=== PATIENT | male | born 1960 | race Caucasian/White ===

== ENCOUNTER → 2018-03-05 15:05 | Outpatient (POV) | payer MEDICARE, MEDICAID, SELFPAY ==
[2018-03-05 17:00] LABS: Basophils # 0.1 K/mm3 (0-0.2); Basophils % 0.6 % (0.1-2.0); Eosinophils # 0.3 K/mm3 (0.0-0.4); Eosinophils % 2.5 % (0.1-12.0); Hematocrit 54.9 % (42.0-52.0); Hemoglobin 16.9 g/dL (14.1-18.0); Lymphocytes # 2.1 K/mm3 (0.7-4.5); Mean Corpuscular HGB Conc 30.7 g/dL (31.8-35.4); Mean Corpuscular Hemoglobin 26.2 pg (27.0-31.2); Mean Corpuscular Volume 85.1 fl (80-94); Mean Platelet Volume 11.4 fl (7.4-10.4); Monocytes # 0.2 K/mm3 (0.1-1.0); Monocytes % 2.2 % (1.7-9.3); Neutrophils # 7.4 K/mm3 (1.8-7.8); Neutrophils % 73.5 % (37.0-80.0); Platelet Count 88 K/mm3 (142-424); Red Blood Count 6.45 M/mm3 (4.60-6.20); Red Cell Distribution Width 15.4 % (11.5-17.5); White Blood Count 10.1 K/mm3 (4.8-10.8)
[2018-03-05 18:48] LABS: Alanine Aminotransferase 31 U/L (12-78); Albumin Level 4.8 gm/dL (3.4-5.0); Albumin/Globulin Ratio 1.2 (1.1-1.8); Alkaline Phosphatase 133 U/L (46-116); Anion Gap 15.3 mEq/L (5-15); Aspartate Amino Transferase 21 U/L (15-37); Bilirubin,Total 1.6 mg/dL (0.2-1.0); Blood Urea Nitrogen 10 mg/dL (7-18); Calcium 9.6 mg/dL (8.5-10.1); Carbon Dioxide 29 mmol/L (21.0-32.0); Chloride 98 mmol/L (98-107); Creatinine,Serum 0.82 mg/dL (0.70-1.30); Estimated Glomerular Filt Rate 96 ml/min (>60); GFR (African American) 116 ML/MIN (>60); Glucose 89 mg/dL (74-106); Potassium 4.3 mmoL/L (3.5-5.1); Sodium 138 mmol/L (136-145); Total Protein,Serum 8.8 gm/dL (6.4-8.2)
[2018-03-07 11:17] LABS: Alpha-1-Antitrypsin 126 mg/dL (90-200)
[2018-03-08 17:06] LABS: Phenotype (PI) MZ (.)
[2018-03-09 20:24] LABS: Immunoglobulin E, Total 70 IU/mL (0-100)
== END ==
PROVIDERS: Family Provider Family Medicine; PCP Emergency Medicine; Visit Provider Internal Medicine
DX: J44.9 Chronic obstructive pulmonary disease, unspecified (principal); J30.9 Allergic rhinitis, unspecified; Z82.5 Family history of asthma and other chronic lower respiratory diseases; F17.200 Nicotine dependence, unspecified, uncomplicated
CPT/HCPCS: 36415; 80053; 82104; 82785; 85025

== ENCOUNTER → 2018-04-17 07:38 | Outpatient (CLI) | payer MEDICARE, MEDICAID, SELFPAY ==
--- NOTE | 2018-04-17 07:41 | CT_ITS ---
EXAM: CT LUNG LOW DOSE WO CONTRAST TECHNIQUE: The exam was performed on a [employer] Light Speed [address] scanner using 3.0 mGy CTDI. A low dose helical CT CHEST was performed on a multi-detector scanner. All CT scans at this facility use one or more dose reduction techniques, viz.: automated exposure control; ma/kV adjustment per patient size (including targeted exams where dose is matched to indication; i.e. head) or iterative reconstruction technique. The LDCT was performed in a facility that meets the criteria for the screening program. Data regarding this exam was submitted to [employer] which is an approved registry. The order for this exam indicates that it came as a result of a lung cancer screening counseling shard decision-making visit that included all the elements required of such a visit including smoking cessation. The radiologist interpreting this exam meets the CMS criteria for the LDCT lung cancer screening program. The exam is reported using the Lung-RADS classification scale and reported to the ACR registry. NOTE: This study was performed for the specific purposes of lung cancer screening and is not an alternative to diagnostic chest CT. RADIATION DOSE: CTDI vol(CT dose Index-volume) = 2.9mGy DLP (Dose Length Product) = 110.86 mGy-cm ========= COMPARISON: CTA chest from March 2014 HISTORY: Currently smoking 1 pack per day for 50 years = 50 pack-year history FINDINGS: No suspicious lung nodules or masses. . Benign nodules(Category1)None Tiny benign calcified granuloma 3 mm at right middle lobe just anterior to the major fissure. Axial slice 35 sagittal 28. LUNG PARENCHYMA Emphysema: Mild centrilobular emphysematous changes . . Minimal scarring & minor fibrotic changes most evident towards the right lung base posteriorly but also seen on the left lung base. This. Slight blunting at the posterior sulcus due to some chronic pleural changes posterior sulcus.. Also note scant fibrotic changes just adjacent mediastinum superior right chest. . Airways appear satisfactory. 22 Mediastinum Scattered small moderate mediastinal lymph nodes unchanged since The largest at the precarinal region measuring 17 mm x just over 9 mm, has remained stable. A smaller right paratracheal node measuring 11 mm stable. Calcification aortic arch and origin of great vessels moderate size benign-appearing axillary lymph nodes.. OTHER ANATOMIC REGIONS Lymph Nodes: No enlarged lymph nodes evident. Scattered small nodes are present in the mediastinum and evonne Pleura: Unremarkable Cardiac: Coronary artery calcifications. Heart normal size and today's study no pericardial effusion. OTHER FINDINGS: No uppermost abdomen. Renal vascular calcifications on right. Likely sludge in gallbladder. No calcified stones. IMPRESSION: 1. Mild emphysematous changes Lung styles appear stable and similar since [address] . Minimal scarring most evident towards bases 2. No suspicious nodule or lung mass. 3. Lung RADS Category: 1 Only note small calcified granuloma RML. Not of concern 4.. Moderately extensive Coronary artery calcification RECOMMENDATIONS: 12 monthd LDCT follow-up
== END ==
PROVIDERS: Family Provider Family Medicine; PCP Emergency Medicine; Visit Provider Internal Medicine
DX: Z12.2 Encounter for screening for malignant neoplasm of respiratory organs; Z87.891 Personal history of nicotine dependence; J44.9 Chronic obstructive pulmonary disease, unspecified; J30.9 Allergic rhinitis, unspecified

== ENCOUNTER → 2018-07-18 14:32 | Outpatient (CLI) | payer MEDICARE, MEDICAID, SELFPAY | PROVIDERS: PCP Emergency Medicine; Visit Provider Internal Medicine Cardiovascular Disease | DX: I10 Essential (primary) hypertension; R42 Dizziness and giddiness | CPT/HCPCS: 93225 ==

== ENCOUNTER → 2018-08-06 06:44 | Outpatient (CLI) | payer MEDICARE, MEDICAID, SELFPAY ==
--- NOTE | 2018-08-06 06:47 | CA_ITS ---
PROCEDURE: 2-D M-mode and color Doppler study INDICATIONS FOR THE TEST: Chest pain COPD+ Heart Murmur Tobacco Smoking+ Palpitations Fatigue Syncope Edema Hypertension+Diabetes Mellitus Rheumatic Fever SOB RODARTE Obesity Hyperlipidemia Family History HD Additional History CATH, IN PATIENT INFORMATION HEIGHT: 64 WEIGHT:168 GENDER: Male B/P:105/64 2-D/M-MODE INTERPRETATION: 2-D MEASUREMENTS OBSERVED VALUES IN CMS Right Ventricular Dimension (RVDd) 2.2 Interventricular Septum (Thickness)(IVsd) 1.6 Left Ventricular Internal Dimensions(LVIDd) 4.5 Left Ventricular Posterior Wall (Thickness)(LVPWd) 0.8 Aortic Root 3.1 Aortic Cusp Separation 2.0 Left Atrial Dimensions (LAD) 3.8 2D 1. Technically difficult study because of the patient's factor and poor acoustic windows 2. The left atrium is mildly enlarged, left ventricle is normal size, mild concentric left ventricular hypertrophy, visually estimated ejection fraction 50%, with inferior wall hypokinesis. Endocardial surface of poorly visualized. 3. The right atrium and the ventricular normal size and contractility. 4. The aortic valve is minimally thickened and fibrosed. 5. The mitral and tricuspid valvular grossly normal. 6. No significant pericardial effusion noted. DOPPLER INTERROGATION: Doppler interrogation of the aortic, mitral and tricuspid valvular presence of mild mitral and tricuspid regurgitation, tricuspid regurgitation jet velocity is inadequate for calculation of the right ventricular systolic pressure, grade 1 diastolic dysfunction seen with tissue Doppler evidence of raised left atrial pressure. CONCLUSION: 1. Technically difficult study because of the patient's factor and poor acoustic windows 2. Mildly enlarged left atrium, normal left ventricular size, mild concentric left ventricular hypertrophy, visually estimated ejection fraction 50% with no wall motion abnormality described above, grade 1 diastolic dysfunction seen with tissue Doppler evidence of raised left atrial pressure. 3. Mild mitral and tricuspid regurgitation 4. No significant pericardial effusion noted.
--- NOTE | 2018-08-06 06:47 | NM_ITS ---
History and Indications: Hypertension, hyperlipidemia, tobacco use, shortness of breath and fatigue Procedure: Patient received a 0.4 mg of intravenous Lexiscan, resting heart rate was 48 bpm resting blood pressure 101/61, with Lexiscan maximum heart rate achieved was 82 bpm which is less than 85% of the maximum predicted heart rate and a blood pressure was 111/80. With Lexiscan patient complained of shortness of breath Electrocardiogram: Resting echocardiogram showed sinus bradycardia, with Lexiscan less than 1.[address] segment depression noted from the baseline EKG. The EKG portion of the Lexiscan Myoview is nondiagnostic. Cardiac stress and resting SPECT images: Cardiac stress and resting SPECT images were obtained using technetium 99 Myoview 31.3 mCi at stress and 10.6 mCi at rest. Gated SPECT further analysis of segmental wall motion and calculation of the ejection fraction also done. Cardiac stress and resting SPECT images show a mild reversible, computer derived ejection fraction is 56% with no regional wall motion abnormality, right ventricle is normal size and contractility. Conclusion: 1. The EKG portion of the Lexiscan Myoview is nondiagnostic. 2. Scintigraphic evidence of mild reversible ischemia involving the apex, computer derived ejection fraction 56% with no regional wall motion abnormality, right ventricle is normal size and contractility. 3. Abnormal Lexiscan Myoview study.
--- NOTE | 2018-08-06 07:35 | HMH.ITSHM ---
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 []ASA BISOPROLOL MONTELUKAST LEVOCETIRIZINE MECLIZINE BENAZEPRIL VITAMIN D3 VENTOLIN SYMBICORT
--- NOTE | 2018-08-06 07:52 | CI_ITS ---
Cerebrovascular Exam Indications: 780.4 Dizziness and giddiness. IMPRESSIONS 1. The bilateral vertebral arteries are patent with normal antegrade flow. 2. Study suggests 20-49% stenosis involving the right internal carotid artery and the left internal carotid artery, lower end of scale Carotid duplex study. Complete study and Doppler flow study including spectral analysis, color and may scale imaging. Height: Height: 165.1cm. Height: 65in. Weight: Weight: 76.2kg. Weight: 167.7lb. Body mass index: BMI: 28kg/m^2. Body surface area: BSA: 1.89m^2. Location: Vascular laboratory. Patient status: Outpatient. Tables: Arterial flow: + +--------+--------+ Location V sys V ed + +--------+--------+ Right CCA - proximal 105cm/s 32.2cm/s + +--------+--------+ Right CCA - distal 71.1cm/s 23.2cm/s + +--------+--------+ Right ECA 126cm/s -------- + +--------+--------+ Right ICA - proximal 93.6cm/s 30.7cm/s + +--------+--------+ Right ICA - mid 80.8cm/s 26.2cm/s + +--------+--------+ Right ICA - distal 76.8cm/s 31.4cm/s + +--------+--------+ Right vertebral 61.2cm/s -------- + +--------+--------+ Left CCA - proximal 97.7cm/s 24.6cm/s + +--------+--------+ Left CCA - distal 85.4cm/s 18.2cm/s + +--------+--------+ Left ECA 121cm/s -------- + +--------+--------+ Left ICA - proximal 57.3cm/s 14.3cm/s + +--------+--------+ Left ICA - mid 63.6cm/s 24.7cm/s + +--------+--------+ Left ICA - distal 72.3cm/s 26.7cm/s + +--------+--------+ Left vertebral 25.8cm/s -------- + +--------+--------+ Velocity ratios: + + + + + + Right, V sys Right, V ed Left, V sys Left, V ed + + + + + + Max ICA/dist CCA 1.32 1.35 0.85 1.47 + + + + + + (Report amended ) Electronically signed by: Ron Long [id number]
== END ==
PROVIDERS: PCP Emergency Medicine; Visit Provider Internal Medicine Cardiovascular Disease
DX: F17.200 Nicotine dependence, unspecified, uncomplicated (principal); I10 Essential (primary) hypertension; J44.9 Chronic obstructive pulmonary disease, unspecified; R06.09 Other forms of dyspnea; R42 Dizziness and giddiness
CPT/HCPCS: 78452; 93017; 93306; 93880; A9502; J2785

== ENCOUNTER → 2018-08-27 12:55 | Outpatient (POV) | payer MEDICARE, MEDICAID, SELFPAY | PROVIDERS: Visit Provider Internal Medicine | DX: Z00.00 Encounter for general adult medical examination without abnormal findings (principal) ==

== ENCOUNTER 2019-09-23 10:39 | Inpatient (IN) ==
--- NOTE | 2019-09-23 10:58 | Emergency Department Note ---
ED Disposition Condition on Discharge: Critical - Critical Care Critical Care Time: Yes Total Critical Care Time: 60 Vital system(s) involved:: Circulatory Failure, Shock (Hemorrhage) My critical care processes included: Assessment & monitoring of V/S, Initial and Re-exams, Data Review/Interpretation, Coordinating Care, Medication Orders and management, Documentation <Jensen Laguerre - Last Filed: 09/23/19 20:03> <Jan Pepper - Last Filed: 09/24/19 04:44> Clinical Impression: Gastrointestinal bleeding, upper, Blood loss anemia, Hemorrhagic shock Atrial flutter Qualifiers: Atrial flutter type: unspecified Qualified Code(s): I48.92 - Unspecified atrial flutter Disposition: Admitted as Observation Referrals: Jan Pepper MD [Primary Care Provider] - Attestation: On 09/23/19, the high probability of a clinically significant, sudden or life threatening deterioration of the following system(s) required my full and direct attention, intervention and personal management. The time I documented below is in addition to time spent performing reported procedures but includes the following listed in this critical care notation. Medical Decision Making - Toby Inquiry Pt receiving controlled substance: No - Lab Data Result diagrams: 09/23/19 15:22 09/23/19 10:55 - Radiology Data #1 Image(s): Chest Image Reviewed: Yes I reviewed the patient's radiology image - Physician Consults Physician Consulted: Charmaine Time: 11:29 Reason -: Cardiology Eval/Care Comment/Response: He concurs the rhythm is atrial flutter. Recommends not to cardiovert as he likely has been in atrial flutter for some time and has significant risk of stroke. Call back when hemoglobin is available. Additional Consult: Charmaine Time: 11:50 Reason -: Cardiology Eval/Care Comment/Response: Discussed hemoglobin of 7. Current blood pressure still in the 70s, drops down to 50 when he sits up. He recommends cardioversion. Additional Consult: Charmaine Time: 12:23 Reason -: Cardiology Eval/Care Comment/Response: Patient in sinus rhythm after cardioversion, but blood pressure still 60s systolic. He recommends Fred-Synephrine drip. Lab is called and the patient's previous emergency transfusion with O+ blood is giving them an ABO incompatibility on his current crossmatch. They will need to call pathologist to get blood released emergently. - Reevaluation(s) Time: 18:36 <Jensen Laguerre - Last Filed: 09/23/19 20:03> - Lab Data Result diagrams: 09/23/19 15:22 09/23/19 10:55 <Jan Pepper - Last Filed: 09/24/19 04:44> Vital Signs: 09/23/19 10:39 09/23/19 12:00 09/23/19 12:02 Temperature 98.3 F Temperature Source Oral Pulse Rate Pulse Rate [Right] 148 H 152 H 80 Respiratory Rate 20 18 16 TAR Vitals Timing Blood Pressure Blood Pressure [Right Arm] 101/81 L 79/50 L 81/52 L Blood Pressure Mean Blood Pressure Mean [Right Arm] 87 59 61 Blood Pressure Source Blood Pressure Source [Right Arm] Automatic Cuff Automatic Cuff Blood Pressure Position Blood Pressure Position [Right Arm] Sitting Supine 02 Sat by Pulse Oximetry 90 L 90 L 97 Oxygen Delivery Method Nasal Cannula Nasal Cannula Nasal Cannula Oxygen Flow Rate (LPM) 2 2 4 09/23/19 12:05 09/23/19 12:09 09/23/19 12:12 Temperature Temperature Source Pulse Rate Pulse Rate [Right] 86 85 86 Respiratory Rate 14 14 14 TAR Vitals Timing Blood Pressure Blood Pressure [Right Arm] 73/46 L 70/42 L 65/41 L Blood Pressure Mean Blood Pressure Mean [Right Arm] 55 51 49 Blood Pressure Source Blood Pressure Source [Right Arm] Automatic Cuff Automatic Cuff Automatic Cuff Blood Pressure Position Blood Pressure Position [Right Arm] Supine Supine Supine 02 Sat by Pulse Oximetry 99 99 99 Oxygen Delivery Method Nasal Cannula Nasal Cannula Nasal Cannula Oxygen Flow Rate (LPM) 4 4 4 09/23/19 12:15 09/23/19 12:18 09/23/19 12:23 Temperature Temperature Source Pulse Rate Pulse Rate [Right] 85 84 84 Respiratory Rate 14 14 14 TAR Vitals Timing Blood Pressure Blood Pressure [Right Arm] 78/0 L 63/44 L 70/38 L Blood Pressure Mean Blood Pressure Mean [Right Arm] 26 50 48 Blood Pressure Source Blood Pressure Source [Right Arm] Automatic Cuff Blood Pressure Position Blood Pressure Position [Right Arm] Supine Supine Supine 02 Sat by Pulse Oximetry 99 97 98 Oxygen Delivery Method Nasal Cannula Nasal Cannula Nasal Cannula Oxygen Flow Rate (LPM) 4 4 4 09/23/19 12:28 09/23/19 12:33 09/23/19 12:48 Temperature Temperature Source Pulse Rate Pulse Rate [Right] 84 84 85 Respiratory Rate 14 14 14 TAR Vitals Timing Blood Pressure Blood Pressure [Right Arm] 60/39 L 67/42 L 74/53 L Blood Pressure Mean Blood Pressure Mean [Right Arm] 46 50 60 Blood Pressure Source Blood Pressure Source [Right Arm] Automatic Cuff Automatic Cuff Blood Pressure Position Blood Pressure Position [Right Arm] Supine Supine Supine 02 Sat by Pulse Oximetry 97 98 98 Oxygen Delivery Method Nasal Cannula Nasal Cannula Nasal Cannula Oxygen Flow Rate (LPM) 4 4 4 09/23/19 12:58 09/23/19 13:04 09/23/19 13:08 Temperature 97.5 F L Temperature Source Oral Pulse Rate 86 Pulse Rate [Right] 84 86 86 Respiratory Rate 14 14 18 TAR Vitals Timing Pre-Blood Vitals Blood Pressure 82/50 L Blood Pressure [Right Arm] 74/50 L 79/50 L 82/50 L Blood Pressure Mean 60 Blood Pressure Mean [Right Arm] 58 59 60 Blood Pressure Source Blood Pressure Source [Right Arm] Automatic Cuff Automatic Cuff Automatic Cuff Blood Pressure Position Blood Pressure Position [Right Arm] Supine Supine Supine 02 Sat by Pulse Oximetry 99 96 96 Oxygen Delivery Method Nasal Cannula Nasal Cannula Nasal Cannula Oxygen Flow Rate (LPM) 4 4 4 09/23/19 13:11 09/23/19 13:16 09/23/19 13:21 Temperature 97.8 F 97.3 F L 97.4 F L Temperature Source Oral Oral Oral Pulse Rate 87 87 86 Pulse Rate [Right] Respiratory Rate 18 18 18 TAR Vitals Timing Start Vitals 5 Minute 10 Minute Blood Pressure 83/54 L 83/49 L 85/43 L Blood Pressure [Right Arm] Blood Pressure Mean 63 60 57 Blood Pressure Mean [Right Arm] Blood Pressure Source Blood Pressure Source [Right Arm] Blood Pressure Position Blood Pressure Position [Right Arm] 02 Sat by Pulse Oximetry 97 95 95 Oxygen Delivery Method Oxygen Flow Rate (LPM) 09/23/19 13:26 09/23/19 13:34 09/23/19 13:46 Temperature 97.5 F L 97.9 F 98.0 F Temperature Source Oral Oral Oral Pulse Rate 86 85 85 Pulse Rate [Right] 86 85 Respiratory Rate 18 18 18 TAR Vitals Timing 15 Minute Completion Vitals Pre-Blood Vitals Blood Pressure 87/49 L 91/55 L 84/54 L Blood Pressure [Right Arm] 84/49 L 91/55 L Blood Pressure Mean 61 67 64 Blood Pressure Mean [Right Arm] 60 67 Blood Pressure Source Automatic Cuff Blood Pressure Source [Right Arm] Blood Pressure Position Supine Blood Pressure Position [Right Arm] 02 Sat by Pulse Oximetry 95 95 100 Oxygen Delivery Method Nasal Cannula Nasal Cannula Oxygen Flow Rate (LPM) 2 2 09/23/19 13:52 09/23/19 13:57 09/23/19 14:02 Temperature 97.5 F L 97.8 F 97.9 F Temperature Source Oral Oral Oral Pulse Rate 86 85 88 Pulse Rate [Right] Respiratory Rate 18 18 18 TAR Vitals Timing Start Vitals 5 Minute 10 Minute Blood Pressure 96/62 L 100/56 L 108/66 L Blood Pressure [Right Arm] Blood Pressure Mean 73 70 80 Blood Pressure Mean [Right Arm] Blood Pressure Source Blood Pressure Source [Right Arm] Blood Pressure Position Blood Pressure Position [Right Arm] 02 Sat by Pulse Oximetry 100 100 100 Oxygen Delivery Method Oxygen Flow Rate (LPM) 09/23/19 14:05 09/23/19 14:23 09/23/19 14:33 Temperature 97.8 F Temperature Source Oral Pulse Rate 87 Pulse Rate [Right] 87 93 H Respiratory Rate 18 18 18 TAR Vitals Timing Completion Vitals Blood Pressure 112/60 Blood Pressure [Right Arm] 105/70 L 90/60 L Blood Pressure Mean 77 Blood Pressure Mean [Right Arm] 81 70 Blood Pressure Source Blood Pressure Source [Right Arm] Automatic Cuff Automatic Cuff Blood Pressure Position Blood Pressure Position [Right Arm] Sitting Sitting 02 Sat by Pulse Oximetry 99 100 100 Oxygen Delivery Method Nasal Cannula Nasal Cannula Oxygen Flow Rate (LPM) 4 4 09/23/19 14:59 09/23/19 15:18 09/23/19 15:41 Temperature Temperature Source Pulse Rate Pulse Rate [Right] 86 82 85 Respiratory Rate 20 16 18 TAR Vitals Timing Blood Pressure Blood Pressure [Right Arm] 102/60 L 101/64 L 91/52 L Blood Pressure Mean Blood Pressure Mean [Right Arm] 74 76 65 Blood Pressure Source Blood Pressure Source [Right Arm] Automatic Cuff Automatic Cuff Automatic Cuff Blood Pressure Position Blood Pressure Position [Right Arm] Supine Sitting Sitting 02 Sat by Pulse Oximetry 99 98 98 Oxygen Delivery Method Nasal Cannula Nasal Cannula Nasal Cannula Oxygen Flow Rate (LPM) 4 4 4 09/23/19 16:06 09/23/19 16:24 09/23/19 16:27 Temperature Temperature Source Pulse Rate Pulse Rate [Right] 80 84 83 Respiratory Rate 18 18 18 TAR Vitals Timing Blood Pressure Blood Pressure [Right Arm] 85/51 L 82/42 L 95/60 L Blood Pressure Mean Blood Pressure Mean [Right Arm] 62 55 71 Blood Pressure Source Blood Pressure Source [Right Arm] Automatic Cuff Automatic Cuff Blood Pressure Position Blood Pressure Position [Right Arm] Sitting Sitting Sitting 02 Sat by Pulse Oximetry 99 98 98 Oxygen Delivery Method Nasal Cannula Nasal Cannula Nasal Cannula Oxygen Flow Rate (LPM) 4 4 4 09/23/19 16:43 09/23/19 16:54 09/23/19 17:25 Temperature Temperature Source Pulse Rate Pulse Rate [Right] 86 85 80 Respiratory Rate 18 18 18 TAR Vitals Timing Blood Pressure Blood Pressure [Right Arm] 100/58 L 107/52 L 99/58 L Blood Pressure Mean Blood Pressure Mean [Right Arm] 72 70 71 Blood Pressure Source Blood Pressure Source [Right Arm] Automatic Cuff Automatic Cuff Automatic Cuff Blood Pressure Position Blood Pressure Position [Right Arm] Sitting Sitting Sitting 02 Sat by Pulse Oximetry 97 96 99 Oxygen Delivery Method Nasal Cannula Nasal Cannula Nasal Cannula Oxygen Flow Rate (LPM) 4 4 4 09/23/19 17:46 09/23/19 18:05 09/23/19 18:26 Temperature Temperature Source Pulse Rate Pulse Rate [Right] 88 84 84 Respiratory Rate 22 18 18 TAR Vitals Timing Blood Pressure Blood Pressure [Right Arm] 120/66 102/59 L 100/68 L Blood Pressure Mean Blood Pressure Mean [Right Arm] 84 73 78 Blood Pressure Source Blood Pressure Source [Right Arm] Automatic Cuff Automatic Cuff Automatic Cuff Blood Pressure Position Blood Pressure Position [Right Arm] Supine Sitting Sitting 02 Sat by Pulse Oximetry 98 98 97 Oxygen Delivery Method Nasal Cannula Nasal Cannula Nasal Cannula Oxygen Flow Rate (LPM) 4 4 4 09/23/19 18:40 09/23/19 18:56 09/23/19 19:00 Temperature Temperature Source Pulse Rate Pulse Rate [Right] 82 88 88 Respiratory Rate 18 18 18 TAR Vitals Timing Blood Pressure Blood Pressure [Right Arm] 119/70 97/59 L 97/57 L Blood Pressure Mean Blood Pressure Mean [Right Arm] 86 71 70 Blood Pressure Source Blood Pressure Source [Right Arm] Automatic Cuff Automatic Cuff Automatic Cuff Blood Pressure Position Blood Pressure Position [Right Arm] Sitting Sitting Sitting 02 Sat by Pulse Oximetry 99 95 95 Oxygen Delivery Method Nasal Cannula Nasal Cannula Nasal Cannula Oxygen Flow Rate (LPM) 4 3 3 09/23/19 19:26 09/23/19 19:58 09/23/19 22:17 Temperature Temperature Source Pulse Rate Pulse Rate [Right] 89 85 64 Respiratory Rate 16 16 20 TAR Vitals Timing Blood Pressure Blood Pressure [Right Arm] 98/57 L 117/60 124/75 Blood Pressure Mean Blood Pressure Mean [Right Arm] 70 79 91 Blood Pressure Source Blood Pressure Source [Right Arm] Automatic Cuff Automatic Cuff Automatic Cuff Blood Pressure Position Blood Pressure Position [Right Arm] Supine Supine Sitting 02 Sat by Pulse Oximetry 96 96 92 L Oxygen Delivery Method Nasal Cannula Nasal Cannula Nasal Cannula Oxygen Flow Rate (LPM) 2 2 2 09/23/19 22:45 09/23/19 23:00 09/23/19 23:30 Temperature Temperature Source Pulse Rate Pulse Rate [Right] 85 81 81 Respiratory Rate 16 16 16 TAR Vitals Timing Blood Pressure Blood Pressure [Right Arm] 102/59 L 89/49 L 93/53 L Blood Pressure Mean Blood Pressure Mean [Right Arm] 73 62 66 Blood Pressure Source Blood Pressure Source [Right Arm] Automatic Cuff Automatic Cuff Automatic Cuff Blood Pressure Position Blood Pressure Position [Right Arm] Supine Supine Supine 02 Sat by Pulse Oximetry 95 94 L 92 L Oxygen Delivery Method Nasal Cannula Nasal Cannula Nasal Cannula Oxygen Flow Rate (LPM) 2 2 2 09/23/19 23:45 09/24/19 00:00 09/24/19 00:15 Temperature Temperature Source Pulse Rate Pulse Rate [Right] 82 82 84 Respiratory Rate 16 16 16 TAR Vitals Timing Blood Pressure Blood Pressure [Right Arm] 95/48 L 95/59 L 93/54 L Blood Pressure Mean Blood Pressure Mean [Right Arm] 63 71 67 Blood Pressure Source Blood Pressure Source [Right Arm] Automatic Cuff Automatic Cuff Automatic Cuff Blood Pressure Position Blood Pressure Position [Right Arm] Supine Supine Supine 02 Sat by Pulse Oximetry 98 95 96 Oxygen Delivery Method Nasal Cannula Nasal Cannula Nasal Cannula Oxygen Flow Rate (LPM) 2 2 2 09/24/19 00:30 09/24/19 00:45 09/24/19 01:00 Temperature Temperature Source Pulse Rate Pulse Rate [Right] 85 89 83 Respiratory Rate 16 18 16 TAR Vitals Timing Blood Pressure Blood Pressure [Right Arm] 90/57 L 92/56 L 90/57 L Blood Pressure Mean Blood Pressure Mean [Right Arm] 68 68 68 Blood Pressure Source Blood Pressure Source [Right Arm] Automatic Cuff Automatic Cuff Automatic Cuff Blood Pressure Position Blood Pressure Position [Right Arm] Supine Supine Supine 02 Sat by Pulse Oximetry 94 L 94 L 97 Oxygen Delivery Method Nasal Cannula Nasal Cannula Nasal Cannula Oxygen Flow Rate (LPM) 2 2 2 09/24/19 01:30 09/24/19 03:26 09/24/19 04:39 Temperature Temperature Source Pulse Rate Pulse Rate [Right] 79 97 H 83 Respiratory Rate 16 TAR Vitals Timing Blood Pressure Blood Pressure [Right Arm] 98/53 L 101/72 L 93/53 L Blood Pressure Mean Blood Pressure Mean [Right Arm] 68 81 66 Blood Pressure Source Blood Pressure Source [Right Arm] Automatic Cuff Automatic Cuff Automatic Cuff Blood Pressure Position Blood Pressure Position [Right Arm] Supine Sitting 02 Sat by Pulse Oximetry 99 Oxygen Delivery Method Nasal Cannula Oxygen Flow Rate (LPM) 2 - Lab Data Lab Results 09/23/19 10:55: WBC 46.5 H*, RBC 2.64 L, Hgb 7.0 L*, Hct 23.0 L*, MCV 87.3, MCH 26.4 L, MCHC 30.2 L, RDW 17.5, Plt Count 135 L, MPV 12.4 H, Neut % (Auto) 94.5 H , Lymph % (Auto) 3.1 L, Mcleod % (Auto) 1.7, Eos % (Auto) 0.3, Baso % (Auto) 0.5, Neut # (Auto) 43.9 H, Lymph # (Auto) 1.4, Mcleod # (Auto) 0.8, Eos # (Auto) 0.2, Baso # (Auto) 0.3 H, Total Counted 100, Neutrophils % (Manual) 86 H, Band Neutrophils % 1.0, Lymphocytes % (Manual) 3 L, Monocytes % (Manual) 2, Myelo cytes % 8 H, Platelet Estimate Slight decrease, RBC Morphology Not Reportable, Hypochromasia 1+ 09/23/19 10:55: Sodium 138, Potassium 4.4, Chloride 104, Carbon Dioxide 27, Anion Gap 11.4, BUN 48 H, Creatinine 1.08, Estimated Creat Clear 79, Estimated GFR 70, Est GFR ( Amer) 84, Glucose 144 H, Calcium 7.3 L, Total Bilirubin 0.6, AST 30, ALT 42, Alkaline Phosphatase 86, Troponin I 0.03, Total Protein 4.6 L, Albumin 2.0 L, Globulin 2.6, Albumin/Globulin Ratio 0.8 L 09/23/19 10:55: Blood Type A Negative, Antibody Screen Negative, Crossmatch (AHG) See Detail 09/23/19 10:55: TSH 3.23, Free T4 Index 3.0 L, Thyroxine (T4) 7.7, T3 Uptake 39 09/23/19 13:55: Urine Color Yellow, Urine Appearance Clear, Urine pH 6.0, Ur Specific [place] 1.015, Urine Protein Negative, Urine Glucose (UA) Negative, Urine Ketones Negative, Urine Blood Negative, Urine Nitrate Negative, Urine Bilirubin Negative, Urine Urobilinogen 0.2, Ur Leukocyte Esterase Negative, Urine RBC None, Urine WBC Occasional, Ur Squamous Epith Cells Occasional, Urine Bacteria Trace, Urine Mucus Trace 09/23/19 14:50: Troponin I 0.03 09/23/19 14:50: Lactate 1.6 09/23/19 15:22: Hgb 10.0 L D, Hct 32.2 L Orders (Tests/Meds): ED MEDICATIONS Generic Name Dose Route Start Last Admin Trade Name Jeanmarieq PRN Reason Stop Dose Admin Sodium Chloride 250 mls @ 25 mls/hr 09/23/19 11:45 09/24/19 03:17 Sod Chlor 0.9% 250ml Bag IV 09/24/19 11:44 Not Given .Q10H ISIDORO Phenylephrine HCl 10 mg/ 250 mls @ 60 mls/hr 09/23/19 12:30 09/24/19 03:17 Sodium Chloride IV 10/23/19 12:29 Not Given .Q4H10M ISIDORO Protocol 40 MCG/MIN Pantoprazole Sodium 80 mg/ 100 mls @ 10 mls/hr 09/23/19 16:02 09/24/19 03:48 Sodium Chloride IV 09/26/19 16:01 10 mls/hr .Q10H ISIDORO Administration Sodium Chloride 1,000 mls @ 100 mls/hr 09/23/19 16:30 09/23/19 16:48 Sod Chlor 0.9% 1000ml Bag IV 10/23/19 16:29 100 mls/hr .Q10H ISIDORO Administration Discontinued Medications Generic Name Dose Route Start Last Admin Trade Name Freq PRN Reason Stop Dose Admin Sodium Chloride 1,000 mls @ 999 mls/hr 09/23/19 10:45 09/23/19 11:02 Sod Chlor 0.9% 1000ml Bag IV 09/23/19 11:45 999 mls/hr .Q1H1M ISIDORO Administration Pantoprazole Sodium 80 mg/ 100 mls @ 100 mls/hr 09/23/19 15:01 09/23/19 15:20 Sodium Chloride IV 09/23/19 16:00 100 mls/hr ONCE ONE Administration Midazolam HCl 2 mg 09/23/19 11:58 09/23/19 12:00 Midazolam 2mg/2ml Vial IV 09/23/19 11:59 2 mg ONCE ONE Administration Midazolam HCl 2 mg 09/23/19 12:00 09/23/19 11:58 Midazolam 2mg/2ml Vial IV 09/23/19 12:01 2 mg ONCE ONE Administration Morphine Sulfate 2 mg 09/23/19 18:36 09/23/19 18:50 Morphine 4mg/Ml Syringe IV 09/23/19 18:37 2 mg ONCE ONE Administration ORDERS Category Date Time Status Blood Culture Stat Micro 09/23/19 14:50 Received - Radiology Data #1 Blunting left costophrenic angle. Increased interstitial markings in the bases. No significant change from previous. (Jensen Laguerre) - ECG Data Tracing #1 EKG interpreted by Jensen Laguerre MD: Rhythm: Regular, narrow complex tachycardia, likely atrial flutter Rate: 150 [place]: normal Ectopy: none Conduction: normal ST Segment Changes: Nonspecific T Wave Changes: Nonspecific Q Waves: none Prior electrocardiagrams reviewed. No change from prior tracings. Prior EKG looks the same, was interpreted as sinus tachycardia, but appears to be atrial flutter to me (Jensen Laguerre) - Physician Consults Other Consultation(s): 1:25 PM: Dr. Vu. Feels patient should be transferred to higher level of care. Patient agreeable, but will not consent to transfer to [facility]. 1:50 PM: Spoke with Dr. Villegas. [facility] ICU. Accepts patient. No beds currently available, but expects discharges later today. Keep n.p.o. No antibiotics unless blood pressure takes a turn for the worse or develops a fever. (Jensen Laguerre) - Reevaluation(s) Reevaluation #1: Feeling much better. Color is good. Vital signs much improved. Hemoglobin improved. Complains of a frontal headache which he says is from the oxygen. (Jensen Laguerre) Medical Decision Narrative: 10:45 AM: Patient's pain in his upper back resolved when he was laid back in the emergency room, started on oxygen, and fluid bolus begun. 11:00 AM: Discussed prior cardiac history with patient, given his EKG. He says he has no history of atrial fibrillation but has been told that his heart has "a flutter". He says they told him this at [facility] as well. He did not have to get cardioverted. He thinks they told him he needed to be on medicines for it. He says that they told him when he signed out that his heart was still fluttering. He says at one time he saw "Ye" at this hospital for his heart flutter. He says that they cut down his nebulizer treatments because of the flutter. 11:15 AM: Still pain-free. 8:00 PM: At shift change, I have discussed the patient with Dr. Pepper, who will assume care of the patient at this time. I have discussed all clinical information including history, physical and diagnostic study results. Preliminary diagnoses based on information available at this point have been recorded by me. Controlled substance administration and critical care statement are also preliminary, as of the time of handoff. (Jensen Laguerre) General Adult HPI - General Mode of Arrival: EMS Limitations: No Limitations Description of Symptoms (Recalled from ER Triage Doc. by RN): Pt c/o pain in the middle of his shoulder blades that radiates all the way down to his middl back, pt states he signed himself out of the hospital on sunday after being admitted for a GI bleed. Pt states he is still having rectal bleeding and feels weak all over. <Jensen Laguerre - Last Filed: 09/23/19 20:03> <Jan Pepper - Last Filed: 09/24/19 04:44> - General Chief complaint: GI Bleed Stated complaint: WEAKNESS Time Seen by Provider: 09/23/19 10:39 - History of Present Illness HPI narrative: Brought in by ambulance. Patient complains of pain across her shoulder blades in his posterior thoracic area that started 2 hours ago. Associated with some shortness of breath, diaphoresis, lightheadedness, but no nausea or vomiting. Says that he had the same symptoms many years ago and they thought he had had a heart attack. He said he did not receive any stents or bypass surgery. Patient was seen in this emergency department 6 days ago and had a GI bleed with hypotension, leukocytosis, and anemia. He was transferred to [facility]. He says he signed himself out on Sunday, 3 days ago. He says he signed out because he laid there for 4 days and they did not give him anything to eat. He says that he did have an upper endoscopy and they discovered an old ulcer that "broke loose". He says that since going home he did notice some b lackish stool this morning. He has not been vomiting blood anymore, as he had been when he was seen here last week. He is not a drinker. He says as far as he knows, he was not given any prescriptions at discharge and was told to take his previous medications at the same dosage as before. States he is only on Bisoprol, Benazopril and aspirin. (Jensen Laguerre) - Related Data Home Medications Medication Instructions Recorded Confirmed Aspirin [Aspirin 325mg Tab] 325 mg PO DAILY 03/11/18 09/10/19 Umeclidinium [place] [Incruse 1 inh INHALATION DAILY 10/02/18 09/10/19 Ellipta] Previous Rx's Medication Instructions Recorded budesonide-formoterol HFA 160 2 puff INHALATION ONCE PRN #6 g 10/04/18 mcg-4.5 mcg/actuation aerosol inhaler benazepril 5 mg tablet 5 mg PO DAILY #90 tab 07/28/19 bisoprolol 5 1 tab PO DAILY #90 tab 07/28/19 mg-hydrochlorothiazide 6.25 mg tablet albuterol sulfate 90 mcg/actuation 2 puff INHALATION Q6H PRN #18 g 08/14/19 aerosol inhaler azithromycin 250 mg tablet 250 mg PO QDAY 5 Days #6 tab 09/10/19 prednisone 20 mg tablet 20 mg PO BID PRN 5 Days #10 tab 09/10/19 Allergies Allergy/AdvReac Type Severity Reaction Status Date / Time No Known Allergies Allergy Verified 09/10/19 12:48 [facility] History - Hepatitis A Screen Drug use history?: No High risk sexual behaviors?: No History of sexually transmitted infection?: No Currently employed?: No Childcare worker?: No Do you have indoor plumbing?: Yes Do you have electricity?: Yes I have reviewed the patient's past medical history: Yes Medical History: Reports:: Chronic Obstructive Pulmonary Disease (COPD), Congenital Heart Disease, Hypertension, Lung Disease, Myocardial Infarction Denies:: Diabetes Mellitus Type 1, Diabetes Mellitus Type 2, Internal Pacemaker, Seizures Comment: Other Surgeries: Yes: Cardiac Catheterization, Colonoscopy, Other (back surgery). No: Pacemaker Amputation: No Fractures: No Comment: back surgery - Social History Smoking Status: Current every day smoker Tobacco Type: cigarettes # Packs/Day (cigarettes): 1 Alcohol Intake: never Substance Use Type: denies use Occupational Status: retired Household Members: spouse Family Hx:: Coronary Artery Disease, Heart Attack, Cancer <Jensen Laguerre - Last Filed: 09/23/19 20:03> - Hepatitis A Screen Attestation statement:: This patient has been screened for Hepatitis A risk factors. ROS Obtained: Yes All systems reviewed & no additional complaints - Constitutional Constitutional: Denies fever(s) - Cardiovascular Cardiovascular: Reports as per HPI, Reports chest pain - Respiratory Respiratory: Yes dyspnea - Gastrointestinal Gastrointestingal: Reports: black, tarry stools. Denies: abdominal pain, bright red blood in stools, vomiting <Jensen Laguerre - Last Filed: 09/23/19 20:03> Physical Exam - General General appearance: alert - Head Head exam: atraumatic, normocephalic - Eye Eye exam: Present: normal appearance, EOMI - ENT ENT exam: Present: normal oropharynx - Neck Neck exam: Present: normal inspection, trachea midline - Chest Chest inspection: Present: normal inspection, symmetric chest wall rise - Respiratory Respiratory exam: Present: normal lung sounds bilaterally - Cardiovascular Cardiovascular exam: Present: tachycardia - Abdominal Exam Abdominal exam: Present: soft. Absent: distention, tenderness - Extremities Exam Extremities exam: Present: normal inspection - Neurological Exam Neurological exam: Present: alert, oriented X3 - Psychiatric Psychiatric exam: Present: normal affect, normal mood - Skin Skin exam: Present: pallor <Jensen Laguerre - Last Filed: 09/23/19 20:03> - General Comment: Tachycardic. Pale. (Jensen Laguerre) Procedures <Jensen Laguerre - Last Filed: 09/23/19 20:03> - Miscellaneous Procedure Procedure Performed: Cardioversion performed with intravenous sedation of Versed. 4 mg of Versed given. Patient cardioverted with 50 J synchronized. Sinus rhythm obtained. Blood pressure remains hypotensive, 60s. IV fluid boluses continued. Patient tolerated procedure well without complications. (Jensen Laguerre)
[2019-09-23 11:27] LABS: Albumin/Globulin Ratio 0.8 (1.1-1.8); Anion Gap 11.4 mEq/L (5-15); Basophils # 0.3 K/mm3 (0-0.2); Basophils % 0.5 % (0.1-2.0); Bilirubin,Total 0.6 mg/dL (0.2-1.0); Calcium 7.3 mg/dL (8.5-10.1); Eosinophils # 0.2 K/mm3 (0.0-0.4); Eosinophils % 0.3 % (0.1-12.0); Globulin 2.6 gm/dl (1.3-3.2); Lymphocytes # 1.4 K/mm3 (0.7-4.5); Lymphocytes % 3.1 % (10-50); Mean Corpuscular HGB Conc 30.2 g/dL (31.8-35.4); Mean Corpuscular Volume 87.3 fl (80-94); Mean Platelet Volume 12.4 fl (7.4-10.4); Monocytes # 0.8 K/mm3 (0.1-1.0); Monocytes % 1.7 % (1.7-9.3); Neutrophils # 43.9 K/mm3 (1.8-7.8); Neutrophils % 94.5 % (37.0-80.0); Platelet Count 135 K/mm3 (142-424); Red Blood Count 2.64 M/mm3 (4.60-6.20); Red Cell Distribution Width 17.5 % (11.5-17.5); Total Protein,Serum 4.6 gm/dL (6.4-8.2)
[2019-09-23 11:28] LABS: White Blood Count 46.5 K/mm3 (4.8-10.8)
[2019-09-23 12:00] LABS: Lymphocytes % 3 % (10-50); Monocytes % 2 % (2-9); Myelocytes % 8 (0-1); Neutrophils % 86 % (42-76); Total Cells Counted 100
[2019-09-23 12:04] LABS: Hypochromasia 1+; Thyroid Stimulating Hormone 3.23 uIU/ml (0.358-3.740)
[2019-09-23 14:05] LABS: Appearance,Urine CLEAR (Clear); Bilirubin,Urine Negative (Negative); Blood, Urine Negative (Negative); Color,Urine YELLOW (Yellow); Glucose,Urine (UA) Negative (Negative); Ketones,Urine Negative (Negative); Leukocyte Esterase,Urine Negative (Negative); Microscopic, Urine URINE MICROSCOPIC (MICROSCOPIC); Protein,Urine Negative (Negative); Specific Gravity, Urine 1.015 (1.005-1.030); Urobilinogen,Urine 0.2 EU/dl (0.2)
[2019-09-23 14:16] LABS: Bacteria,Urine Trace /lpf; Mucus,Urine Trace /lpf; Squamous Epithelial Cell,Urine Occasional #/hpf (0-5); WBC,Urine Occasional #/hpf (0-3)
[2019-09-23 15:29] LABS: Hematocrit 32.2 % (42.0-52.0)
--- NOTE | 2019-09-24 08:55 | H&P/Discharge Summary ---
General - General Admission date:: 09/24/19 Discharge date: 09/24/19 *Admission Date: 09/23/19 *Chief complaint: vomiting *History of present illness: this wm has complicated course of presenting to [facility] about a week ago with hypotensive gi bleeding requiring transfer to and blood transfusions rought in by ambulance. Patient complains of pain across her shoulder blades in his posterior thoracic area that started 2 hours ago. Associated with some shortness of breath, diaphoresis, lightheadedness, but no nausea or vomiting. Says that he had the same symptoms many years ago and they thought he had had a heart attack. He said he did not receive any stents or bypass surgery. Patient was seen in this emergency department 6 days ago and had a GI bleed with hypotension, leukocytosis, and anemia. He was transferred to [facility]. He says he signed himself out on Sunday, 3 days ago. He says he signed out because he laid there for 4 days and they did not give him anything to eat. He says that he did have an upper endoscopy and they discovered an old ulcer that "broke loose". He says that since going home he did notice some blackish stool this morning. He has not been vomiting blood anymore, as he had been when he was seen here last week. He is not a drinker. He says as far as he knows, he was not given any prescriptions at discharge and was told to take his previous medications at the same dosage as before. States he is only on Bisoprol, Benazopril and aspirin. (Jensen Laguerre) he had complicated course in the ed -ardioversion performed with intravenous sedation of Versed. 4 mg of Versed given. Patient cardioverted with 50 J synchronized. Sinus rhythm obtained. Blood pressure remains hypotensive, 60s. IV fluid boluses continued. Patient tolerated procedure well without complications. (Jensen Laguerre) ysician Consulted: Charmaine Time: 11:29 Reason -: Cardiology Eval/Care Comment/Response: He concurs the rhythm is atrial flutter. Recommends not to cardiovert as he likely has been in atrial flutter for some time and has significant risk of stroke. Call back when hemoglobin is available. Additional Consult: Charmaine Time: 11:50 Reason -: Cardiology Eval/Care Comment/Response: Discussed hemoglobin of 7. Current blood pressure still in the 70s, drops down to 50 when he sits up. He recommends cardioversion. Additional Consult: Charmaine Time: 12:23 Reason -: Cardiology Eval/Care Comment/Response: Patient in sinus rhythm after cardioversion, but blood pressure still 60s systolic. He recommends Fred-Synephrine drip. Lab is called and the patient's previous emergency transfusion with O+ blood is giving them an ABO incompatibility on his current crossmatch. They will need to call pathologist to get blood released emergently. pt has been accepted at and awaiting transfer for [facility] History I have reviewed the patient's past medical history: Yes Medical History: Reports:: Chronic Obstructive Pulmonary Disease (COPD), Congenital Heart Disease, Hyperlipidemia, Hypertension, Lung Disease, Myocardial Infarction, Palpitations Denies:: Diabetes Mellitus Type 1, Diabetes Mellitus Type 2, Internal Pacemaker, MRSA, Seizures *Have you ever received a pneumonia vaccine?: No *Have you received a flu vaccine this season?: No Other Surgeries: Yes: Cardiac Catheterization, Colonoscopy, Other (back surgery). No: Pacemaker Amputation: No Fractures: No - *Social History Educational Level: Attended High School Smoking Status: Current every day smoker Tobacco Type: cigarettes # Packs/Day (cigarettes): 1 Alcohol Intake: never Substance Use Type: denies use *Occupational Status:: retired Housing: house Household Members: spouse *Travel in the last 8 weeks: None Family Hx:: Coronary Artery Disease, Heart Attack, Cancer Review of Systems - Review of Systems Review of systems:: pertinent systems reviewed and negative unless documented below - Constitutional Denies fever(s) - Eyes Denies change in vision - ENT Denies sore throat - *Cardiovascular Reports rapid, pounding, or irregular heartbeat, Reports fast heart rate, Denies chest pain at rest - *Respiratory Reports shortness of breath, Denies cough - *Gastrointestinal Reports abdominal pain, Reports coffee ground vomit - *Genitourinary Denies blood in urine - *Musculoskeletal Denies joint pain - Integumentary/Breasts Denies rash - *Neurologic Denies confusion, Denies seizure-like activity - Psychiatric Denies anxiety Exam Vital signs and Labs for Last 24 Hours: Temp Pulse Resp BP Pulse Ox 98.3 F 76 20 93/53 L 98 09/24/19 08:00 09/24/19 08:00 09/24/19 08:00 09/24/19 08:00 09/24/19 08:00 Laboratory Results - last 24 hr 09/23/19 10:55: WBC 46.5 H*, RBC 2.64 L, Hgb 7.0 L*, Hct 23.0 L*, MCV 87.3, MCH 26.4 L, MCHC 30.2 L, RDW 17.5, Plt Count 135 L, MPV 12.4 H, Neut % (Auto) 94.5 H , Lymph % (Auto) 3.1 L, [place] % (Auto) 1.7, Eos % (Auto) 0.3, Baso % (Auto) 0.5, Neut # (Auto) 43.9 H, Lymph # (Auto) 1.4, [place] # (Auto) 0.8, Eos # (Auto) 0.2, Baso # (Auto) 0.3 H, Total Counted 100, Neutrophils % (Manual) 86 H, Band Ne utrophils % 1.0, Lymphocytes % (Manual) 3 L, Monocytes % (Manual) 2, Myelocytes % 8 H, Platelet Estimate Slight decrease, RBC Morphology Not Reportable, Hypochromasia 1+ 09/23/19 10:55: Sodium 138, Potassium 4.4, Chloride 104, Carbon Dioxide 27, Anion Gap 11.4, BUN 48 H, Creatinine 1.08, Estimated Creat Clear 79, Estimated GFR 70, Est GFR ( Amer) 84, Glucose 144 H, Calcium 7.3 L, Total Bilirubin 0.6, AST 30, ALT 42, Alkaline Phosphatase 86, Troponin I 0.03, Total Protein 4.6 L, Albumin 2.0 L, Globulin 2.6, Albumin/Globulin Ratio 0.8 L 09/23/19 10:55: Blood Type A Negative, Antibody Screen Negative, Crossmatch (AHG) See Detail 09/23/19 10:55: TSH 3.23, Free T4 Index 3.0 L, Thyroxine (T4) 7.7, T3 Uptake 39 09/23/19 13:55: Urine Color Yellow, Urine Appearance Clear, Urine pH 6.0, Ur Specific [place] 1.015, Urine Protein Negative, Urine Glucose (UA) Negative, Urine Ketones Negative, Urine Blood Negative, Urine Nitrate Negative, Urine Bilirubin Negative, Urine Urobilinogen 0.2, Ur Leukocyte Esterase Negative, Urine RBC None, Urine WBC Occasional, Ur Squamous Epith Cells Occasional, Urine Bacteria Trace, Urine Mucus Trace 09/23/19 14:50: Troponin I 0.03 09/23/19 14:50: Lactate 1.6 09/23/19 15:22: Hgb 10.0 L D, Hct 32.2 L I & O for Last 24 hours: Intake & Output 09/21/19 09/22/19 09/23/19 09/24/19 11:59 11:59 11:59 11:59 Intake Total 1850 / 1850 Output Total 1700 / 1700 Balance 150 / 150 Weight 170 lb 354 lb 4.525 oz - Constitutional no acute distress - *Routine HEENT Exam Head: Present: normocephalic Eye: Present: EOMI, PERRL ENT: Present: mucous membranes dry - *Routine Neck Exam Absent: JVD - *Routine Respiratory Exam Present: decreased breath sounds - *Routine Cardiovascular Exam Present: RRR, murmur - *Routine Abdominal Exam Present: soft. Absent: tenderness - *Routine Extremities Exam Absent: calf tenderness - *Routine Skin Exam Present: intact - *Routine Neurological Exam Present: alert, CN II-XII intact - Routine Psychiatric Exam Present: normal affect Hospital Course Hospital Course: pt has remained ok with blood pressure over 90 off drip - no more acute bleeding and hgb improved - awaiting transfer to no chest pain reported and neuro status intact Results Labs on day of discharge: Labs from last 24 hours 09/23/19 09/23/19 09/23/19 15:22 14:50 14:50 WBC RBC Hgb 10.0 L D Hct 32.2 L MCV MCH MCHC RDW Plt Count MPV Neut % (Auto) Lymph % (Auto) [place] % (Auto) Eos % (Auto) Baso % (Auto) Neut # (Auto) Lymph # (Auto) [place] # (Auto) Eos # (Auto) Baso # (Auto) Total Counted Neutrophils % (Manual) Band Neutrophils % Lymphocytes % (Manual) Monocytes % (Manual) Myelocytes % Platelet Estimate RBC Morphology Hypochromasia Sodium Potassium Chloride Carbon Dioxide Anion Gap BUN Creatinine Estimated Creat Clear Estimated GFR Est GFR ( Amer) Glucose Lactate 1.6 Calcium Total Bilirubin AST ALT Alkaline Phosphatase Troponin I 0.03 Total Protein Albumin Globulin Albumin/Globulin Ratio TSH Free T4 Index Thyroxine (T4) T3 Uptake Urine Color Urine Appearance Urine pH Ur Specific [place] Urine Protein Urine Glucose (UA) Urine Ketones Urine Blood Urine Nitrate Urine Bilirubin Urine Urobilinogen Ur Leukocyte Esterase Urine RBC Urine WBC Ur Squamous Epith Cells Urine Bacteria Urine Mucus Blood Type Antibody Screen Crossmatch ([facility]) 09/23/19 09/23/19 09/23/19 13:55 10:55 10:55 WBC RBC Hgb Hct MCV MCH MCHC RDW Plt Count MPV Neut % (Auto) Lymph % (Auto) [place] % (Auto) Eos % (Auto) Baso % (Auto) Neut # (Auto) Lymph # (Auto) [place] # (Auto) Eos # (Auto) Baso # (Auto) Total Counted Neutrophils % (Manual) Band Neutrophils % Lymphocytes % (Manual) Monocytes % (Manual) Myelocytes % Platelet Estimate RBC Morphology Hypochromasia Sodium Potassium Chloride Carbon Dioxide Anion Gap BUN Creatinine Estimated Creat Clear Estimated GFR Est GFR ( Amer) Glucose Lactate Calcium Total Bilirubin AST ALT Alkaline Phosphatase Troponin I Total Protein Albumin Globulin Albumin/Globulin Ratio TSH 3.23 Free T4 Index 3.0 L Thyroxine (T4) 7.7 T3 Uptake 39 Urine Color Yellow Urine Appearance Clear Urine pH 6.0 Ur Specific [place] 1.015 Urine Protein Negative Urine Glucose (UA) Negative Urine Ketones Negative Urine Blood Negative Urine Nitrate Negative Urine Bilirubin Negative Urine Urobilinogen 0.2 Ur Leukocyte Esterase Negative Urine RBC None Urine WBC Occasional Ur Squamous Epith Cells Occasional Urine Bacteria Trace Urine Mucus Trace Blood Type A Negative Antibody Screen Negative Crossmatch ([facility]) See Detail 09/23/19 09/23/19 10:55 10:55 WBC 46.5 H* RBC 2.64 L Hgb 7.0 L* Hct 23.0 L* MCV 87.3 MCH 26.4 L MCHC 30.2 L RDW 17.5 Plt Count 135 L MPV 12.4 H Neut % (Auto) 94.5 H Lymph % (Auto) 3.1 L [place] % (Auto) 1.7 Eos % (Auto) 0.3 Baso % (Auto) 0.5 Neut # (Auto) 43.9 H Lymph # (Auto) 1.4 [place] # (Auto) 0.8 Eos # (Auto) 0.2 Baso # (Auto) 0.3 H Total Counted 100 Neutrophils % (Manual) 86 H Band Neutrophils % 1.0 Lymphocytes % (Manual) 3 L Monocytes % (Manual) 2 Myelocytes % 8 H Platelet Estimate Slight decrease RBC Morphology Not Reportable Hypochromasia 1+ Sodium 138 Potassium 4.4 Chloride 104 Carbon Dioxide 27 Anion Gap 11.4 BUN 48 H Creatinine 1.08 Estimated Creat Clear 79 Estimated GFR 70 Est GFR ( Amer) 84 Glucose 144 H Lactate Calcium 7.3 L Total Bilirubin 0.6 AST 30 ALT 42 Alkaline Phosphatase 86 Troponin I 0.03 Total Protein 4.6 L Albumin 2.0 L Globulin 2.6 Albumin/Globulin Ratio 0.8 L TSH Free T4 Index Thyroxine (T4) T3 Uptake Urine Color Urine Appearance Urine pH Ur Specific [place] Urine Protein Urine Glucose (UA) Urine Ketones Urine Blood Urine Nitrate Urine Bilirubin Urine Urobilinogen Ur Leukocyte Esterase Urine RBC Urine WBC Ur Squamous Epith Cells Urine Bacteria Urine Mucus Blood Type Antibody Screen Crossmatch (AHG) DS: Diagnosis - Discharge Diagnosis (1) Atrial flutter Status: Acute (2) Blood loss anemia Status: Acute (3) Gastrointestinal bleeding, upper Status: Acute (4) Hemorrhagic shock Status: Acute Discharge Plan - Patient Discharge Instructions Patient Instructions: Blood Transfusion, Anemia, Atrial Flutter, DI for Atrial Flutter, DI for Blood Transfusion, Gastrointestinal Bleeding - Follow up Plan Home Medications: Home Medications Medication Instructions Recorded Confirmed Type Aspirin [Aspirin 325mg Tab] 325 mg PO DAILY 03/11/18 09/24/19 History budesonide-formoterol HFA 160 2 puff INHALATION ONCE PRN #6 g 10/04/18 09/24/19 Rx mcg-4.5 mcg/actuation aerosol inhaler benazepril 5 mg tablet 5 mg PO DAILY #90 tab 07/28/19 09/24/19 Rx bisoprolol 5 1 tab PO DAILY #90 tab 07/28/19 09/24/19 Rx mg-hydrochlorothiazide 6.25 mg tablet albuterol sulfate 90 mcg/actuation 2 puff INHALATION Q6H PRN #18 g 08/14/19 09/24/19 Rx aerosol inhaler Prescriptions/Medication Reconciliation: No Action bisoprolol 5 mg-hydrochlorothiazide 6.25 mg tablet 1 tab PO DAILY #90 tab benazepril 5 mg tablet 5 mg PO DAILY #90 tab budesonide-formoterol HFA 160 mcg-4.5 mcg/actuation aerosol inhaler 2 puff INHALATION ONCE PRN #6 g PRN Reason: copd albuterol sulfate 90 mcg/actuation aerosol inhaler 2 puff INHALATION Q6H PRN #18 g PRN Reason: shortness of breath or wheezing Aspirin [Aspirin 325mg Tab] 325 mg PO DAILY - Problem Reconciliation Problems Reviewed?: Yes
--- NOTE | 2019-09-24 09:04 | Swing Bed Reports ---
Discharge/Transfer - Discharge Disposition: Xfer Short-Term Hosp Condition: Critical - Plan of Care Resident has been informed of condition and prognosis?: Yes Mobility Status: ambulatory with assistance Goal of treatment:: stabilize gi bleeding Rehab Potential: Good I concur with the most recent H & P: Yes Date of most recent H & P: 09/24/19 Certification: I have reviewed and agree with this resident's plan of care. I certify that post-hospital long term facility services are required to be given on an inpatient basis because of the need for long term care on a continuing basis for the condition(s) for which he/she is receiving inpatient hospital services prior to admission to [facility] bed. I also certify that the resident meets existing SNF level of care definition.
[2019-09-24 09:55] LABS: Basophils # 0.4 K/mm3 (0-0.2); Basophils % 1.2 % (0.1-2.0); Eosinophils # 0.3 K/mm3 (0.0-0.4); Eosinophils % 0.9 % (0.1-12.0); Hematocrit 27.9 % (42.0-52.0); Lymphocytes # 1.5 K/mm3 (0.7-4.5); Lymphocytes % 4.1 % (10-50); Mean Corpuscular HGB Conc 32.3 g/dL (31.8-35.4); Mean Corpuscular Volume 89.5 fl (80-94); Mean Platelet Volume 13.1 fl (7.4-10.4); Monocytes # 0.8 K/mm3 (0.1-1.0); Monocytes % 2.3 % (1.7-9.3); Neutrophils # 32.2 K/mm3 (1.8-7.8); Neutrophils % 91.5 % (37.0-80.0); Platelet Count 85 K/mm3 (142-424); Red Blood Count 3.11 M/mm3 (4.60-6.20); Red Cell Distribution Width 16.6 % (11.5-17.5); White Blood Count 35.2 K/mm3 (4.8-10.8)
[2019-09-24 09:57] LABS: Anion Gap 14.8 mEq/L (5-15); Calcium 7.3 mg/dL (8.5-10.1)
--- NOTE | 2019-09-24 10:05 | Pharmacy Consult Notes ---
[facility] Pharmacy VTE Monitoring - Patient Demographics Admission date: 09/24/19 Report Date: 09/24/19 Time: 10:05 Allergies/Adverse Reactions: Patient Allergies No Known Allergies Allergy (Verified 09/24/19 06:11) Height: 1.65 m Weight: 160.7 kg Patient Problems: Current Active Problems Atrial flutter (Acute) Gastrointestinal bleeding, upper (Acute) Blood loss anemia (Acute) Hemorrhagic shock (Acute) - VTE Risk Labs: VTE Related Lab Results Hgb 9.0 g/dL (14.1-18.0) L 09/24/19 09:30 Hct 27.9 % (42.0-52.0) L 09/24/19 09:30 Plt Count 85 K/mm3 (142-424) L D 09/24/19 09:30 BUN 28 mg/dL (7-18) H D 09/24/19 09:30 Creatinine 0.57 mg/dL (0.70-1.30) L D 09/24/19 09:30 Estimated Creat Clear 120 mL/min (50-200) 09/24/19 09:30 Was VTE Risk Assessment Performed: Yes VTE Score: 4 VTE Risk Level: Low Risk Clinical Trial Participant: No - Prophylaxis VTE Prophylaxis Ordered?: Yes Types of VTE Prophylaxis: TEDS Knee High
[2019-09-24 10:21] LABS: Lymphocytes % 5 % (10-50); Monocytes % 2 % (2-9); Myelocytes % 2 (0-1); Neutrophils % 91 % (42-76); Total Cells Counted 100
[2019-09-24 10:22] LABS: Hypochromasia 1+
--- NOTE | 2019-09-25 09:33 | Progress Note ---
Internal Medicine - PN: Subj *Date: 09/25/19 *Time: 09:31 Interval history: pt sitting up in bed.denies abd pain or discomfort o2 in place pt asking for something to eat Exam Vital signs and Labs for Last 24 Hours: Temp Pulse Resp BP Pulse Ox 98.0 F 90 21 105/59 L 89 L 09/25/19 07:44 09/25/19 08:00 09/25/19 07:44 09/25/19 07:53 09/25/19 07:50 Laboratory Results - last 24 hr 09/24/19 09:30: WBC 35.2 H*, RBC 3.11 L, Hgb 9.0 L, Hct 27.9 L, MCV 89.5, MCH 28.9, MCHC 32.3, RDW 16.6, Plt Count 85 L D, MPV 13.1 H, Neut % (Auto) 91.5 H, Lymph % (Auto) 4.1 L, [place] % (Auto) 2.3, Eos % (Auto) 0.9, Baso % (Auto) 1.2, Ne ut # (Auto) 32.2 H, Lymph # (Auto) 1.5, [place] # (Auto) 0.8, Eos # (Auto) 0.3, Baso # (Auto) 0.4 H, Total Counted 100, Neutrophils % (Manual) 91 H, Lymphocytes % (Manual) 5 L, Monocytes % (Manual) 2, Myelocytes % 2 H, Platelet Estimate Moderate decrease, Hypochromasia 1+ 09/24/19 09:30: Sodium 140, Potassium 4.8, Chloride 110 H, Carbon Dioxide 20 L D , Anion Gap 14.8, BUN 28 H D, Creatinine 0.57 L D, Estimated Creat Clear 120, Estimated GFR 146, Est GFR ( Amer) 176 D, Glucose 73 L D, Calcium 7.3 L I & O for Last 24 hours: Intake & Output 09/22/19 09/23/19 09/24/19 09/25/19 11:59 11:59 11:59 11:59 Intake Total 1850 / 1850 1320 / 1320 Output Total 1700 / 1700 800 / 800 Balance 150 / 150 520 / 520 Weight 170 lb 160 lb 163 lb 9 oz - Constitutional no acute distress - *Routine HEENT Exam Head: Present: normocephalic Eye: Present: PERRL ENT: Present: mucous membranes moist - *Routine Neck Exam Present: supple. Absent: lymphadenopathy - *Routine Respiratory Exam Present: decreased breath sounds, rhonchi, wheezes - *Routine Cardiovascular Exam Present: RRR - *Routine Abdominal Exam Present: soft, normoactive bowel sounds. Absent: tenderness, distended, guarding, firm - *Routine Extremities Exam Present: full ROM. Absent: cyanosis, clubbing, edema - *Routine Skin Exam Present: intact - *Routine Neurological Exam Present: alert, oriented X3 - Routine Psychiatric Exam Present: normal affect Assessment and Plan (1) Atrial flutter Current visit: Yes Status: Acute Qualifiers: Atrial flutter type: unspecified Qualified Code(s): I48.92 - Unspecified atrial flutter Category: Medical Code(s): I48.92 - Unspecified atrial flutter (2) Blood loss anemia Current visit: Yes Status: Acute Category: Medical Code(s): D50.0 - Iron deficiency anemia secondary to blood loss (chronic) (3) Gastrointestinal bleeding, upper Current visit: Yes Status: Acute Category: Medical Code(s): K92.2 - Gastrointestinal hemorrhage, unspecified (4) Hemorrhagic shock Current visit: Yes Status: Acute Category: Medical Code(s): R57.8 - Other shock - Assessment and plan all Dx Assessment and Plan for all problems:: rounded with tawana all orders per tawana cardiology consult peripheral smear- elevated wbc dc jesus try to wean o2 oob
[2019-09-25 10:51] LABS: Basophils # 0.1 K/mm3 (0-0.2); Basophils % 0.3 % (0.1-2.0); Eosinophils # 0.3 K/mm3 (0.0-0.4); Eosinophils % 0.9 % (0.1-12.0); Hemoglobin 8.4 g/dL (14.1-18.0); Lymphocytes # 0.8 K/mm3 (0.7-4.5); Lymphocytes % 2.6 % (10-50); Mean Corpuscular HGB Conc 31.1 g/dL (31.8-35.4); Mean Corpuscular Volume 88.3 fl (80-94); Mean Platelet Volume 11.6 fl (7.4-10.4); Monocytes # 0.4 K/mm3 (0.1-1.0); Monocytes % 1.4 % (1.7-9.3); Neutrophils # 29.2 K/mm3 (1.8-7.8); Neutrophils % 94.8 % (37.0-80.0); Platelet Count 89 K/mm3 (142-424); Red Blood Count 3.06 M/mm3 (4.60-6.20); Red Cell Distribution Width 16.2 % (11.5-17.5); White Blood Count 30.9 K/mm3 (4.8-10.8)
[2019-09-25 11:22] LABS: Calcium 7.5 mg/dL (8.5-10.1)
[2019-09-25 14:20] LABS: Lymphocytes % 4 % (10-50); Monocytes % 3 % (2-9); Neutrophils % 93 % (42-76); RBC Morphology Normal; Total Cells Counted 100
--- NOTE | 2019-09-26 09:08 | Progress Note ---
Internal Medicine - PN: Subj *Date: 09/26/19 *Time: 09:05 Interval history: pt up in chair voiced no c/o Exam Vital signs and Labs for Last 24 Hours: Temp Pulse Resp BP Pulse Ox 98.4 F 94 H 18 112/53 L 91 L 09/26/19 08:00 09/26/19 08:00 09/26/19 08:00 09/26/19 08:00 09/26/19 08:00 Laboratory Results - last 24 hr 09/25/19 10:30: WBC 30.9 H*, RBC 3.06 L, Hgb 8.4 L, Hct 27.0 L, MCV 88.3, MCH 27.5, MCHC 31.1 L, RDW 16.2, Plt Count 89 L, MPV 11.6 H, Neut % (Auto) 94.8 H, Lymph % (Auto) 2.6 L, [place] % (Auto) 1.4 L, Eos % (Auto) 0.9, Baso % (Auto) 0.3, Neut # (Auto) 29.2 H, Lymph # (Auto) 0.8, [place] # (Auto) 0.4, Eos # (Auto) 0.3, Baso # (Auto) 0.1, Total Counted 100, Neutrophils % (Manual) 93 H, Lymphocytes % (Manual) 4 L, Monocytes % (Manual) 3, Platelet Estimate Marked decrease, RBC Morphology Normal 09/25/19 10:30: Sodium 139, Potassium 4.0, Chloride 106, Carbon Dioxide 26 D, Anion Gap 11.0, BUN 13 D, Creatinine 0.55 L, Estimated Creat Clear 150, Estimated GFR 152, Est GFR ( Amer) 184, Glucose 77, Calcium 7.5 L I & O for Last 24 hours: Intake & Output 09/23/19 09/24/19 09/25/19 09/26/19 11:59 11:59 11:59 11:59 Intake Total 1850 / 1850 1320 / 1320 3429 / 3429 Output Total 1700 / 1700 800 / 800 800 / 800 Balance 150 / 150 520 / 520 2629 / 2629 Weight 170 lb 160 lb 163 lb 9 oz 168 lb 3 oz Microbiology Reports for the Last 24 Hours: Microbiology 09/23/19 14:50 Blood Blood Culture - Preliminary NO GROWTH AFTER 48 HOURS 09/23/19 14:50 Blood Blood Culture - Preliminary NO GROWTH AFTER 48 HOURS - Constitutional no acute distress, chronically ill appearing - *Routine HEENT Exam Head: Present: normocephalic Eye: Present: PERRL ENT: Present: mucous membranes moist - *Routine Neck Exam Present: supple. Absent: lymphadenopathy - *Routine Respiratory Exam Present: decreased breath sounds, rhonchi, wheezes - *Routine Cardiovascular Exam Present: RRR - *Routine Abdominal Exam Present: soft, normoactive bowel sounds. Absent: tenderness - *Routine Extremities Exam Present: full ROM. Absent: cyanosis, clubbing, edema - *Routine Skin Exam Present: warm. Absent: rash - *Routine Neurological Exam Present: alert, oriented X3 - Routine Psychiatric Exam Present: normal affect Assessment and Plan (1) Atrial flutter Current visit: Yes Status: Acute Qualifiers: Atrial flutter type: unspecified Qualified Code(s): I48.92 - Unspecified atrial flutter Category: Medical Code(s): I48.92 - Unspecified atrial flutter (2) Blood loss anemia Current visit: Yes Status: Acute Category: Medical Code(s): D50.0 - Iron deficiency anemia secondary to blood loss (chronic) (3) Gastrointestinal bleeding, upper Current visit: Yes Status: Acute Category: Medical Code(s): K92.2 - Gastrointestinal hemorrhage, unspecified (4) Hemorrhagic shock Current visit: Yes Status: Acute Category: Medical Code(s): R57.8 - Other shock (5) Anemia associated with acute blood loss Current visit: Yes Status: Acute Category: Medical Code(s): D62 - Acute posthemorrhagic anemia (6) Anemia Current visit: No Status: Acute Qualifiers: Anemia type: unspecified type Qualified Code(s): D64.9 - Anemia, unspecified Category: Medical Code(s): D64.9 - Anemia, unspecified (7) COPD exacerbation Current visit: Yes Status: Acute Category: Medical Code(s): J44.1 - Chronic obstructive pulmonary disease with (acute) exacerbation (8) Leukocytosis Current visit: Yes Status: Acute Category: Medical Code(s): D72.829 - Elevated white blood cell count, unspecified - Assessment and plan all Dx Assessment and Plan for all problems:: rounded with dr gilliam all orders per tawana haque and cardiology to eval
[2019-09-26 09:18] LABS: Basophils # 0.1 K/mm3 (0-0.2); Basophils % 0.2 % (0.1-2.0); Eosinophils # 0.2 K/mm3 (0.0-0.4); Eosinophils % 0.9 % (0.1-12.0); Hematocrit 26.9 % (42.0-52.0); Hemoglobin 8.2 g/dL (14.1-18.0); Lymphocytes # 0.6 K/mm3 (0.7-4.5); Lymphocytes % 2.6 % (10-50); Mean Corpuscular HGB Conc 30.6 g/dL (31.8-35.4); Mean Corpuscular Volume 87.7 fl (80-94); Mean Platelet Volume 12.4 fl (7.4-10.4); Monocytes # 0.5 K/mm3 (0.1-1.0); Monocytes % 2.3 % (1.7-9.3); Neutrophils # 19.7 K/mm3 (1.8-7.8); Platelet Count 73 K/mm3 (142-424); Red Blood Count 3.06 M/mm3 (4.60-6.20); Red Cell Distribution Width 15.8 % (11.5-17.5); White Blood Count 20.9 K/mm3 (4.8-10.8)
[2019-09-26 09:33] LABS: Hypochromasia 1+; Lymphocytes % 3 % (10-50); Monocytes % 2 % (2-9); Neutrophils % 95 % (42-76); Nucleated Red Blood Cells 1; Total Cells Counted 100
[2019-09-26 09:34] LABS: Anisocytosis 1+
[2019-09-26 09:35] LABS: Anion Gap 11.5 mEq/L (5-15); Calcium 7.6 mg/dL (8.5-10.1)
--- NOTE | 2019-09-26 10:29 | Procedure Note ---
[facility] Procedure Note Procedure Note:: Upper Endoscopy Procedure Report: Esophagogastroduodenoscopy with cold biopsies Endoscopost: Tio Hunter II, MD Referring Physician: Jan Pepper MD Date of Procedure: September 26, 2019 Equipment: Olympus GIF 180 standard upper endoscope Sedation: MAC sedation Indications: Mr. Banks is a 59-year-old gentleman who has recently had upper GI bleed. He was initially transferred to the [facility] and had an upper endoscopy last Sunday. He was told that he had an ulcer that rupt ured. The patient has had melanotic stools. He initially had hematemesis. He reports no alcohol. He also reports no significant abdominal pain. He left the hospital in [place] AGAINST MEDICAL ADVICE. He did come to [facility] and was admitted. His hemoglobin and hematocrit were 7.0 and 23.0 on 09/23. The patient has received 4 units of PRBCs. His hemoglobin and hematocr it did improve to 10.0 and 32.2. Procedure: Prior to the procedure, a history and physical exam was performed, and patient's medications and allergies were reviewed. The risks, benefits and alternatives of the sedation and procedure were discussed with the patient. All questions were answered and informed consent was obtained. The patient was brought to the procedure room. Patient identification and proposed procedure were verified by the physician and the nurse. The patient was placed in a left lateral decubitus position and the scope was passed under direct vision. Throughout the pro cedure, the patient's blood pressure, pulse, and oxygen saturations were monitored continuously. The upper GI endoscopy was accomplished without difficulty. The patient tolerated the procedure well. Findings: The scope was passed directly into the upper esophagus and advanced to the third portion of the duodenum. The post bulbar duodenum was normal. The bulb did have some peptic duodenitis but no ulcers. The scope was withdrawn through a normal pylorus into the stomach. There was some pyloric channel edema but it was widely patent. Within the stomach there was gastropathy of the antru m that was linear. There was also a very superficial ulceration along the posterior wall of the stomach in the antrum. There was some chronic gastritis. Cold biopsies were obtained from the antrum and lesser curvature. The remainder of the body and fundus were normal. Upon retroflexion there was a 1-2 cm hiatal hernia. The scope was then withdrawn into the esophagus. There was evidence of short segment Razo's esophagus ([place] classification C2M3) and biopsies were obtained. There was no evidence of reflux esophagitis or stricturing. The remainder of the esophageal mucosa was normal. Impression: 1. Superficial gastric ulceration (probable NSAIDs) with some chronic gastritis and peptic duodenitis 2. Short segment Razo's esophagus ([place]len classification C2M3) with small hi atal hernia (1 to 2 cm) Plan: I will follow-up the biopsies. The patient does not have any evidence of active bleeding. I would continue PPI therapy and avoidance of NSAIDs.
--- NOTE | 2019-09-26 11:02 | Progress Note ---
[facility] Anesthesia Checklist - Structural Data Admitted From: Inpatient Planned Operative Procedure/s: egd Consent for Planned Operative Procedure(s) Verified: Yes - Additional verifications Anesthesia Reactions: No - Airway Assessment C-Spine Mobility Assessed: Yes TMJ Mobility Assessed: Yes Dentition: Poor Dentition - Neurological Assessment Level of Consciousness: Awake, Alert, Appropriate - Anesthesia Plan Anesthesia Risk discussed: Yes Anesthesia Plan: Verified ASA Class: III Anesthesia Type: MAC [facility] History I have reviewed the patient's past medical history: Yes Medical History: Reports:: Chronic Obstructive Pulmonary Disease (COPD), Congenital Heart Disease, Hyperlipidemia, Hypertension, Lung Disease, Myocardial Infarction, Palpitations Denies:: Diabetes Mellitus Type 1, Diabetes Mellitus Type 2, Internal Pacemaker, MRSA, Seizures *Have you ever received a pneumonia vaccine?: No *Have you received a flu vaccine this season?: No Anesthesia experience/problems:: none Other Surgeries: Yes: Cardiac Catheterization, Colonoscopy, Other (back surgery). No: Pacemaker Amputation: No Fractures: No - *Social History Educational Level: Attended High School Smoking Status: Current every day smoker Tobacco Type: cigarettes # Packs/Day (cigarettes): 1 Alcohol Intake: never Substance Use Type: denies use *Occupational Status:: retired Housing: house Household Members: spouse *Travel in the last 8 weeks: None Family Hx:: Coronary Artery Disease, Heart Attack, Cancer
--- NOTE | 2019-09-26 11:03 | Progress Note ---
[facility] Anesthesia Record Part II Discharge Time: 10:30 Destination: [facility] PACU nurse assessment reviewed?: Yes Patient Condition:: Good Anesthesia Complications:: None Swallowing reflex intact?: Yes Cyanosis?: No Blood Pressure: 85/65 Pulse Rate: 112 Temperature: 100 F Mental Status: Lethargic Pain level:: 0 Nausea and/or vomitting:: None Intake, IV Amount: 200
--- NOTE | 2019-09-26 11:21 | Consult Report ---
History of Present Illness Consult date: 09/26/19 Requesting physician: Jan Pepper Consult reason: atrial fibrillation Chief complaint: GI bleed Additional Medical History:: 1. mild to moderate, non-occlusive CAD 2. HTN 3. HLD 4. COPD 5. Afib/flutter [facility] 08/2018 shows: 1. The left main artery short and normal 2. The left anterior descending artery is proximally normal with mild mid vessel 10-20% stenoses 3. The circumflex artery is large dominant gives rise to a moderate sized ramus intermedius which has a mid vessel 40-50% stenosis. The circumflex artery itself has mild distal 10-20% stenoses in the terminal obtuse marginal artery 4. The right coronary artery is a small vestigial vessel and normal 5. The ALEXANDRE ventriculogram reveals normal 65% 6. The left ventricular end-diastolic pressure 20 mmHg PLAN: 1. Medical management for angina 2. Risk factor modification Echo from 08/2018 shows: 1. Technically difficult study because of the patient's factor and poor acoustic windows 2. Mildly enlarged left atrium, normal left ventricular size, mild concentric left ventricular hypertrophy, visually estimated ejection fraction 50% with no wall motion abnormality described above, grade 1 diastolic dysfunction seen with tissue Doppler evidence of raised left atrial pressure. 3. Mild mitral and tricuspid regurgitation 4. No significant pericardial effusion noted. History of present illness: This is a 59-year-old gentleman who was admitted to the hospital for a GI bleed. The patient states that he has been having issues with bleeding for quite some time now. It just continues to worsen. The patient was being worked up for his GI bleed and received a nebulizer while in the emergency department. The patient states that after receiving the nebulizer his heart began to race and he got short of breath. The patient said at that point his heart went out of rhythm and he started having palpitations of the heart. He was converted in the emergency department to sinus rhythm and has remained in sinus rhythm since that time. He is in sinus rhythm this morning with a heart rate around 100 bpm. He is on no antiarrhythmics or any medications for rate control. He does have a history of mild to moderate coronary artery disease. His ejection fraction was 50%. He denies any chest pain or pressure. He denies any shortness of breath a t this time but states he is only short of breath when they give him nebulizer treatments. He denies any fevers, chills, nausea, vomiting, diarrhea, PND or orthopnea. [facility] History I have reviewed the patient's past medical history: Yes Medical History: Reports:: Chronic Obstructive Pulmonary Disease (COPD), Congenital Heart Disease, Hyperlipidemia, Hypertension, Lung Disease, Myocardial Infarction, Palpitations Denies:: Diabetes Mellitus Type 1, Diabetes Mellitus Type 2, Internal Pacemaker, MRSA, Seizures *Have you ever received a pneumonia vaccine?: No *Have you received a flu vaccine this season?: No Anesthesia experience/problems:: none Other Surgeries: Yes: Cardiac Catheterization, Colonoscopy, Other (back surgery). No: Pacemaker Amputation: No Fractures: No - *Social History Educational Level: Attended High School Smoking Status: Current every day smoker Tobacco Type: cigarettes # Packs/Day (cigarettes): 1 Alcohol Intake: never Substance Use Type: denies use *Occupational Status:: retired Housing: house Household Members: spouse *Travel in the last 8 weeks: None Family Hx:: Coronary Artery Disease, Heart Attack, Cancer Meds Home Medications Medication Instructions Recorded Confirmed Type Aspirin [Aspirin 325mg Tab] 325 mg PO DAILY 03/11/18 09/24/19 History bisoprolol 5 1 tab PO DAILY #90 tab 07/28/19 09/24/19 Rx mg-hydrochlorothiazide 6.25 mg tablet albuterol sulfate 90 mcg/actuation 2 puff INHALATION Q6H PRN #18 g 08/14/19 09/24/19 Rx aerosol inhaler Benazepril HCl 5 mg PO DAILY 09/24/19 09/24/19 History Budesonide/Formoterol Fumarate 2 puffs IH BID 09/24/19 09/24/19 History [Symbicort 160-4.5 Mcg Inhaler] Allergies Allergy/AdvReac Type Severity Reaction Status Date / Time No Known Allergies Allergy Verified 09/24/19 06:11 Review of Systems - Review of Systems Review of systems:: pertinent systems reviewed and negative unless documented below - *Cardiovascular Reports shortness of breath, Reports irregular heart rhythm, Reports rapid, pounding, or irregular heartbeat - *Gastrointestinal Reports black, tarry stools - *Neurologic Denies confusion, Denies seizure-like activity Exam Vital signs and Labs for Last 24 Hours: Temp Pulse Resp BP Pulse Ox 100 F H 112 H 18 85/65 L 95 09/26/19 11:03 09/26/19 11:03 09/26/19 10:30 09/26/19 11:03 09/26/19 10:30 Laboratory Results - last 24 hr 09/25/19 10:30: Total Counted 100, Neutrophils % (Manual) 93 H, Lymphocytes % (Manual) 4 L, Monocytes % (Manual) 3, Platelet Estimate Marked decrease, RBC Morphology Normal 09/25/19 10:30: Sodium 139, Potassium 4.0, Chloride 106, Carbon Dioxide 26 D, Anion Gap 11.0, BUN 13 D, Creatinine 0.55 L, Estimated Creat Clear 150, Estimated GFR 152, Est GFR ( Amer) 184, Glucose 77, Calcium 7.5 L 09/26/19 09:07: WBC 20.9 H* D, RBC 3.06 L, Hgb 8.2 L, Hct 26.9 L, MCV 87.7, MCH 26.8 L, MCHC 30.6 L, RDW 15.8, Plt Count 73 L, MPV 12.4 H, Neut % (Auto) 94.0 H, Lymph % (Auto) 2.6 L, [place] % (Auto) 2.3, Eos % (Auto) 0.9, Baso % (Auto) 0.2, Neut # (Auto) 19.7 H, Lymph # (Auto) 0.6 L, [place] # (Auto) 0.5, Eos # (Auto) 0.2, Baso # (Auto) 0.1, Total Counted 100, Neutrophils % (Manual) 95 H, Lymphocytes % (Manual) 3 L, Monocytes % (Manual) 2, Nucleated RBCs 1, Platelet Estimate Slight decrease, Hypochromasia 1+, Anisocytosis 1+ 09/26/19 09:07: Sodium 138, Potassium 3.5, Chloride 104, Carbon Dioxide 26, Anion Gap 11.5, BUN 7 D, Creatinine 0.51 L, Estimated Creat Clear 166, Estimated GFR 166, Est GFR ( Amer) 201, Glucose 109 H D, Calcium 7.6 L I & O for Last 24 hours: Intake & Output 09/23/19 09/24/19 09/25/19 09/26/19 23:59 23:59 23:59 23:59 Intake Total 250 / 250 1600 / 1600 3512 / 3512 1437 / 1437 Output Total 300 / 300 1400 / 1400 1400 / 1400 200 / 200 Balance -50 / -50 200 / 200 2112 / 2112 1237 / 1237 Weight 170 lb 160 lb 163 lb 9 oz 168 lb 3 oz Microbiology Reports for the Last 24 Hours: Microbiology 09/23/19 14:50 Blood Blood Culture - Preliminary NO GROWTH AFTER 48 HOURS 09/23/19 14:50 Blood Blood Culture - Preliminary NO GROWTH AFTER 48 HOURS Narrative: Telemetry strip shows sinus rhythm with a rate of 100 - Constitutional no acute distress, average body habitus - *Routine HEENT Exam Head: Present: normocephalic, atraumatic Eye: Present: EOMI, PERRL ENT: Present: mucous membranes moist - *Routine Neck Exam Present: supple, full ROM, normal carotid upstroke. Absent: JVD, carotid bruit, lymphadenopathy - *Routine Respiratory Exam Present: decreased breath sounds, wheezes (Expiratory wheezing noted throughout) - *Routine Cardiovascular Exam Present: RRR, Normal S1, Normal S2, tachycardia. Absent: murmur - *Routine Abdominal Exam Present: soft, normoactive bowel sounds. Absent: tenderness, distended - *Routine Extremities Exam Present: full ROM, pulses intact, normal capillary refill. Absent: cyanosis, clubbing, edema - *Routine Skin Exam Present: intact, warm. Absent: erythema, rash - *Routine Neurological Exam Present: alert, oriented X3, CN II-XII intact. Absent: sensory deficit, motor deficit - Routine Psychiatric Exam Present: normal affect, normal thought process - Detailed Eye Exam Eyelids: Left normal inspection Assessment and Plan (1) Atrial flutter Current visit: Yes Status: Acute Qualifiers: Atrial flutter type: unspecified Qualified Code(s): I48.92 - Unspecified atrial flutter Category: Medical Code(s): I48.92 - Unspecified atrial flutter (2) Blood loss anemia Current visit: Yes Status: Acute Category: Medical Code(s): D50.0 - Iron deficiency anemia secondary to blood loss (chronic) (3) Gastrointestinal bleeding, upper Current visit: Yes Status: Acute Category: Medical Code(s): K92.2 - Gastrointestinal hemorrhage, unspecified (4) Anemia Current visit: No Status: Acute Qualifiers: Anemia type: unspecified type Qualified Code(s): D64.9 - Anemia, unspecified Category: Medical Code(s): D64.9 - Anemia, unspecified (5) COPD exacerbation Current visit: Yes Status: Acute Category: Medical Code(s): J44.1 - Chronic obstructive pulmonary disease with (acute) exacerbation (6) Leukocytosis Current visit: Yes Status: Acute Category: Medical Code(s): D72.829 - Elevated white blood cell count, unspecified (7) CAD (coronary artery disease) Current visit: Yes Status: Chronic Category: Medical Code(s): I25.10 - Atherosclerotic heart disease of [place] coronary artery without angina pectoris (8) HLD (hyperlipidemia) Current visit: Yes Status: Chronic Category: Medical Code(s): E78.5 - Hyperlipidemia, unspecified (9) Hypertension Current visit: No Status: Chronic Qualifiers: Hypertension type: essential hypertension Qualified Code(s): I10 - Esse ntial (primary) hypertension Category: Medical Code(s): I10 - Essential (primary) hypertension (10) Tachycardia Current visit: Yes Status: Acute Category: Medical Code(s): R00.0 - Tachycardia, unspecified - Assessment and plan all Dx Assessment and Plan for all problems:: Plan: 1. The patient was admitted to the hospital with complaints of a GI bleed. The patient was having acute blood loss anemia. He did undergo an upper GI this morning and was found to have a superficial gastric ulceration probably from NSAIDs with some chronic gastritis and peptic duodenitis. There is also short segment Razo's esophagus with a small hiatal hernia. There was no evidence of an active bleed and PPI therapy was recommended as well as avoidance of NSAIDs. 2. The patient did go into atrial fibrillation/flutter while in the emergency department. He did undergo cardioversion in the emergency department and converted to normal sinus rhythm. The patient does remain in sinus rhythm at this time but he is tachycardic. We will start him on sotalol 80 mg p.o. twice daily for suppression of the atrial fibrillation/flutter. 3. No anticoagulation at this time due to his GI bleed and anemia as long as he remains in sinus rhythm with sotalol. 4. He does have a history of coronary artery disease which is mild to moderate and nonocclusive. He denies any chest pain or pressure. No plans for invasive cardiac testing at this time. 5. His blood pressure is well controlled. 6. His LDL goal is less than 55. 7. COPD is present and managed by his primary care provider. Will defer. 8. Further recommendations were made pending the patient's response to treatment. Thank you for the opportunity to help participate in the care of this patient.
[2019-09-27 05:24] LABS: Basophils # 0.1 K/mm3 (0-0.2); Basophils % 0.3 % (0.1-2.0); Eosinophils # 0.2 K/mm3 (0.0-0.4); Eosinophils % 0.9 % (0.1-12.0); Hemoglobin 8.1 g/dL (14.1-18.0); Lymphocytes # 0.7 K/mm3 (0.7-4.5); Lymphocytes % 4.1 % (10-50); Mean Corpuscular HGB Conc 29.4 g/dL (31.8-35.4); Mean Corpuscular Volume 87.7 fl (80-94); Mean Platelet Volume 12.9 fl (7.4-10.4); Monocytes # 0.9 K/mm3 (0.1-1.0); Neutrophils # 16.5 K/mm3 (1.8-7.8); Neutrophils % 89.9 % (37.0-80.0); Platelet Count 73 K/mm3 (142-424); Red Blood Count 3.12 M/mm3 (4.60-6.20); Red Cell Distribution Width 16.3 % (11.5-17.5); White Blood Count 18.3 K/mm3 (4.8-10.8)
[2019-09-27 05:28] LABS: Hematocrit 27.4 % (42.0-52.0)
[2019-09-27 05:33] LABS: Anion Gap 9.6 mEq/L (5-15); Calcium 7.7 mg/dL (8.5-10.1)
[2019-09-27 05:51] LABS: Hypochromasia 2+; Lymphocytes % 4 % (10-50); Neutrophils % 94 % (42-76); Total Cells Counted 100
[2019-09-27 05:52] LABS: Stomatocytes 1+
--- NOTE | 2019-09-27 07:15 | Progress Note ---
Internal Medicine - PN: Subj *Date: 09/27/19 *Time: 07:12 Interval history: pt still with resp sx - pt had egd with no acute bleeding - will consider transfusion to aide breathing if continues - discussed breathing treatments with pt - pt was seen by card Exam Vital signs and Labs for Last 24 Hours: Temp Pulse Resp BP Pulse Ox 97.8 F 93 H 20 105/70 L 92 L 09/27/19 04:00 09/27/19 04:00 09/27/19 04:00 09/27/19 04:00 09/27/19 04:00 Laboratory Results - last 24 hr 09/26/19 09:07: WBC 20.9 H* D, RBC 3.06 L, Hgb 8.2 L, Hct 26.9 L, MCV 87.7, MCH 26.8 L, MCHC 30.6 L, RDW 15.8, Plt Count 73 L, MPV 12.4 H, Neut % (Auto) 94.0 H, Lymph % (Auto) 2.6 L, [place] % (Auto) 2.3, Eos % (Auto) 0.9, Baso % (Auto) 0.2, Neut # (Auto) 19.7 H, Lymph # (Auto) 0.6 L, [place] # (Auto) 0.5, Eos # (Auto) 0.2, Baso # (Auto) 0.1, Total Counted 100, Neutrophils % (Manual) 95 H, Lymphocytes % (Manual) 3 L, Monocytes % (Manual) 2, Nucleated RBCs 1, Platelet Estimate Slight decrease, Hypochromasia 1+, Anisocytosis 1+ 09/26/19 09:07: Sodium 138, Potassium 3.5, Chloride 104, Carbon Dioxide 26, Anion Gap 11.5, BUN 7 D, Creatinine 0.51 L, Estimated Creat Clear 166, Estimated GFR 166, Est GFR ( Amer) 201, Glucose 109 H D, Calcium 7.6 L 09/27/19 05:10: WBC 18.3 H, RBC 3.12 L, Hgb 8.1 L, Hct 27.4 L, MCV 87.7, MCH 25.8 L, MCHC 29.4 L, RDW 16.3, Plt Count 73 L, MPV 12.9 H, Neut % (Auto) 89.9 H, Lymph % (Auto) 4.1 L, [place] % (Auto) 5.0, Eos % (Auto) 0.9, Baso % (Auto) 0.3, Neut # (Auto) 16.5 H, Lymph # (Auto) 0.7, [place] # (Auto) 0.9, Eos # (Auto) 0.2, Baso # (Auto) 0.1, Total Counted 100, Neutrophils % (Manual) 94 H, Band Neutrophils % 2.0, Lymphocytes % (Manual) 4 L, Platelet Estimate Moderate decrease, Hypochromasia 2+, Poikilocytosis 1+, Stomatocytes 1+ 09/27/19 05:10: Sodium 139, Potassium 3.6, Chloride 105, Carbon Dioxide 28, Anion Gap 9.6, BUN 5 L D, Creatinine 0.45 L, Estimated Creat Clear 189, Estimated GFR 192, Est GFR ( Amer) 232, Glucose 89, Calcium 7.7 L I & O for Last 24 hours: Intake & Output 09/24/19 09/25/19 09/26/19 09/27/19 11:59 11:59 11:59 11:59 Intake Total 1850 / 1850 1320 / 1320 4229 / 4229 2615 / 2615 Output Total 1700 / 1700 800 / 800 800 / 800 1070 / 1070 Balance 150 / 150 520 / 520 3429 / 3429 1545 / 1545 Weight 160 lb 163 lb 9 oz 168 lb 3 oz 168 lb 8 oz - Constitutional no acute distress - *Routine HEENT Exam Head: Present: normocephalic Eye: Present: EOMI, PERRL ENT: Present: mucous membranes dry - *Routine Neck Exam Absent: JVD - *Routine Respiratory Exam Present: prolonged expiratory phase, wheezes - *Routine Cardiovascular Exam Present: RRR, murmur - *Routine Abdominal Exam Present: soft - *Routine Extremities Exam Absent: calf tenderness - *Routine Skin Exam Present: intact - *Routine Neurological Exam Present: alert, oriented X3, CN II-XII intact - Routine Psychiatric Exam Present: normal affect Assessment and Plan (1) Atrial flutter Current visit: Yes Status: Acute Qualifiers: Atrial flutter type: unspecified Qualified Code(s): I48.92 - Unspecified atrial flutter Category: Medical Code(s): I48.92 - Unspecified atrial flutter (2) Blood loss anemia Current visit: Yes Status: Acute Category: Medical Code(s): D50.0 - Iron deficiency anemia secondary to blood loss (chronic) (3) Gastrointestinal bleeding, upper Current visit: Yes Status: Acute Category: Medical Code(s): K92.2 - Gastrointestinal hemorrhage, unspecified (4) Anemia Current visit: No Status: Acute Qualifiers: Anemia type: unspecified type Qualified Code(s): D64.9 - Anemia, unspecified Category: Medical Code(s): D64.9 - Anemia, unspecified (5) COPD exacerbation Current visit: Yes Status: Acute Category: Medical Code(s): J44.1 - Chronic obstructive pulmonary disease with (acute) exacerbation (6) Leukocytosis Current visit: Yes Status: Acute Category: Medical Code(s): D72.829 - Elevated white blood cell count, unspecified (7) CAD (coronary artery disease) Current visit: Yes Status: Chronic Category: Medical Code(s): I25.10 - Atherosclerotic heart disease of [place] coronary artery without angina pectoris (8) HLD (hyperlipidemia) Current visit: Yes Status: Chronic Category: Medical Code(s): E78.5 - Hyperlipidemia, unspecified (9) Hypertension Current visit: No Status: Chronic Qualifiers: Hypertension type: essential hypertension Qualified Code(s): I10 - Essential (primary) hypertension Category: Medical Code(s): I10 - Essential (primary) hypertension (10) Tachycardia Current visit: Yes Status: Acute Category: Medical Code(s): R00.0 - Tachycardia, unspecified (11) Razo esophagus Current visit: Yes Status: Acute Qualifiers: Razo's esophagus type: with dysplasia of unspecified degree Qualified Code(s): K22.719 - Razo's esophagus with dysplasia, unspecified Category: Medical Code(s): K22.70 - Razo's esophagus without dysplasia (12) Acute gastritis Current visit: Yes Status: Acute Qualifiers: Gastritis type: superficial Gastritis bleeding: without bleeding Qualified Code(s): K29.00 - Acute gastritis without bleeding Category: Medical Code(s): K29.00 - Acute gastritis without bleeding (13) Duodenitis Current visit: Yes Status: Acute Category: Medical Code(s): K29.80 - Duodenitis without bleeding
--- NOTE | 2019-09-28 00:42 | Discharge Summary ---
General - General Admission date:: 09/24/19 Discharge date: 09/28/19 HPI HPI: this wm has complicated course of presenting to [facility] about a week ago with hypotensive gi bleeding requiring transfer to and blood transfusions rought in by ambulance. Patient complains of pain across her shoulder blades in his posterior thoracic area that started 2 hours ago. Associated with some shortness of breath, diaphoresis, lightheadedness, but no nausea or vomiting. Says that he had the same symptoms many years ago and they thought he had had a heart attack. He said he did not receive any stents or bypass surgery. Patient was seen in this emergency department 6 days ago and had a GI bleed with hypotension, leukocytosis, and anemia. He was transferred to [facility]. He says he signed himself out on Sunday, 3 days ago. He says he signed out because he laid there for 4 days and they did not give him anything to eat. He says that he did have an upper endoscopy and they discovered an old ulcer that "broke loose". He says that since going home he did notice some blackish stool this morning. He has not been vomiting blood anymore, as he had been when he was seen here last week. He is not a drinker. He says as far as he knows, he was not given any prescriptions at discharge and was told to take his previous medications at the same dosage as before. States he is only on Bisoprol, Benazopril and aspirin. In ER he had complicated course - cardioversion performed with intravenous sedation of Versed. 4 mg of Versed given. Patient cardioverted with 50 J synchronized. Sinus rhythm obtained. Blood pressure remains hypotensive, 60s. IV fluid boluses continued. Patient tolerated procedure well without complications. Hospital Course Hospital Course: Patient was admitted due to his A. fib, anemia, concern for continued GI bleed. Surgery, cardiology, gastroenterology were all consulted. Ultimately gastroenterology performed an EGD, please see note for full details. No active bleeding at this time but had recommendations for medical optimization. He was transfused during admission and monitored for any further bleeding. Diet was gradually advanced. Tolerated 2 days of octreotide. Transition to meds per med rec in this note for discharge home. Remained hemodynamically stable with no further episodes. Tolerating regular diet. Denies any abdominal pain, chest pain, shortness of breath, nausea or vomiting. No melenic stools or hematemesis. Medically stable for discharge home with close follow-up in the outpatient setting Objective Vital signs: Temp Pulse Resp BP Pulse Ox 97.6 F 75 22 101/62 L 92 L 09/28/19 00:00 09/28/19 00:00 09/28/19 00:00 09/28/19 00:00 09/28/19 00:00 Narrative: - Constitutional no acute distress - *Routine HEENT Exam Head: Present: normocephalic Eye: Present: EOMI, PERRL ENT: Present: mucous membranes dry - *Routine Neck Exam Absent: JVD - *Routine Respiratory Exam Present: prolonged expiratory phase, wheezes - *Routine Cardiovascular Exam Present: RRR, murmur - *Routine Abdominal Exam Present: soft - *Routine Extremities Exam Absent: calf tenderness - *Routine Skin Exam Present: intact - *Routine Neurological Exam Present: alert, oriented X3, CN II-XII intact - Routine Psychiatric Exam Present: normal affect Results Labs on day of discharge: Labs from last 24 hours 09/27/19 09/27/19 05:10 05:10 WBC 18.3 H RBC 3.12 L Hgb 8.1 L Hct 27.4 L MCV 87.7 MCH 25.8 L MCHC 29.4 L RDW 16.3 Plt Count 73 L MPV 12.9 H Neut % (Auto) 89.9 H Lymph % (Auto) 4.1 L [place] % (Auto) 5.0 Eos % (Auto) 0.9 Baso % (Auto) 0.3 Neut # (Auto) 16.5 H Lymph # (Auto) 0.7 [place] # (Auto) 0.9 Eos # (Auto) 0.2 Baso # (Auto) 0.1 Total Counted 100 Neutrophils % (Manual) 94 H Band Neutrophils % 2.0 Lymphocytes % (Manual) 4 L Platelet Estimate Moderate decrease Hypochromasia 2+ Poikilocytosis 1+ Stomatocytes 1+ Sodium 139 Potassium 3.6 Chloride 105 Carbon Dioxide 28 Anion Gap 9.6 BUN 5 L D Creatinine 0.45 L Estimated Creat Clear 189 Estimated GFR 192 Est GFR ( Amer) 232 Glucose 89 Calcium 7.7 L Preliminary micro results at discharge 09/23/19 14:50 Blood Culture - Preliminary Blood NO GROWTH AFTER 48 HOURS 09/23/19 14:50 Blood Culture - Preliminary Blood NO GROWTH AFTER 48 HOURS DS: Diagnosis - Discharge Diagnosis (1) Atrial flutter Status: Resolved (2) Blood loss anemia Status: Acute (3) Gastrointestinal bleeding, upper Status: Resolved (4) Anemia Status: Acute (5) COPD exacerbation Status: Acute (6) Leukocytosis Status: Acute (7) CAD (coronary artery disease) Status: Chronic (8) HLD (hyperlipidemia) Status: Chronic (9) Hypertension Status: Chronic (10) Tachycardia Status: Resolved (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 Room air oxygen saturation of 84% at rest on day of discharge. Responded well to 2 L of oxygen with oxygen saturations 93-95. O2 ordered from [facility] for continuous use Discharge Plan - Patient Discharge Instructions ACTIVITY: Continue current activity (pt stable for transfer) DIET: continue same diet Patient Instructions: Blood Transfusion, Anemia, Atrial Flutter, DI for Atrial Flutter, DI for Blood Transfusion, Gastrointestinal Bleeding - Follow up Plan Follow up with: Jan Pepper MD [Primary Care Provider] - Tio Hunter MD [Staff Physician] - Disposition: Home, Self-[facility] Medications: Home Medications Medication Instructions Recorded Confirmed Type Benazepril HCl 5 mg PO DAILY 09/24/19 09/24/19 History Budesonide/Formoterol Fumarate 2 puffs IH BID 09/24/19 09/24/19 History [Symbicort 160-4.5 Mcg Inhaler] Pantoprazole Sodium [Protonix 40mg 40 mg PO HS 30 Days #30 tablet. 09/28/19 Rx tablet] Sotalol HCl [Betapace 80mg Tablet] 80 mg PO BID 30 Days #60 tab 09/28/19 Rx Prescriptions/Medication Reconciliation: New Pantoprazole Sodium [Protonix 40mg tablet] 40 mg PO HS 30 Days #30 tablet. Sotalol HCl [Betapace 80mg Tablet] 80 mg PO BID 30 Days #60 tab Continued Budesonide/Formoterol Fumarate [Symbicort 160-4.5 Mcg Inhaler] 2 puffs IH BID Benazepril HCl 5 mg PO DAILY Discontinued bisoprolol 5 mg-hydrochlorothiazide 6.25 mg tablet 1 tab PO DAILY #90 tab albuterol sulfate 90 mcg/actuation aerosol inhaler 2 puff INHALATION Q6H PRN #18 g PRN Reason: shortness of breath or wheezing Aspirin [Aspirin 325mg Tab] 325 mg PO DAILY - Problem Reconciliation Problems Reviewed?: Yes
[2019-09-28 06:47] LABS: Basophils % 0.1 % (0.1-2.0); Eosinophils # 0.1 K/mm3 (0.0-0.4); Eosinophils % 0.4 % (0.1-12.0); Hematocrit 27.6 % (42.0-52.0); Hemoglobin 8.2 g/dL (14.1-18.0); Lymphocytes # 0.9 K/mm3 (0.7-4.5); Lymphocytes % 5.6 % (10-50); Mean Corpuscular HGB Conc 29.8 g/dL (31.8-35.4); Mean Corpuscular Volume 85.5 fl (80-94); Mean Platelet Volume 12.9 fl (7.4-10.4); Monocytes # 0.6 K/mm3 (0.1-1.0); Monocytes % 3.8 % (1.7-9.3); Neutrophils # 14.9 K/mm3 (1.8-7.8); Neutrophils % 90.1 % (37.0-80.0); Platelet Count 84 K/mm3 (142-424); Red Blood Count 3.23 M/mm3 (4.60-6.20); Red Cell Distribution Width 16.5 % (11.5-17.5); White Blood Count 16.6 K/mm3 (4.8-10.8)
[2019-09-28 06:53] LABS: Anion Gap 8.3 mEq/L (5-15)
[2019-09-28 06:54] LABS: Calcium 7.6 mg/dL (8.5-10.1)
[2019-09-28 08:49] LABS: Lymphocytes % 3 % (10-50); Monocytes % 2 % (2-9); Myelocytes % 1 (0-1); Neutrophils % 92 % (42-76); Total Cells Counted 100
[2019-09-28 08:50] LABS: Hypochromasia 2+; Stomatocytes 2+
--- NOTE | 2019-09-28 14:36 | Electrocardiograph Report ---
APPROVED REPORT Exam: Resting ECG HR:84 bpm ECG Measurements Heart Rate 84 AXES WY 124 P 81 QRSd 78 QRS 72 QT 360 T64 QTc 425 <Conclusion> Normal sinus rhythm Normal ECG Electronically signed by : Zeus Vu, 09/28/2019 14:36:04
== END 2019-09-28 13:21 | disposition home or self-care (01) | DRG 308 ==
LOC: ER 10:39 → 2ND 10:39 → OBSVTOIN 09-24 05:09 → 2ND 09-24 05:09 → ICU 09-28 04:52
PROVIDERS: ADMIT Emergency Medicine; ATTEND Emergency Medicine
CPT/HCPCS: 36415; 71010; 71020; 71045; 71046; 80048; 80053; 81001; 83605; 84436; 84443; 84479; 84484; 85007; 85014; 85018; 85025; 86850; 87040; 93005; 94640; 94761; 96365; 96366; 96367; 96375; 99285; P9016

== ENCOUNTER → 2019-10-10 13:53 | Outpatient (CLI) | payer MEDICARE, SELFPAY ==
[2019-10-10 14:22] LABS: Anion Gap 9.1 mEq/L (5-15); Basophils # 0.2 K/mm3 (0-0.2); Blood Urea Nitrogen 18 mg/dL (7-18); Carbon Dioxide 34 mmol/L (21.0-32.0); Chloride 99 mmol/L (98-107); Creatinine,Serum 0.67 mg/dL (0.70-1.30); Eosinophils # 0.6 K/mm3 (0.0-0.4); Eosinophils % 3.2 % (0.1-12.0); Estimated Glomerular Filt Rate 121 ml/min (>60); GFR (African American) 146 ML/MIN (>60); Glucose 84 mg/dL (74-106); Hematocrit 34.7 % (42.0-52.0); Hemoglobin 9.6 g/dL (14.1-18.0); Lymphocytes # 1.5 K/mm3 (0.7-4.5); Lymphocytes % 8.3 % (10-50); Mean Corpuscular HGB Conc 27.7 g/dL (31.8-35.4); Mean Corpuscular Hemoglobin 23.1 pg (27.0-31.2); Mean Corpuscular Volume 83.4 fl (80-94); Mean Platelet Volume 9.5 fl (7.4-10.4); Monocytes # 0.3 K/mm3 (0.1-1.0); Neutrophils # 15.1 K/mm3 (1.8-7.8); Neutrophils % 85.5 % (37.0-80.0); Platelet Count 94 K/mm3 (142-424); Potassium 5.1 mmoL/L (3.5-5.1); Red Blood Count 4.17 M/mm3 (4.60-6.20); Red Cell Distribution Width 17.2 % (11.5-17.5); Sodium 137 mmol/L (136-145); White Blood Count 17.6 K/mm3 (4.8-10.8)
[2019-10-10 15:07] LABS: MANUAL DIFFERENTIAL MANUAL DIFFERENTIAL (MANUAL DIFF)
[2019-10-10 18:29] LABS: Eosinophils % 2 % (0-3); Hypochromasia 2+; Lymphocytes % 19 % (10-50); Monocytes % 2 % (2-9); Neutrophils % 77 % (42-76); Platelet Estimate Slight Decrease; Total Cells Counted 100
== END ==
PROVIDERS: Visit Provider Emergency Medicine
DX: D62 Acute posthemorrhagic anemia (principal)
CPT/HCPCS: 80048; 85007; 85025

== ENCOUNTER → 2019-10-22 12:31 | Outpatient (CLI) | payer MEDICARE, MEDICAID, SELFPAY ==
--- NOTE | 2019-10-22 12:32 | CA_ITS ---
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 Study suggests 20-49% stenosis of the left internal cartoid artery unchanged from the 08/06/18 study. Antegrade flow seen bilateral vertebral arteries. 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 Study suggests 20-49% stenosis of the left internal cartoid artery unchanged from the 08/06/18 study. Antegrade flow seen bilateral vertebral arteries. Electronically signed by : Ori Leon, 10/22/2019 17:58:38
--- NOTE | 2019-10-22 12:32 | CA_ITS ---
APPROVED REPORT EXAM: Comprehensive 2D, Doppler, and color-flow Echocardiogram Financial Planning Assistant: Sonia Gamino RVT Ht: 5 ft 5 in Wt: 167lbs BSA: 1.83 BP: 97/55 mmHg Indications: COPD, Shortness of Breath, Atrial Fibrillation, Hypertension 2D Dimensions LVOT 1.81 cm (M/F) 1.5-2.5 M-Mode Dimensions RVDd 2.31 cm (0.9-2.6) LVDd 4.63 cm (3.5-5.7) LVDs 3.19 cm (3.5-5.7) IVSd 0.57 cm (0.6-1.1) PWd 0.64 cm (0.6-1.1) EF (Teich) 58.90% FS 31.10% EDV (Teich) 98.80 mL ESV (Teich) 40.60 mL LV Diastology E/A Ratio 1.38 Mitral Valve MV A Velocity 65.00 (40-130 cm/s) Left Ventricle Left atrium is mildly enlarged, left ventricle is normal size, mild concentric left ventricular hypertrophy, visually estimated ejection fraction 50%, there is moderate hypokinesis involving the inferior basal wall, endocardial surfaces are poorly visualized. Diastolic parameters are inconclusive. Right Ventricle Right atrium and right ventricle mildly enlarged with normal contractility. Aortic Valve Aortic valve is minimally thickened and fibrosed, there is no aortic stenosis, or aortic insufficiency. Mitral Valve Mitral valve has mitral calcification, leaflets are minimally thickened. There is no mitral stenosis. There is mild mitral regurgitation. Tricuspid Valve Tricuspid valve is grossly normal, there is mild tricuspid regurgitation, calculated right ventricular systolic pressure is 64 mmHg. Pulmonic Valve Pulmonic valve is poorly visualized. Great Vessels Aortic root is normal size. Pericardium No significant pericardial effusion noted. Conclusion 1. Mildly enlarged left atrium, normal left ventricular size, mild concentric left ventricular hypertrophy, visually estimated ejection fraction 50% with segmental wall motion abnormality described above, diastolic parameters are inconclusive. Endocardial surfaces are poorly visualized. 2. Mildly enlarged right ventricle with normal contractility. 3. Mild mitral and tricuspid regurgitation, calculated right ventricular systolic pressure is 64 mmHg. 4. No significant pericardial effusion noted. Electronically signed by : Arturo Tatum, 10/23/2019 14:59:00
== END ==
PROVIDERS: PCP Emergency Medicine; Visit Provider Urology
DX: I25.10 Atherosclerotic heart disease of native coronary artery without angina pectoris (principal); I48.91 Unspecified atrial fibrillation; R06.02 Shortness of breath; R53.83 Other fatigue; I65.29 Occlusion and stenosis of unspecified carotid artery; R42 Dizziness and giddiness
CPT/HCPCS: 93306; 93880

== ENCOUNTER → 2019-12-17 12:23 | Outpatient (CLI) | payer MEDICARE, MEDICAID, SELFPAY ==
--- NOTE | 2019-12-17 | CA_ITS ---
APPROVED REPORT Exam: Pharmacologic Technologist: Cony Henriquez, Ht: 5 ft 5 in Wt: 166 lbs BSA: 1.83 m2 HR: 78 bpm BP: 111/66 mmHg Rhythm: NSR,NORMAL Medical History Medical History: HTN, SOB Medications: Lisinopril,,,,, Sotalol,,,,, Pantoprazole,,,,, Lasix,,,,, SyMBICORT,,,,, Albuterol,,,,, SpirOLACTONE,,,,, Cardiac Risk Factors: HTN, SOB, Smoking Stress Test Details Test: LEXISCAN HR Resting HR: 76 bpm Max Heart Rate (APMHR): 160 bpm Max HR Achieved: 91 bpm Target HR (85% APMHR): 136 bpm % of APMHR: 56 Recovery HR: 84 bpm BP Resting BP: 111.0/66.0 mmHg Max BP: 111.0/66.0 mmHg Recovery BP: 94.0/54.0 mmHg ECG Resting ECG: NORMAL SINUS RHYTHM Clinical Exercise duration: 04:21 min Highest Stage Achieved: Stress ECG Conclusion DURING INFUSION OF LEXISCAN PATIENT HAD MILD MALAISE AND WAS LIGHT HEADED. NO CHEST PAIN. BRIEF SINUS BRADYCARDIA. NO SIGNIFICANT ST-T CHANGES. UNREMARKABLE LEXISCAN STRESS. MYOVIEW IMAGES REPORTED SEPARATELY. Test Summary RECOVERY 04:00 . . 85 . 96/ 58 . . REST 05:30 . . 76 . 111/ 66 . . Stage 1 . . . . . . . Cardiolite injected Stage 1 01:00 . . 79 . . . . Stage 2 01:00 . . 89 . 91/ 54 . . Stage 3 01:00 . . 89 . 100/ 60 . . Stage 4 01:00 . . 85 . 98/ 56 . . Stage 4 01:21 . . 84 . 104/ 55 . Stop exercise at 04:21 RECOVERY 01:00 . . 82 . . . . RECOVERY 02:00 . . 83 . 92/ 52 . . RECOVERY 03:00 . . 85 . 92/ 52 . . RECOVERY 04:00 . . 85 . 96/ 58 . . RECOVERY 04:54 . . 83 . 99/ 59 . . Electronically signed by : Brian Montano, 12/18/2019 08:50:40
--- NOTE | 2019-12-17 12:24 | NM_ITS ---
APPROVED REPORT Exam: Nuclear Stress Test Indication: SOB, HTN, High cholesterol, Tobacco use Patient Location: Outpatient Stress Tech: Linda Henriquez MS Tech:Tammy Saldana, ARRT, RT (R)(N) Ht: 5 ft 5 in Wt: 166 lbs HR: 78 bpm BP: 111/66 mmHg BSA: 1.83 m2 BMI: 27.6 History: SOB, HTN, High cholesterol, Tobacco use Procedure: Patient received a 0.4 mg of intravenous Lexiscan, resting heart rate 78 bpm, resting blood pressure 111/66 mmHg, with Lexiscan maximum heart rate achived was 89 bpm which is % of the maximum predicted heart rate and blood pressure was 100/60 mmHg. With Lexiscan, patient denied any complaint of chest pain. Cardiac Stress and Resting SPECT Images: Cardiac Stress and Resting SPECT images were obtained using technetium 99m Myoview 29.6 mCi stress and 10.36 mCi at rest. EF 58% Fixed defect apexl consistent witjh area of infarction with stephanie infarct ischemia Conclusion: EF 58% Abnormal Fixed defect apexl consistent witjh area of infarction with stephanie infarct ischemia Electronically signed by : Ron Long MD 12/17/2019 20:09:49
--- NOTE | 2019-12-17 12:43 | HMH.ITSHM ---
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 []SPIRONOLACTONE SOTALOL PANTOPRAZOLE LISINOPRIL FUROSEMIDE BUDESONIDE ALBUTEROL
== END ==
PROVIDERS: PCP Emergency Medicine; Visit Provider Urology
DX: I10 Essential (primary) hypertension (principal); I25.10 Atherosclerotic heart disease of native coronary artery without angina pectoris; I95.9 Hypotension, unspecified; R06.00 Dyspnea, unspecified; R93.1 Abnormal findings on diagnostic imaging of heart and coronary circulation
CPT/HCPCS: 78452; 93017; A9502; J2785

== ENCOUNTER → 2020-02-02 14:37 | Outpatient (CLI) | payer MEDICARE, MEDICAID, SELFPAY ==
[2020-02-02 15:36] LABS: Chloride 97 mmol/L (98-107); Potassium 4.4 mmoL/L (3.5-5.1); Sodium 134 mmol/L (136-145)
[2020-02-02 15:38] LABS: Blood Urea Nitrogen 23 mg/dl (9-20); Estimated Glomerular Filt Rate 115 ml/min (>60); GFR (African American) 139 ML/MIN (>60)
[2020-02-02 15:39] LABS: Alanine Aminotransferase 21 U/L (12-78); Albumin Level 4.2 g/dl (3.5-5.0); Albumin/Globulin Ratio 1.3 (1.1-1.8); Alkaline Phosphatase 152 U/L (38-126); Anion Gap 13.4 mEq/L (5-15); Aspartate Amino Transferase 28 U/L (17-59); Bilirubin,Total 1.1 mg/dl (0.2-1.3); Calcium 9.3 mg/dl (8.4-10.2); Carbon Dioxide 28 mmol/L (22.0-30.0); Cholesterol 166 mg/dl (140-200); Globulin 3.2 g/dL (1.3-3.2); Glucose 94 mg/dl (74-100); HDL Cholesterol 56 mg/dl (40-60); Total Protein,Serum 7.4 g/dl (6.3-8.2); Triglycerides 75 mg/dl (30-150); VLDL Cholesterol 15 mg/dL (0-40)
[2020-02-02 15:53] LABS: Basophils # 0.1 K/mm3 (0-0.2); Basophils % 0.7 % (0.1-2.0); Eosinophils # 0.3 K/mm3 (0.0-0.4); Eosinophils % 2.2 % (0.1-12.0); Lymphocytes # 1.4 K/mm3 (0.7-4.5); Lymphocytes % 9.3 % (10-50); Mean Corpuscular HGB Conc 27.2 g/dL (31.8-35.4); Mean Corpuscular Hemoglobin 17.5 pg (27.0-31.2); Mean Corpuscular Volume 64.5 fl (80-94); Mean Platelet Volume 10.5 fl (7.4-10.4); Monocytes # 0.3 K/mm3 (0.1-1.0); Neutrophils # 13.2 K/mm3 (1.8-7.8); Neutrophils % 85.8 % (37.0-80.0); Platelet Count 95 K/mm3 (142-424); White Blood Count 15.4 K/mm3 (4.8-10.8)
[2020-02-02 15:57] LABS: T4 (Thyroxine) 8.8 ug/dl (5.53-11.0)
[2020-02-02 16:04] LABS: Hematocrit 43.9 % (42.0-52.0); Hemoglobin 11.9 g/dL (14.1-18.0); Red Blood Count 6.81 M/mm3 (4.60-6.20)
[2020-02-02 16:05] LABS: MANUAL DIFFERENTIAL MANUAL DIFFERENTIAL (MANUAL DIFF)
[2020-02-02 16:10] LABS: Thyroid Stimulating Hormone 1.39 uIU/mL (0.465-4.68)
[2020-02-02 16:43] LABS: Erythrocyte Sedimentation Rate 13 mm/hr (0-20)
[2020-02-02 17:08] LABS: Eosinophils % 1 % (0-3); Hypochromasia 3+; Lymphocytes % 17 % (10-50); Monocytes % 4 % (2-9); Neutrophils % 77 % (42-76); Platelet Estimate Marked Decrease; Total Cells Counted 100
[2020-02-02 17:09] LABS: Microcytosis 3+
[2020-02-04 08:41] LABS: Vitamin D 25 Hydroxy 35.4 ng/mL (30.0-100.0)
== END ==
PROVIDERS: Visit Provider Emergency Medicine
DX: I10 Essential (primary) hypertension (principal)
CPT/HCPCS: 80053; 80061; 82652; 84436; 84443; 85007; 85025; 85651

== ENCOUNTER → 2020-02-12 10:10 | Outpatient (CLI) | payer MEDICARE, MEDICAID, SELFPAY ==
--- NOTE | 2020-02-12 10:10 | XR_ITS ---
PROCEDURE: XR CHEST 2V CLINICAL HISTORY: COPD COPD, cough, smoker COMPARISON: [facility] CT CHEST W/O CONTRAST from 04/24/2014 XR CHEST PORTABLE from 09/23/2019 XR CHEST PORTABLE from 09/24/2019 XR CHEST 2V from 09/27/2019 FINDINGS: The cardiomediastinal silhouette and pulmonary vascularity are within normal limits. Hyperinflation with prominent anterior clear space consistent with COPD. Chronic coarsening of the bronchovascular markings. No lobar consolidation or collapse. Previously noted CHF has improved No acute bony abnormalities. IMPRESSION: COPD with chronic changes Dictated by: Ron Long MD 02/12/2020 11:47 Electronically signed by Ron Long MD in [place] 02/12/2020 11:47
--- NOTE | 2020-02-12 10:10 | CT_ITS ---
PROCEDURE: CT ABDOMEN PELVIS W CON CLINICAL INDICATION: abdominal pain, fatigue, fullness COMPARISON: CT ABDOMEN PELVIS W CON from 09/17/2019 TECHNIQUE: IV Contrast: 75ML OPTIRAY 350 Oral Contrast 20ml Gastroview Axial images obtained with sagittal and coronal reformats. All CT scans at the facility use one or more dose reduction, viz: automated exposure control, ma/kV adjustment per patient size (including targeted exams where dose is matched to indication, i.e. head), or iterative reconstruction technique. FINDINGS: LOWER THORAX: No acute finding. Previously noted opacities in the right middle lobe are not apparent on today's exam ABDOMEN & PELVIS: The liver, gallbladder, spleen, adrenal glands, pancreas, and kidneys have an unremarkable appearance other than 2 small left renal cyst less than 1 cm. No intestinal obstruction or free air. No evidence of appendicitis. There are scattered colonic diverticula but no evidence of diverticulitis. No abdominal or pelvic mass or adenopathy. No abnormal fluid collections. The there are mild degenerative changes of the lumbar spine with a disc osteophyte complex posteriorly at L5-S1. IMPRESSION: No acute finding Dictated by: Ron Long MD 02/13/2020 08:59 Electronically signed by Ron Long MD in [place] 02/13/2020 08:59
== END ==
PROVIDERS: PCP Emergency Medicine; Visit Provider Physician Assistant
DX: J44.0 Chronic obstructive pulmonary disease with (acute) lower respiratory infection (principal); R10.9 Unspecified abdominal pain; R19.8 Other specified symptoms and signs involving the digestive system and abdomen; R53.83 Other fatigue
CPT/HCPCS: 71046; 74177; Q9967

== ENCOUNTER → 2020-02-26 14:08 | Outpatient (CLI) | payer MEDICARE, MEDICAID, SELFPAY ==
--- NOTE | 2020-02-26 16:00 | PC.NURSE ---
PATIENT REFUSED TO DO WALK TEST AND REFUSED TO HAVE OXYGEN. PHYLLIS AT DR. NINO OFFICE NOTIFIED
== END ==
PROVIDERS: PCP Emergency Medicine; Visit Provider Emergency Medicine
DX: J44.9 Chronic obstructive pulmonary disease, unspecified (principal)
CPT/HCPCS: 94060; 94727; 94729

== ENCOUNTER 2020-10-12 15:27 | Observation (INO) | payer MEDICARE, MEDICAID, SELFPAY ==
[2020-10-12] VITALS (8 sets, daily range): BP systolic 90–107; BP diastolic 53–70; PULSE 76–85; RESP 16–20; TEMP 36.6–37; O2SAT 82–95; BMI 24.1
--- NOTE | 2020-10-12 15:52 | HMH.EDGENADL ---
ED Disposition Clinical Impression: Thrombocytopenia, Occult blood in stools, Elevated troponin, Acute kidney injury, Elevated liver enzymes, Jaundice Leukocytosis Qualifiers: Leukocytosis type: unspecified Qualified Code(s): D72.829 - Elevated white blood cell count, unspecified Anemia Qualifiers: Anemia type: unspecified type Qualified Code(s): D64.9 - Anemia, unspecified COPD (chronic obstructive pulmonary disease) Qualifiers: COPD type: unspecified COPD Qualified Code(s): J44.9 - Chronic obstructive pulmonary disease, unspecified Respiratory failure with hypoxia and hypercapnia Qualifiers: Chronicity: acute on chronic Qualified Code(s): J96.21 - Acute and chronic respiratory failure with hypoxia Pneumonia Qualifiers: Pneumonia type: due to unspecified organism Laterality: unspecified laterality Lung location: unspecified part of lung Qualified Code(s): J18.9 - Pneumonia, unspecified organism Cirrhosis Qualifiers: Hepatic cirrhosis type: unspecified hepatic cirrhosis Ascites presence: without ascites Qualified Code(s): K74.60 - Unspecified cirrhosis of liver Disposition: Admitted As Inpatient Condition on Discharge: Serious - Critical Care Critical Care Time: Yes Attestation: On 10/12/20, the high probability of a clinically significant, sudden or life threatening deterioration of the following system(s) required my full and direct attention, intervention and personal management. The time I documented below is in addition to time spent performing reported procedures but includes the following listed in this critical care notation. Total Critical Care Time: 35 Vital system(s) involved:: Respiratory Failure, Renal Failure My critical care processes included: Assessment & monitoring of V/S, Initial and Re-exams, Data Review/Interpretation, Coordinating Care, Medication Orders and management, Documentation Medical Decision Making - Medical Records Medical records reviewed: Yes: I reviewed the patient's medical records. MR Comment: Reviewed office note from today, Dr. Pepper's office. Reviewed prior labs, on 02/02/2020 WBC was 15.4 but had been as high as 46.5 on 09/23/2019. Platelet count 95,000 and hemoglobin 11.9 on 02/02/2020. - Toby Inquiry Pt receiving controlled substance: No Vital Signs: 10/12/20 15:29 10/12/20 16:00 10/12/20 16:32 Temperature 98.0 F Temperature Source Oral Pulse Rate [Right Radial] 82 79 Respiratory Rate 18 20 Blood Pressure [Right Arm] 90/53 L 93/59 L Blood Pressure Mean [Right Arm] 65 70 Blood Pressure Source [Right Arm] Automatic Cuff Automatic Cuff Blood Pressure Position [Right Arm] Sitting Sitting 02 Sat by Pulse Oximetry 82 L 93 L 93 L Oxygen Delivery Method Room Air Nasal Cannula Nasal Cannula Oxygen Flow Rate (LPM) 3 3 10/12/20 17:12 10/12/20 17:54 Temperature Temperature Source Pulse Rate [Right Radial] 76 76 Respiratory Rate Blood Pressure [Right Arm] 107/67 L 103/66 L Blood Pressure Mean [Right Arm] 80 78 Blood Pressure Source [Right Arm] Automatic Cuff Automatic Cuff Blood Pressure Position [Right Arm] Sitting Sitting 02 Sat by Pulse Oximetry 95 95 Oxygen Delivery Method Nasal Cannula Nasal Cannula Oxygen Flow Rate (LPM) 2 2 - Lab Data Lab Results 10/12/20 15:43: WBC 47.0 H*, Corrected WBC 35.1 H*, RBC 4.33 L, Hgb 10.4 L, Hct 37.0 L, MCV 85.5, MCH 24.1 L, MCHC 28.2 L, RDW 19.9 H, Plt Count 21 L*, MPV 13.0 H, Neut % (Auto) 90.4 H, Lymph % (Auto) 8.0 L, [place] % (Auto) 1.0 L, Eos % (Auto) 0.6, Baso % (Auto) 12.6 H, Neut # (Auto) 42.5 H, Lymph # (Auto) 3.8, [place] # (Auto) 0.5, Eos # (Auto) 0.3, Baso # (Auto) 5.9 H, Total Counted 100, Neutrophils % (Manual) 22 L, Lymphocytes % (Manual) 34, Monocytes % (Manual) 44 H, Nucleated RBCs 34, Platelet Estimate Marked decrease, RBC Morphology Normal, Hypochromasia 2+ 10/12/20 15:43: Sodium 137, Potassium 5.4 H, Chloride 103, Carbon Dioxide 26, Anion Gap 13.4, BUN 48 H, Creatinine 2.40 H, Estimated Creat Penelope
--- NOTE | 2020-10-12 16:00 | PC.NURSE ---
during triage pt reports dr. gilliam was discussing ordering home oxygen for pt r/t low SaO2
--- NOTE | 2020-10-12 16:14 | ECG_ITS ---
APPROVED REPORT Exam: Resting ECG HR:81 bpm ECG Measurements Heart Rate 81 AXES RI 138 P 80 QRSd 68 QRS 83 QT 400 T -36 QTc 464 Conclusion Normal sinus rhythm Nonspecific ST abnormality Abnormal QRS-T angle, consider primary T wave abnormality Abnormal ECG Electronically signed by : Zeus Vu, 10/13/2020 06:28:37
--- NOTE | 2020-10-12 16:43 | PC.NURSE ---
contacted lab to check on status of pt lab work, states she just now got the blood she isnt sure why it hadn't been previously started but she is putting it on the analyzer now
[2020-10-12 16:46] LABS: Basophils # 5.9 K/mm3 (0-0.2); Basophils % 12.6 % (0.1-2.0); Chloride 103 mmol/L (98-107); Eosinophils # 0.3 K/mm3 (0.0-0.4); Eosinophils % 0.6 % (0.1-12.0); Hemoglobin 10.4 g/dL (14.1-18.0); Lymphocytes # 3.8 K/mm3 (0.7-4.5); Mean Corpuscular HGB Conc 28.2 g/dL (31.8-35.4); Mean Corpuscular Hemoglobin 24.1 pg (27.0-31.2); Mean Corpuscular Volume 85.5 fl (80-94); Monocytes # 0.5 K/mm3 (0.1-1.0); Neutrophils # 42.5 K/mm3 (1.8-7.8); Neutrophils % 90.4 % (37.0-80.0); Red Blood Count 4.33 M/mm3 (4.60-6.20); Red Cell Distribution Width 19.9 % (11.5-17.5); Sodium 137 mmol/L (136-145)
[2020-10-12 16:47] LABS: Potassium 5.4 mmoL/L (3.5-5.1)
[2020-10-12 16:49] LABS: Alanine Aminotransferase 333 U/L (12-78); Albumin Level 4.4 g/dl (3.5-5.0); Albumin/Globulin Ratio 1.2 (1.1-1.8); Alkaline Phosphatase 161 U/L (38-126); Anion Gap 13.4 mEq/L (5-15); Aspartate Amino Transferase 330 U/L (17-59); Bilirubin,Total 5.1 mg/dl (0.2-1.3); Blood Urea Nitrogen 48 mg/dl (9-20); Carbon Dioxide 26 mmol/L (22.0-30.0); Creatinine Clearance Estimated 30 mL/min (50-200); Estimated Glomerular Filt Rate 28 ml/min (>60); GFR (African American) 33 ML/MIN (>60); Globulin 3.6 g/dL (1.3-3.2); MANUAL DIFFERENTIAL MANUAL DIFFERENTIAL (MANUAL DIFF); Platelet Count 21 K/mm3 (142-424)
[2020-10-12 16:50] LABS: Calcium 9.3 mg/dl (8.4-10.2); Glucose 105 mg/dl (74-100)
--- NOTE | 2020-10-12 16:50 | XR_ITS ---
PROCEDURE: XR CHEST PORTABLE CLINICAL HISTORY: soa Shortness of air, COPD COMPARISON: CT [facility] CT CHEST W/O CONTRAST from 04/24/2014 CR XR CHEST PORTABLE from 09/24/2019 CR XR CHEST 2V from 09/27/2019 CR XR CHEST 2V from 02/12/2020 FINDINGS: The cardiomediastinal silhouette and pulmonary vascularity are within normal limits. There are changes of COPD with some prominence of the interstitium. Superimposed increased density is present in the right lower lobe consistent with superimposed pneumonia. Calcific tendinitis noted of the left shoulder IMPRESSION: COPD with chronic changes with suspected superimposed pneumonia of the right lower lobe Dictated by: Ron Long MD 10/12/2020 17:42 Ron Long MD in [place] 10/12/2020 17:42
[2020-10-12 16:52] LABS: Occult Blood,Stool Positive (Negative)
[2020-10-12 17:02] LABS: Troponin I 0.28 ng/ml (0.00-0.034)
[2020-10-12 17:05] LABS: VBG Base Excess -4.9 mmol/L (-2.4-2.3); VBG HCO3 22.4 mmol/L (23-30); VBG Oxygen Saturation 58.5 % (50-70); VBG PCO2 53.3 mmol/L (35-51); VBG PH 7.24 mmol/L (7.31-7.41); VBG PO2 36.7 mmol/L (28-40); VBG Total CO2 24.1 mmol/L (23-27)
[2020-10-12 17:22] LABS: Coronavirus 19 IgG Antibody Negative (Negative); Coronavirus 19 IgM Antibody Negative (Negative)
[2020-10-12 17:27] LABS: Corrected White Blood Count 35.1 K/mm3 (4.8-10.8); Lymphocytes % 34 % (10-50); Monocytes % 44 % (2-9); Neutrophils % 22 % (42-76); Nucleated Red Blood Cells 34; Platelet Estimate Marked Decrease; RBC Morphology Normal; Total Cells Counted 100
[2020-10-12 17:28] LABS: Hypochromasia 2+
--- NOTE | 2020-10-12 17:30 | CT_ITS ---
PROCEDURE: CT ABDOMEN PELVIS WO CON CLINICAL INDICATION: abdo pain Abdominal pain, loss of appetite COMPARISON: CT CT ABDOMEN PELVIS W CON from 02/12/2020 TECHNIQUE: Axial images obtained with sagittal and coronal reformats. All CT scans at the facility use one or more dose reduction, viz: automated exposure control, ma/kV adjustment per patient size (including targeted exams where dose is matched to indication, i.e. head), or iterative reconstruction technique. FINDINGS: LOWER THORAX: Septal thickening with hazy ground-glass attenuation noted in the right lower lobe which could represent pneumonia. ABDOMEN & PELVIS: The liver, spleen, adrenal glands, pancreas, and gallbladder have an unremarkable appearance. There are few small peripancreatic and periportal lymph nodes. There is a nonobstructing punctate stone in the lower pole of the left kidney at 3 mm. Atherosclerotic calcification involves the aortoiliac vessels with high-grade stenosis of the external iliac arteries bilaterally. No evidence of appendicitis or diverticulitis. There are few colonic diverticula noted. There is degenerative disc disease at L4-5 and L5-S1. IMPRESSION: No acute intra-abdominal findings. Nonobstructing stone lower pole left kidney. Septal thickening with hazy ground-glass attenuation in the right lower lobe suspicious for pneumonia. Dictated by: Ron Long MD 10/12/2020 19:28 Ron Long MD in [facility] 10/12/2020 19:28
--- NOTE | 2020-10-12 17:42 | PC.NURSE ---
pt to radiology
[2020-10-12 17:49] LABS: Alanine Aminotransferase 336 U/L (12-78); Alkaline Phosphatase 163 U/L (38-126); Aspartate Amino Transferase 333 U/L (17-59); Bilirubin, Conjugated 0.2 mg/dL (0.0-0.3); Bilirubin,Direct 1.5 mg/dl (0.0-0.4); Bilirubin,Indirect 3.7 mg/dL (0.0-0.9); Bilirubin,Total 5.2 mg/dl (0.2-1.3); Bilirubin,Unconjugated 3.7 mg/dL (0.0-1.1)
[2020-10-12 17:50] LABS: Albumin Level 4.4 g/dl (3.5-5.0); Lipase 45 U/L (23-300)
--- NOTE | 2020-10-12 18:45 | PC.NURSE ---
contacted second floor to try to give report, spoke with state game warden who states she does not know what nurse is getting the pt and she will have charge call me back
[2020-10-12 19:00] LABS: Lactic Acid 1.1 mmol/L (0.7-2.1)
[2020-10-12 19:12] LABS: Troponin I 0.29 ng/ml (0.00-0.034)
--- NOTE | 2020-10-12 19:30 | PC.NURSE ---
report received from [facility]. pt transferred to second floor via wc and social work coordinator.
[2020-10-12 19:46] LABS: INR 1.21 (0.9-1.1); Prothrombin Time 13.2 seconds (9.4-11.8)
--- NOTE | 2020-10-12 19:49 | PC.NURSE ---
PT ARRIVED TO THE FLOOR VIA W/C WITH STAFF FROM ED AT [phone]
[2020-10-12 22:50] LABS: Troponin I 0.21 ng/ml (0.00-0.034)
[2020-10-13] VITALS (7 sets, daily range): BP systolic 78–90; BP diastolic 44–54; PULSE 65–88; RESP 15–18; TEMP 36.6–36.8; O2SAT 90–94; BMI 24.1; BMI 24.2
--- NOTE | 2020-10-13 05:32 | PC.NURSE ---
Addendum entered by Jaclyn Maldonado RN 10/13/20 06:50: No new orders per MD Pepper Original Note: MD Pepper paged regarding pt's 0400 BP of 78/44.
--- NOTE | 2020-10-13 05:54 | PC.NURSE ---
Pt is A&Ox4. Pt has rested well this shift. Coarse crackles heard @ bilat bases, and diminished @ the upper lobes. Pt continues to tolerate 2L NC. Active bowel sounds in all 4 quads. No BM noted this shift. Pt is NSR on tele. Afebrile this shift. Pt has been hypotensive this shift w/ lowest BP of 78/44. Message left for MD Pepper, still awaiting callback @ this time. No other acute change or complaints at this time.
[2020-10-13 07:55] LABS: Anion Gap 11.7 mEq/L (5-15); Blood Urea Nitrogen 52 mg/dl (9-20); Carbon Dioxide 25 mmol/L (22.0-30.0); Chloride 104 mmol/L (98-107); Creatinine Clearance Estimated 45 mL/min (50-200); Estimated Glomerular Filt Rate 44 ml/min (>60); GFR (African American) 53 ML/MIN (>60); Glucose 85 mg/dl (74-100); Potassium 4.7 mmoL/L (3.5-5.1); Sodium 136 mmol/L (136-145)
[2020-10-13 08:06] LABS: Calcium 8.3 mg/dl (8.4-10.2)
[2020-10-13 08:21] LABS: Basophils # 4.3 K/mm3 (0-0.2); Basophils % 11.1 % (0.1-2.0); Eosinophils # 0.3 K/mm3 (0.0-0.4); Eosinophils % 0.7 % (0.1-12.0); Hematocrit 32.2 % (42.0-52.0); Lymphocytes # 2.8 K/mm3 (0.7-4.5); Lymphocytes % 7.2 % (10-50); Mean Corpuscular HGB Conc 27.9 g/dL (31.8-35.4); Mean Corpuscular Hemoglobin 24.1 pg (27.0-31.2); Mean Corpuscular Volume 86.4 fl (80-94); Mean Platelet Volume 15.7 fl (7.4-10.4); Monocytes # 0.5 K/mm3 (0.1-1.0); Monocytes % 1.2 % (1.7-9.3); Neutrophils # 35.2 K/mm3 (1.8-7.8); Neutrophils % 90.9 % (37.0-80.0); Red Blood Count 3.73 M/mm3 (4.60-6.20); Red Cell Distribution Width 19.8 % (11.5-17.5); White Blood Count 38.8 K/mm3 (4.8-10.8)
[2020-10-13 08:25] LABS: Platelet Count 18 K/mm3 (142-424)
[2020-10-13 08:27] LABS: MANUAL DIFFERENTIAL MANUAL DIFFERENTIAL (MANUAL DIFF)
[2020-10-13 09:37] LABS: Lymphocytes % 15 % (10-50); Monocytes % 35 % (2-9); Neutrophils % 12 % (42-76); Nucleated Red Blood Cells 25; Total Cells Counted 100
[2020-10-13 09:53] LABS: Hypochromasia 1+; Platelet Estimate Marked Dec
[2020-10-13 09:55] LABS: Ovalocytes 1+; Poikilocytosis 2+; Stomatocytes 2+
--- NOTE | 2020-10-13 12:06 | HMH.PHAVTE ---
[facility] Pharmacy VTE Monitoring - Patient Demographics Admission date: 10/12/20 Report Date: 10/13/20 Time: 12:06 Allergies/Adverse Reactions: Patient Allergies No Known Allergies Allergy (Verified 10/12/20 15:08) Height: 1.65 m Weight: 65.771 kg Patient Problems: Current Active Problems Thrombocytopenia (Acute) Occult blood in stools (Acute) Elevated troponin (Acute) Acute kidney injury (Acute) Elevated liver enzymes (Acute) Jaundice (Acute) Respiratory failure with hypoxia and hypercapnia (Acute) Pneumonia (Acute) Cirrhosis (Acute) Anemia (Acute) Leukocytosis (Acute) COPD (chronic obstructive pulmonary disease) (Chronic) - VTE Risk Labs: VTE Related Lab Results Hgb 9.0 g/dL (14.1-18.0) L D 10/13/20 07:07 Hct 32.2 % (42.0-52.0) L 10/13/20 07:07 Plt Count 18 K/mm3 (142-424) L* 10/13/20 07:07 PT 13.2 seconds (9.4-11.8) H 10/12/20 15:43 INR 1.21 (0.9-1.1) H 10/12/20 15:43 BUN 52 mg/dl (9-20) H 10/13/20 07:07 Creatinine 1.60 mg/dl (0.66-1.25) H D 10/13/20 07:07 Estimated Creat Clear 45 mL/min (50-200) 10/13/20 07:07 VTE Score: 4 VTE Risk Level: Low Risk - Prophylaxis VTE Prophylaxis Ordered?: Yes Types of VTE Prophylaxis: TEDS Knee High Location of Applied Device: Bilateral Lower Extremeties
--- NOTE | 2020-10-13 12:13 | HMH.PHAINT ---
MEDICATION RECONCILIATION COMPLETED ON PATIENT USING EXTERNAL FILL HISTORY FROM PHARMACY. -CLARITA GAXIOLA, DONOVAND
--- NOTE | 2020-10-13 12:15 | CT_ITS ---
PROCEDURE: CT CHEST WO CON CLINICAL INDICATION: pneumonia Abnormality noted in the lung base on previous abdomen CT, further evaluation desired. COMPARISON: CT LUNGSCREEN CT lung screening from 04/17/[address] ABDOMEN PELVIS WO CON from 10/12/2020 TECHNIQUE: Axial images obtained with sagittal and coronal reformats. All CT scans at the facility use one or more dose reduction, viz: automated exposure control, ma/kV adjustment per patient size (including targeted exams where dose is matched to indication, i.e. head), or iterative reconstruction technique. FINDINGS: Mildly prominent lymph nodes are present with in the left axilla the slightly more prominent when compared to 04/17/2018. There are few small mediastinal lymph nodes the largest in the pre carinal region measuring 2 cm transverse previously measuring 1.5 cm. Severe coronary artery calcifications are present. No evidence of aortic aneurysm. Atherosclerotic calcification involves the thoracic aorta. COPD with centrilobular emphysema with scattered interlobular septal thickening in the right upper and right lower lobe. There is faint ground-glass attenuation of the right upper, right middle, and right lower lobe . Images of the lung bases are similar when compared to the previous abdomen CT of 10/12/2010. Mild atelectatic changes are present in the lung bases. There are degenerative changes in the thoracic spine. Upper abdominal images show mild gallbladder wall thickening. Gynecomastia is noted. IMPRESSION: There is mild diffuse interlobular septal thickening with faint ground-glass attenuation of the right upper and right middle and right lower lobe. This is somewhat similar when compared to 10/12/2020. This could be a manifestation of viral/atypical/Covid19 pneumonia. There is superimposed COPD with centrilobular emphysema. Dictated by: Ron Long MD 10/13/2020 13:53 Ron Long MD in [place] 10/13/2020 13:53
[2020-10-13 13:08] LABS: Adenovirus,PCR Not Detected (NotDetected); Bordetella Pertussis Not Detected (NotDetected); Chlamydophila Pneumoniae, PCR Not Detected (NotDetected); Coronavirus 19, PCR Not Detected (NotDetected); Coronavirus 229E Not Detected (NotDetected); Coronavirus NL63 Not Detected (NotDetected); Coronavirus OC43 Not Detected (NotDetected); Coronovirus HKU1,PCR Not Detected (NotDetected); Human Metapneumovirus Not Detected (NotDetected); Influenza A, PCR Not Detected (NotDetected); Influenza AH1, 2009 Not Detected (NotDetected); Influenza AH1, PCR Not Detected (NotDetected); Influenza AH3,PCR Not Detected (NotDetected); Influenza B, PCR Not Detected (NotDetected); Mycoplasma Pneumoniae, PCR Not Detected (NotDetected); Parainfluenza 1, PCR Not Detected (NotDetected); Parainfluenza 2, PCR Not Detected (NotDetected); Parainfluenza 3, PCR Not Detected (NotDetected); Parainfluenza 4, PCR Not Detected (NotDetected); Respiratory Syncytial Virus Not Detected (NotDetected); Rhinovirus/Enterovirus Not Detected (NotDetected)
--- NOTE | 2020-10-13 13:50 | PC.NURSE ---
Called Dwayne Goodwin aprn at this timew in re to pt being adiment to leave [facility]. Have explained to pt that he is at risk for complications and even possibly if leaving [facility]. Pt verbs understanding and states he just wants to leave and this is [facility]. Pt states nothing else could be done, except take this IV out. [id number]. Explained tests are still pending.
--- NOTE | 2020-10-13 13:54 | PC.NURSE ---
Did make Dwayne Goodwin APRN aware of platelet count of 18 that was a notification at 0826. Also, pt stated he wanted to leave this afternoon because he feels fine and thought he would get to leave today. This nurse explained there were some tests ordered and it would be in his best interest to have them done. Pt did agree at this time. Awaiting ct results currently. Will cont to mx. Needs to be prior to note just entered.
--- NOTE | 2020-10-13 13:54 | HMH.HPDC ---
General - General Admission date:: 10/12/20 Discharge date: 10/13/20 *Admission Date: 10/12/20 *Chief complaint: Fatigue *History of present illness: Sent from Dr. Pepper's office who suspects the patient is anemic in need of transfusion. He has a history of blood loss anemia 1 year ago requiring 6 units of blood, according to him and his . He says that he had a bleeding ulcer. He says that it was related to steroids. He went to see Dr. Pepper today to be assessed for home oxygen for his COPD. His pulse ox was found to be 82% in the office, but Dr. Pepper also felt that he looked pale and was likely anemic again and therefore sent him to the emergency department. He complains of his usual shortness of breath. He has severe dyspnea on exertion. All of this is chronic. He denies any hematemesis, melena, or hematochezia. He did report epigastric pain to Dr. Pepper. He denies chest pain. Denies fever or cough. He is a smoker. He does complain of some generalized epigastric pain, he denies nausea/vomiting/diarrhea or fever/chills/body aches Patient reports that his blood pressure always runs low, in the 90s. This is confirmed by Dr. Pepper when I spoke with him. Radiology reads possible pneumonia on chest x-ray. Rocephin ordered. Zithromax and Levaquin both incompatible with sotalol. I will use monotherapy at this time. Labs drawn in the emergency department: Elevated white blood cell count 47, H/H 10.4/37.0, platelets decreased at 21, sodium 130, potassium 5.4 BUN elevated to 48, creatinine elevated 2.4. LFTs all elevated with AST 333, ALT 336 SARS-COV-2 PCR negative Chest x-ray: FINDINGS: The cardiomediastinal silhouette and pulmonary vascularity are within normal limits. There are changes of COPD with some prominence of the interstitium. Superimposed increased density is present in the right lower lobe consistent with superimposed pneumonia. Calcific tendinitis noted of the left shoulder IMPRESSION: COPD with chronic changes with suspected superimposed pneumonia of the right lower lobe Dictated by: Ethan Abdomen/pelvis CT: FINDINGS: LOWER THORAX: Septal thickening with hazy ground-glass attenuation noted in the right lower lobe which could represent pneumonia. ABDOMEN & PELVIS: The liver, spleen, adrenal glands, pancreas, and gallbladder have an unremarkable appearance. There are few small peripancreatic and periportal lymph nodes. There is a nonobstructing punctate stone in the lower pole of the left kidney at 3 mm. Atherosclerotic calcification involves the aortoiliac vessels with high-grade stenosis of the external iliac arteries bilaterally. No evidence of appendicitis or diverticulitis. There are few colonic diverticula noted. There is degenerative disc disease at L4-5 and L5-S1. IMPRESSION: No acute intra-abdominal findings. Nonobstructing stone lower pole left kidney. Septal thickening with hazy ground-glass attenuation in the right lower lobe suspicious for pneumonia. Dictated by: DEBRA Long History I have reviewed the patient's past medical history: Yes Medical History: Reports:: Chronic Obstructive Pulmonary Disease (COPD), Congenital Heart Disease, Coronary Artery Disease, Hyperlipidemia, Hypertension, Lung Disease, Myocardial Infarction, Palpitations Denies:: Cancer, Diabetes Mellitus Type 1, Diabetes Mellitus Type 2, Internal Pacemaker, MRSA, Seizures *Have you ever received a pneumonia vaccine?: Yes *Have you received a flu vaccine this season?: Yes Other Medical History: Reports: Anemia, Sinus Problems Other Surgeries: Yes: Cardiac Catheterization, Colonoscopy, Other (back surgery). No: Pacemaker Amputation: No Fractures: No - *Social History Last grade of school completed: 11th or 12th Smoking Status: Current every day smoker Tobacco Type: cigarettes # Packs/Day (cigarettes): 1 Alcohol Intake: never Substance Use Type: denies use *Occupational
[2020-10-13 14:07] LABS: Alanine Aminotransferase 317 U/L (12-78); Aspartate Amino Transferase 212 U/L (17-59); Bilirubin, Conjugated 0.1 mg/dL (0.0-0.3); Bilirubin,Unconjugated 2.4 mg/dL (0.0-1.1)
[2020-10-13 14:08] LABS: Albumin Level 3.4 g/dl (3.5-5.0); Alkaline Phosphatase 122 U/L (38-126); Bilirubin,Direct 1.2 mg/dl (0.0-0.4); Bilirubin,Indirect 2.4 mg/dL (0.0-0.9); Bilirubin,Total 3.6 mg/dl (0.2-1.3); Total Protein,Serum 6.5 g/dl (6.3-8.2)
--- NOTE | 2020-10-13 14:44 | PC.NURSE ---
Dwayne Goodwin APRN did place d/c and pt left at 1430. Pt did agree to go to Dr. Delacruz office sunday10/15/20 @ 1415. Encouraged pt to return with new or worsening s/s. Verbalized understanding.
[2020-10-14 11:54] LABS: Hep A Ab, IgM Negative (Negative); Hepatitis B Core Antibody IgM Negative (Negative); Hepatitis B Surface Antigen Negative (Negative)
[2020-10-14 12:02] LABS: Hepatitis C Antibody <0.1 s/co ratio (0.0-0.9)
[2020-10-14 17:01] LABS: Peripheral Smear Review Scanned Result
== END 2020-10-13 14:30 | disposition left against medical advice (07) | DRG 193 ==
LOC: ER 17:52 → 2ND 10-13 13:58
PROVIDERS: Nurse Practitioner Family; Admitting Provider Emergency Medicine; Emergency Provider Emergency Medicine; PCP Emergency Medicine; Visit Provider Emergency Medicine
DX: J18.9 Pneumonia, unspecified organism (principal); J96.01 Acute respiratory failure with hypoxia; J96.02 Acute respiratory failure with hypercapnia; J44.9 Chronic obstructive pulmonary disease, unspecified; I25.2 Old myocardial infarction; I25.10 Atherosclerotic heart disease of native coronary artery without angina pectoris; Z79.51 Long term (current) use of inhaled steroids; E78.5 Hyperlipidemia, unspecified; K74.60 Unspecified cirrhosis of liver; I10 Essential (primary) hypertension; D64.9 Anemia, unspecified
CPT/HCPCS: 36415; 71045; 71250; 74176; 80048; 80053; 80074; 80076; 82272; 82803; 83605; 83690; 84484; 85007; 85025; 85610; 86328; 87040; 87581; 87633; 87798; 93005; 94640; 94760; 96365; 96375; 99284; G0328; G0378; U0003

== ENCOUNTER 2020-10-19 09:44 | Inpatient (IN) | payer MEDICARE, MEDICAID, SELFPAY ==
[2020-10-19] VITALS (13 sets, daily range): BP systolic 84–97; BP diastolic 32–59; PULSE 62–87; RESP 16–22; TEMP 36.7–37.1; O2SAT 68–98; BMI 26.4
--- NOTE | 2020-10-19 10:00 | ECG_ITS ---
APPROVED REPORT Exam: Resting ECG HR:69 bpm ECG Measurements Heart Rate 69 AXES NH 110 P 82 QRSd 70 QRS 50 QT 426 T 12 QTc 456 Conclusion Sinus rhythm with short NH Low voltage QRS Nonspecific ST abnormality Abnormal ECG Electronically signed by : Zeus Vu, 10/19/2020 21:00:14
--- NOTE | 2020-10-19 10:18 | XR_ITS ---
PROCEDURE: XR CHEST PORTABLE CLINICAL HISTORY: cough Shortness of air COMPARISON: CR XR CHEST 2V from 09/27/2019 CR XR CHEST 2V from 02/12/2020 CR XR CHEST PORTABLE from 10/12/[address] CHEST WO CON from 10/13/2020 FINDINGS: The cardiomediastinal silhouette and pulmonary vascularity are within normal limits. Faint ground-glass attenuation present in right upper and right lower lobe which appears slightly worse. Bilateral septal thickening slightly worse on the left. No acute bony abnormalities. IMPRESSION: Slight worsening right-sided pneumonia and left-sided septal thickening Dictated by: Ron Long MD 10/19/2020 10:34 Ron Long MD in [place] 10/19/2020 10:34
[2020-10-19 10:33] LABS: Chloride 106 mmol/L (98-107)
[2020-10-19 10:34] LABS: Potassium 5.5 mmoL/L (3.5-5.1); Sodium 135 mmol/L (136-145)
[2020-10-19 10:36] LABS: Alanine Aminotransferase 181 U/L (12-78); Alkaline Phosphatase 158 U/L (38-126); Anion Gap 11.5 mEq/L (5-15); Aspartate Amino Transferase 49 U/L (17-59); Bilirubin,Total 3.3 mg/dl (0.2-1.3); Blood Urea Nitrogen 64 mg/dl (9-20); Carbon Dioxide 23 mmol/L (22.0-30.0); Creatinine Clearance Estimated 51 mL/min (50-200); Estimated Glomerular Filt Rate 48 ml/min (>60); GFR (African American) 58 ML/MIN (>60); Glucose 107 mg/dl (74-100); Lipase 99 U/L (23-300)
[2020-10-19 10:37] LABS: Albumin Level 3.2 g/dl (3.5-5.0); Calcium 8.4 mg/dl (8.4-10.2); Globulin 3.2 g/dL (1.3-3.2); Total Protein,Serum 6.4 g/dl (6.3-8.2)
[2020-10-19 10:49] LABS: Troponin I 0.07 ng/ml (0.00-0.034)
--- NOTE | 2020-10-19 10:53 | HMH.EDGENADL ---
ED Disposition Clinical Impression: Acute exacerbation of chronic obstructive airways disease, Thrombocytopenia, Acute kidney injury, Elevated liver enzymes Pneumonia Qualifiers: Pneumonia type: due to unspecified organism Laterality: right Lung location: lower lobe of lung Qualified Code(s): J18.9 - Pneumonia, unspecified organism Cirrhosis Qualifiers: Hepatic cirrhosis type: other cirrhosis Qualified Code(s): K74.69 - Other cirrhosis of liver Disposition: Admitted As Inpatient Condition on Discharge: Fair Referrals: Jan Pepper MD [Primary Care Provider] - - Critical Care Critical Care Time: No Attestation: On 10/19/20, the high probability of a clinically significant, sudden or life threatening deterioration of the following system(s) required my full and direct attention, intervention and personal management. The time I documented below is in addition to time spent performing reported procedures but includes the following listed in this critical care notation. Medical Decision Making - Medical Records Medical records reviewed: Yes: I reviewed the patient's medical records. - Toby Inquiry Pt receiving controlled substance: No Vital Signs: 10/19/20 09:45 10/19/20 10:33 10/19/20 11:11 Pulse Rate [Left Radial] 87 67 62 Respiratory Rate 21 22 20 Blood Pressure [Right Arm] 96/34 L 97/59 L 94/55 L Blood Pressure Mean [Right Arm] 54 71 68 Blood Pressure Source [Right Arm] Automatic Cuff Blood Pressure Position [Right Arm] Sitting 02 Sat by Pulse Oximetry 95 98 92 L Oxygen Delivery Method Nasal Cannula Nasal Cannula Nasal Cannula Oxygen Flow Rate (LPM) 4 4 4 10/19/20 11:33 Pulse Rate [Left Radial] 68 Respiratory Rate 22 Blood Pressure [Right Arm] 89/52 L Blood Pressure Mean [Right Arm] 64 Blood Pressure Source [Right Arm] Blood Pressure Position [Right Arm] 02 Sat by Pulse Oximetry 95 Oxygen Delivery Method Nasal Cannula Oxygen Flow Rate (LPM) 4 - Lab Data Lab Results 10/19/20 10:00: WBC 34.2 H*, RBC 3.57 L, Hgb 8.7 L, Hct 30.8 L, MCV 86.1, MCH 24.2 L, MCHC 28.1 L, RDW 19.5 H, Plt Count 22 L*, MPV 13.6 H, Neut % (Auto) 91.5 H, Lymph % (Auto) 6.7 L, Archer % (Auto) 1.1 L, Eos % (Auto) 0.7, Baso % (Auto) 5.2 H, Neut # (Auto) 31.3 H, Lymph # (Auto) 2.3, Archer # (Auto) 0.4, Eos # (Auto) 0.3, Baso # (Auto) 1.8 H 10/19/20 10:00: PT 13.4 H, INR 1.23 H, APTT 24.5 10/19/20 10:00: Sodium 135 L, Potassium 5.5 H, Chloride 106, Carbon Dioxide 23, Anion Gap 11.5, BUN 64 H, Creatinine 1.50 H, Estimated Creat Clear 51, Estimated GFR 48 L, Est GFR ( Amer) 58 L, Glucose 107 H, Calcium 8.4, Total Bilirubin 3.3 H, AST 49, ALT 181 H, Alkaline Phosphatase 158 H, Troponin I 0.07 H, Total Protein 6.4, Albumin 3.2 L, Globulin 3.2, Albumin/Globulin Ratio 1.0 L, Lipase 99 Result diagrams: 10/19/20 10:00 10/19/20 10:00 Orders (Tests/Meds): ED MEDICATIONS Generic Name Dose Route Start Last Admin Trade Name Freq PRN Reason Stop Dose Admin Ceftriaxone Sodium 1 gm/ 50 mls @ 100 mls/hr 10/19/20 11:15 10/19/20 11:44 Sodium Chloride IV 11/02/20 11:14 100 mls/hr Q24H ISIDORO Administration Protocol Doxycycline Hyclate 100 mg/ 250 mls @ 166.667 mls/hr 10/19/20 11:15 Sodium Chloride IV 11/02/20 11:14 Q12H ISIDORO Protocol ORDERS Category Date Time Status Complete Blood Count Auto Diff Stat Lab 10/19/20 10:00 Results Covid-19 IgG/IgM ([facility]) Stat Lab 10/19/20 11:49 Ordered Troponin I Q3H Lab 10/19/20 13:30 Ordered Troponin I Q3H Lab 10/19/20 16:30 Ordered ABG [Arterial Blood Gas] Stat RT 10/19/20 11:15 Ordered - Radiology Data #1 Image(s): Chest Image Reviewed: Yes I reviewed the patient's radiology results, Yes I reviewed the patient's radiology image, Yes I have reviewed radiologist's interpretation Worsening right lower lobe pneumonia - ECG Data Tracing #1 No ventricular rate of 69 bpm, normal DC interval, normal QTC. Sinus rhythm with nonspeci
[2020-10-19 10:59] LABS: Basophils # 1.8 K/mm3 (0-0.2); Basophils % 5.2 % (0.1-2.0); Eosinophils # 0.3 K/mm3 (0.0-0.4); Eosinophils % 0.7 % (0.1-12.0); Hematocrit 30.8 % (42.0-52.0); Hemoglobin 8.7 g/dL (14.1-18.0); Lymphocytes # 2.3 K/mm3 (0.7-4.5); Lymphocytes % 6.7 % (10-50); Mean Corpuscular HGB Conc 28.1 g/dL (31.8-35.4); Mean Corpuscular Hemoglobin 24.2 pg (27.0-31.2); Mean Corpuscular Volume 86.1 fl (80-94); Mean Platelet Volume 13.6 fl (7.4-10.4); Monocytes # 0.4 K/mm3 (0.1-1.0); Monocytes % 1.1 % (1.7-9.3); Neutrophils # 31.3 K/mm3 (1.8-7.8); Neutrophils % 91.5 % (37.0-80.0); Red Blood Count 3.57 M/mm3 (4.60-6.20); Red Cell Distribution Width 19.5 % (11.5-17.5); White Blood Count 34.2 K/mm3 (4.8-10.8)
[2020-10-19 11:08] LABS: MANUAL DIFFERENTIAL MANUAL DIFFERENTIAL (MANUAL DIFF); Platelet Count 22 K/mm3 (142-424)
[2020-10-19 11:14] LABS: Activated Partial Thrombo Time 24.5 seconds (23.6-34.0); INR 1.23 (0.9-1.1); Prothrombin Time 13.4 seconds (9.4-11.8)
[2020-10-19 12:03] LABS: Corrected White Blood Count 26.1 K/mm3 (4.8-10.8); Eosinophils % 1 % (0-3); Lymphocytes % 39 % (10-50); Monocytes % 20 % (2-9); Neutrophils % 19 % (42-76); Nucleated Red Blood Cells 31; Platelet Estimate Marked Decrease; Total Cells Counted 100
[2020-10-19 12:04] LABS: RBC Morphology Normal
[2020-10-19 12:28] LABS: Coronavirus 19 IgG Antibody Negative (Negative); Coronavirus 19 IgM Antibody Negative (Negative)
[2020-10-19 12:29] LABS: ABG HCO3 18.7 mmhg (22.0-26.0); ABG Oxygen Saturation 85 % (90-100); ABG PCO2 41.1 mmhg (35.0-45.0); ABG PH 7.28 mmol/L (7.35-7.45); ABG PO2 54.3 mmhg (80-100)
[2020-10-19 12:31] LABS: Allen's Test acceptable; Oxygen 2 lpm %; Source Left Radial
--- NOTE | 2020-10-19 12:44 | PC.NURSE ---
Spoke with housekeeper cleaning cooking who advised pt room was being cleaned. Pt will board in ED until then.
--- NOTE | 2020-10-19 13:04 | PC.NURSE ---
Pt resting no needs at this time
--- NOTE | 2020-10-19 13:07 | PC.NURSE ---
Ordered lunch tray
[2020-10-19 14:37] LABS: Troponin I 0.06 ng/ml (0.00-0.034)
--- NOTE | 2020-10-19 15:25 | PC.NURSE ---
Floor advised pt room was ready and someone would be down.
--- NOTE | 2020-10-19 15:38 | PC.NURSE ---
Pt arrived to floor at this time.
--- NOTE | 2020-10-19 16:28 | HMH.PHAVTE ---
[facility] Pharmacy VTE Monitoring - Patient Demographics Admission date: 10/19/20 Report Date: 10/19/20 Time: 16:28 Allergies/Adverse Reactions: Patient Allergies No Known Allergies Allergy (Verified 10/15/20 14:48) Height: 1.63 m Weight: 69.853 kg Patient Problems: Current Active Problems Thrombocytopenia (Acute) Acute kidney injury (Acute) Elevated liver enzymes (Acute) Pneumonia (Acute) Cirrhosis (Acute) Acute exacerbation of chronic obstructive airways disease (Acute) - VTE Risk Labs: VTE Related Lab Results Hgb 8.7 g/dL (14.1-18.0) L 10/19/20 10:00 Hct 30.8 % (42.0-52.0) L 10/19/20 10:00 Plt Count 22 K/mm3 (142-424) L* 10/19/20 10:00 PT 13.4 seconds (9.4-11.8) H 10/19/20 10:00 INR 1.23 (0.9-1.1) H 10/19/20 10:00 APTT 24.5 seconds (23.6-34.0) 10/19/20 10:00 BUN 64 mg/dl (9-20) H 10/19/20 10:00 Creatinine 1.50 mg/dl (0.66-1.25) H 10/19/20 10:00 Estimated Creat Clear 51 mL/min (50-200) 10/19/20 10:00 Clinical Trial Participant: No - Prophylaxis VTE Prophylaxis Ordered?: Yes Types of VTE Prophylaxis: IPCS Knee High
[2020-10-19 18:17] LABS: Troponin I 0.05 ng/ml (0.00-0.034)
[2020-10-20] VITALS (9 sets, daily range): BP systolic 89–133; BP diastolic 52–77; PULSE 56–103; RESP 18–22; TEMP 36.3–37.1; O2SAT 90–98; BMI 27.3
--- NOTE | 2020-10-20 04:40 | PC.NURSE ---
PT AWAKE AND WATCHING TV AT THIS TIME. PT HAS SLEPT AT INTERVALS. VITAL SIGNS STABLE. HR REGULAR. NO EDEMA. PT HYPOTENSIVE, BUT STATES THAT'S WHAT MY BLOOD PRESSURE RUNS. B/P CONSISTENTLY IN 80-90/50-60 RANGE. PT DENIES SOA OR DIFFICULTY BREATHING. O2 AT 2L/NC. PT REPORTS FEELING BETTER. LUNG SOUNDS DIMINISHED WITH WHEEZES NOTED, UNCHANGED FROM EARLIER ASSESSMENT. PT A&O X 4, VERY PLEASANT AND COOPERATIVE WITH CARE. IV PATENT. CALL LIGHT WITHIN REACH, WILL CONTINUE TO MONITOR.
[2020-10-20 07:10] LABS: Basophils # 2.7 K/mm3 (0-0.2); Basophils % 7.2 % (0.1-2.0); Eosinophils # 0.3 K/mm3 (0.0-0.4); Eosinophils % 0.9 % (0.1-12.0); Hematocrit 32.1 % (42.0-52.0); Hemoglobin 8.6 g/dL (14.1-18.0); Lymphocytes # 2.2 K/mm3 (0.7-4.5); Lymphocytes % 5.9 % (10-50); Mean Corpuscular HGB Conc 26.6 g/dL (31.8-35.4); Mean Corpuscular Hemoglobin 23.4 pg (27.0-31.2); Mean Corpuscular Volume 87.9 fl (80-94); Monocytes # 0.5 K/mm3 (0.1-1.0); Monocytes % 1.4 % (1.7-9.3); Neutrophils # 34.3 K/mm3 (1.8-7.8); Neutrophils % 91.9 % (37.0-80.0); Red Blood Count 3.65 M/mm3 (4.60-6.20); Red Cell Distribution Width 19.4 % (11.5-17.5); White Blood Count 37.3 K/mm3 (4.8-10.8)
[2020-10-20 07:11] LABS: Alanine Aminotransferase 138 U/L (12-78); Albumin Level 3.3 g/dl (3.5-5.0); Alkaline Phosphatase 168 U/L (38-126); Anion Gap 8.3 mEq/L (5-15); Aspartate Amino Transferase 36 U/L (17-59); Bilirubin,Total 2.5 mg/dl (0.2-1.3); Blood Urea Nitrogen 43 mg/dl (9-20); Calcium 8.5 mg/dl (8.4-10.2); Carbon Dioxide 26 mmol/L (22.0-30.0); Chloride 108 mmol/L (98-107); Creatinine Clearance Estimated 66 mL/min (50-200); Estimated Glomerular Filt Rate 62 ml/min (>60); GFR (African American) 74 ML/MIN (>60); Globulin 3.4 g/dL (1.3-3.2); Glucose 107 mg/dl (74-100); Potassium 5.3 mmoL/L (3.5-5.1); Sodium 137 mmol/L (136-145); Total Protein,Serum 6.7 g/dl (6.3-8.2)
[2020-10-20 07:28] LABS: Platelet Count 13 K/mm3 (142-424)
[2020-10-20 07:30] LABS: MANUAL DIFFERENTIAL MANUAL DIFFERENTIAL (MANUAL DIFF)
--- NOTE | 2020-10-20 07:34 | PC.NURSE ---
Dr. Pepper notified of critical platelet count of 13.
--- NOTE | 2020-10-20 08:59 | HMH.HP ---
*Admission Date: 10/19/20 *Chief complaint: weakness *History of present illness: 60-year-old male presented to the emergency department with nonspecific complaints. Patient was recently admitted to the hospital last week secondary to pneumonia, COPD as well as chronic liver issues. The patient left AGAINST MEDICAL ADVICE because he did not want to stay in the hospital. Pt states over the last few days his weakness and slight soa. Patient admitted with elevated wbc and low plts. consult hematology. [facility] History I have reviewed the patient's past medical history: Yes Medical History: Reports:: Chronic Obstructive Pulmonary Disease (COPD), Congenital Heart Disease, Coronary Artery Disease, Hyperlipidemia, Hypertension, Lung Disease, Myocardial Infarction, Palpitations Denies:: Cancer, Diabetes Mellitus Type 1, Diabetes Mellitus Type 2, Internal Pacemaker, MRSA, Seizures *Have you ever received a pneumonia vaccine?: Yes *Have you received a flu vaccine this season?: Yes Other Medical History: Reports: Anemia, Sinus Problems Other Surgeries: Yes: Cardiac Catheterization, Colonoscopy, Other (back surgery). No: Pacemaker Amputation: No Fractures: No - *Social History Last grade of school completed: 11th or 12th Smoking Status: Current every day smoker Tobacco Type: cigarettes # Packs/Day (cigarettes): 1 Alcohol Intake: never Substance Use Type: denies use *Occupational Status:: retired Housing: house Household Members: spouse, children *Travel in the last 8 weeks: None Family Hx:: Cancer, Heart Attack, Hyperlipidemia, Hypertension Review of Systems - Review of Systems Review of systems:: pertinent systems reviewed and negative unless documented below - Constitutional Reports fatigue, Reports malaise, Denies body ache(s), Denies fever(s) - Eyes Denies blurry vision - ENT Denies headache(s) - *Cardiovascular Denies chest pain with activity - *Respiratory Reports cough, Reports shortness of breath, Reports shortness of breath with activity - *Gastrointestinal Denies nausea, Denies vomiting - *Genitourinary Denies urinary frequency - *Musculoskeletal Reports muscle weakness, Denies decreased muscle mass - Integumentary/Breasts Denies rash - *Neurologic Reports weakness, Denies headache(s) - Psychiatric Denies lack of enjoyment - Endocrine Denies flushing - Hematologic/Lymphatic Denies enlarged lymph nodes - Allergic/Immunologic Denies itchy eyes Meds Home Medications Medication Instructions Recorded Confirmed Type albuterol sulfate 90 mcg/actuation 2 puff INHALATION Q4-6H PRN #18 g 06/22/20 10/19/20 Rx aerosol inhaler Fluticasone Propionate 1 spray INTRANASAL DAILY 10/12/20 10/19/20 History Loratadine 10 mg PO DAILY 10/12/20 10/19/20 History Sotalol HCl [Sotalol] 80 mg PO BID 10/12/20 10/19/20 History Spironolactone [Spironolactone 25 mg PO DAILY 10/12/20 10/19/20 History 25mg Tablet] Tiotropium [place] [Spiriva 1 puff IH DAILY 10/12/20 10/19/20 History 18mcg/puff inhaler] Furosemide [Furosemide 20mg Tab*] 20 mg PO DAILY 10/13/20 10/19/20 History Pantoprazole Sodium [Protonix 40mg 40 mg PO HS 10/13/20 10/19/20 History tablet] lisinopriL [Lisinopril 2.5mg Tab] 2.5 mg PO DAILY 10/13/20 10/19/20 History qtuvsaygthhzuhg-[id number]-FZ 5 ml PO BID PRN #118 ml 10/15/20 10/19/20 Rx 2 mg-30 mg-10 mg/5 mL oral syrup Azithromycin See Rx Instructions PO .COMPLEX 10/19/20 10/19/20 History Allergies Allergy/AdvReac Type Severity Reaction Status Date / Time No Known Allergies Allergy Verified 10/15/20 14:48 Exam Vital signs and Labs for Last 24 Hours: Temp Pulse Resp BP Pulse Ox 98.0 F 88 20 105/52 L 93 L 10/20/20 08:00 10/20/20 08:00 10/20/20 08:00 10/20/20 08:00 10/20/20 08:00 Laboratory Results - last 24 hr 10/19/20 10:00: WBC 34.2 H*, Corrected WBC 26.1 H*, RBC 3.57 L, Hgb 8.7 L, Hct 30.8 L, MCV 86.1, MCH 24.2 L, MCHC 28.1 L, RDW 19.5 H, Plt
[2020-10-20 10:27] LABS: Corrected White Blood Count 33.6 K/mm3 (4.8-10.8); Lymphocytes % 49 % (10-50); Monocytes % 23 % (2-9); Neutrophils % 10 % (42-76); Nucleated Red Blood Cells 11; Platelet Estimate Marked Decrease; RBC Morphology Normal; Total Cells Counted 100
--- NOTE | 2020-10-20 11:24 | HMH.PHAINT ---
MEDICATION RECONCILIATION COMPLETED ON PATIENT USING EXTERNAL FILL HISTORY FROM PHARMACY AND DISCHARGE SUMMARY FROM PREVIOUS ADMISSION. -DONOVAN FLORIAND
--- NOTE | 2020-10-20 15:17 | PC.NURSE ---
Routine reassessment completed. Left lung with inspiratory and expiratory wheezes. No further acute changes noted. Pt. has rested well throughout shift. Pt. denies current pain. reports having pain in epigastric area when eating or drinking. no pain in this area at this time. Pt. denies needs, will continue to monitor.
[2020-10-20 20:01] LABS: POC Glucose,Bedside 159 (70-110)
--- NOTE | 2020-10-20 21:12 | ECG_ITS ---
APPROVED REPORT Exam: Resting ECG HR:103 bpm ECG Measurements Heart Rate 103 AXES CO 126 P 106 QRSd 76 QRS 115 QT 320 T 96 QTc 419 Conclusion Sinus tachycardia Low voltage QRS Left posterior fascicular block Abnormal ECG Electronically signed by : Zeus Vu, 10/21/2020 20:56:06
--- NOTE | 2020-10-20 22:50 | PC.NURSE ---
2100 COURTESY ROUND TRASH EMPTIED AND GLOVES REFILLED
[2020-10-21] VITALS (8 sets, daily range): BP systolic 103–132; BP diastolic 49–73; PULSE 102–113; RESP 18–22; TEMP 36.6–36.8; O2SAT 88–92; BMI 27.3
--- NOTE | 2020-10-21 05:24 | PC.NURSE ---
pt had an episode of burning sensation and pain in mid sternal chest. vss at the time. telemetry and ekg with no changes. mylanta was ordered and pt has rested well since. o2 sat were running around 87% o2 was increased to 3LNC and o2 sat have been around 92%. no other complaints voiced. call light in reach. vss. will continue to monitor pt condition.
[2020-10-21 05:58] LABS: POC Glucose,Bedside 128 (70-110)
[2020-10-21 06:22] LABS: Basophils # 4.2 K/mm3 (0-0.2); Basophils % 8.7 % (0.1-2.0); Eosinophils # 0.4 K/mm3 (0.0-0.4); Eosinophils % 0.7 % (0.1-12.0); Hematocrit 29.2 % (42.0-52.0); Lymphocytes # 2.4 K/mm3 (0.7-4.5); Lymphocytes % 4.9 % (10-50); Mean Corpuscular HGB Conc 27.4 g/dL (31.8-35.4); Mean Corpuscular Hemoglobin 23.7 pg (27.0-31.2); Mean Corpuscular Volume 86.2 fl (80-94); Mean Platelet Volume 8.5 fl (7.4-10.4); Monocytes # 0.6 K/mm3 (0.1-1.0); Monocytes % 1.2 % (1.7-9.3); Neutrophils # 44.8 K/mm3 (1.8-7.8); Neutrophils % 93.2 % (37.0-80.0); Red Blood Count 3.39 M/mm3 (4.60-6.20); Red Cell Distribution Width 19.8 % (11.5-17.5)
[2020-10-21 06:26] LABS: Anion Gap 8.2 mEq/L (5-15); Blood Urea Nitrogen 24 mg/dl (9-20); Calcium 8.6 mg/dl (8.4-10.2); Carbon Dioxide 27 mmol/L (22.0-30.0); Chloride 108 mmol/L (98-107); Creatinine Clearance Estimated 80 mL/min (50-200); Estimated Glomerular Filt Rate 86 ml/min (>60); GFR (African American) 104 ML/MIN (>60); Glucose 117 mg/dl (74-100); Potassium 5.2 mmoL/L (3.5-5.1); Sodium 138 mmol/L (136-145)
[2020-10-21 06:49] LABS: White Blood Count 48.1 K/mm3 (4.8-10.8)
[2020-10-21 06:50] LABS: Platelet Count 14 K/mm3 (142-424)
[2020-10-21 06:52] LABS: MANUAL DIFFERENTIAL MANUAL DIFFERENTIAL (MANUAL DIFF)
--- NOTE | 2020-10-21 06:52 | PC.NURSE ---
0600 COURTESY ROUND TRASH EMPTIED AND WATER REFILLED
--- NOTE | 2020-10-21 07:25 | PC.NURSE ---
REPORT RECEIVED FROM Deepika KAMINSKI RN
--- NOTE | 2020-10-21 08:16 | PC.NURSE ---
PT ASSESSED AT THIS TIME. PT HAS A COUGH THAT IS NONPRODUCTIVE AND IS INTERMITTENT. PT BECOMES SOB EASILY EVEN W/ POSITION CHANGES. PT DENIES ANY PAIN. BILATERAL LUNG SOUNDS ARE DIMINISHED. NO EDEMA NOTED. PT SKIN IS THIN AND HAS SCATTERED BRUISING. PT C/O THAT WHEN EATING OR DRINKING IT FEELS IF IT HAS A HARD TIME GOING ALL THE WAY DOWN TO HIS STOMACH. PT DENIES CHOKING ON FOOD. PT REQUESTED NEB TX AND RN CALLED RT AT THIS TIME. WILL CONTINUE TO OBSERVE. LAYNE WAGGONER.
[2020-10-21 09:01] LABS: Lymphocytes % 6 % (10-50); Monocytes % 2 % (2-9); Myelocytes % 15 (0-1); Neutrophils % 33 % (42-76); Total Cells Counted 100
[2020-10-21 09:02] LABS: Corrected White Blood Count 41.8 K/mm3 (4.8-10.8); Hypochromasia 3+; Nucleated Red Blood Cells 15; Platelet Estimate Marked Decrease; Stomatocytes 3+
--- NOTE | 2020-10-21 09:28 | HMH.ACPN2 ---
Internal Medicine - PN: Subj *Date: 10/21/20 *Time: 13:07 Exam Vital signs and Labs for Last 24 Hours: Temp Pulse Resp BP Pulse Ox 98.0 F 111 H 20 116/72 89 L 10/21/20 08:00 10/21/20 08:33 10/21/20 08:00 10/21/20 08:00 10/21/20 08:00 Laboratory Results - last 24 hr 10/20/20 06:39: Corrected WBC 33.6 H*, Total Counted 100, Neutrophils % (Manual) 10 L, Band Neutrophils % 2.0, Lymphocytes % (Manual) 49, Monocytes % (Manual) 23 H, Metamyelocytes % 1.0, Blast Cells % 15.0, Nucleated RBCs 11, Platelet Estimate Marked decrease, RBC Morphology Normal 10/20/20 19:49: POC Glucose 159 H 10/21/20 05:50: POC Glucose 128 H 10/21/20 05:57: WBC 48.1 H* D, Corrected WBC 41.8 H*, RBC 3.39 L, Hgb 8.0 L, Hct 29.2 L, MCV 86.2, MCH 23.7 L, MCHC 27.4 L, RDW 19.8 H, Plt Count 14 L*, MPV 8.5, Neut % (Auto) 93.2 H, Lymph % (Auto) 4.9 L, [place] % (Auto) 1.2 L, Eos % (Auto) 0.7, Baso % (Auto) 8.7 H, Neut # (Auto) 44.8 H, Lymph # (Auto) 2.4, [place] # (Auto) 0.6, Eos # (Auto) 0.4, Baso # (Auto) 4.2 H, Total Counted 100, Neutrophils % (Manual) 33 L, Band Neutrophils % 10.0 H, Lymphocytes % (Manual) 6 L, Monocytes % (Manual) 2, Metamyelocytes % 34.0 H, Myelocytes % 15 H, Nucleated RBCs 15, Platelet Estimate Marked decrease, Hypochromasia 3+, Stomatocytes 3+ 10/21/20 05:57: Sodium 138, Potassium 5.2 H, Chloride 108 H, Carbon Dioxide 27, Anion Gap 8.2, BUN 24 H D, Creatinine 0.90 D, Estimated Creat Clear 80, Estimated GFR 86, Est GFR ( Amer) 104 D, Glucose 117 H, Calcium 8.6 I & O for Last 24 hours: Intake & Output 10/18/20 10/19/20 10/20/20 10/21/20 23:59 23:59 23:59 23:59 Intake Total 240 / 600 1560 / 1560 2304 / 2304 Output Total 2220 / 2595 375 / 375 Balance 240 / 600 -660 / -1035 1928 / 192 Weight 154 lb 160 lb 1 oz 160 lb 4 oz Assessment and Plan (1) Cirrhosis Status: Acute Qualifiers: Hepatic cirrhosis type: other cirrhosis Qualified Code(s): K74.69 - Other cirrhosis of liver Category: Medical Code(s): K74.60 - Unspecified cirrhosis of liver (2) Elevated liver enzymes Status: Acute Category: Medical Code(s): R74.8 - Abnormal levels of other serum enzymes (3) Thrombocytopenia Status: Acute Category: Medical Code(s): D69.6 - Thrombocytopenia, unspecified (4) Leukocytosis Status: Acute Qualifiers: Leukocytosis type: unspecified Qualified Code(s): D72.829 - Elevated white blood cell count, unspecified Category: Medical Code(s): D72.829 - Elevated white blood cell count, unspecified (5) CAD (coronary artery disease) Status: Chronic Qualifiers: Coronary Disease-Associated Artery/Lesion type: [place] artery [place] vs. transplanted heart: [place] heart Associated angina: without angina Qualified Code(s): I25.10 - Atherosclerotic heart disease of [place] coronary artery without angina pectoris Category: Medical Code(s): I25.10 - Atherosclerotic heart disease of [place] coronary artery without angina pectoris (6) Carotid artery stenosis Status: Chronic Qualifiers: Laterality: bilateral Qualified Code(s): I65.23 - Occlusion and stenosis of bilateral carotid arteries Category: Medical Code(s): I65.29 - Occlusion and stenosis of unspecified carotid artery (7) HLD (hyperlipidemia) Status: Chronic Qualifiers: Hyperlipidemia type: other hyperlipidemia Qualified Code(s): E78.49 - Other hyperlipidemia Category: Medical Code(s): E78.5 - Hyperlipidemia, unspecified (8) Hypertension Status: Chronic Qualifiers: Hypertension type: essential hypertension Qualified Code(s): I10 - Essential (primary) hypertension Category: Medical Code(s): I10 - Essential (primary) hypertension (9) Tobacco abuse Status: Chronic Category: Medical Code(s): Z72.0 - Tobacco use (10) COPD (chronic obstructive pulmonary disease) Status: Chronic Qualifiers: COPD type: unspecified COPD Qualified Code(s): J44.9 - Chronic obstructi
--- NOTE | 2020-10-21 09:30 | CA_ITS ---
APPROVED REPORT EXAM: Comprehensive 2D, Doppler, and color-flow Echocardiogram Supervisor Insecticide: Jeni De La Cruz RCS, RVS Ht: 5 ft 4 in Wt: 160lbs BSA: 1.78 BP: 116/72 mmHg Indications: Pneumonia, COPD, Afib, CAD, PHTN 2D Dimensions IVSd 0.96 cm LVEF (Visual) 52.90 % PWd 0.87 cm LA Volume 49.50 mL LVDd 4.20 cm LA Volume Index 27.20 mL/m2 (M/F) 16-34 LVDs 3.07 cm Aortic Root 2.86 cm Left Atrium 3.41 cm LVOT 1.94 cm (M/F) 1.5-2.5 M-Mode Dimensions LA Diam 3.66 cm (1.9-4.0) Ao Diam 3.16 cm (2.0-3.7) EPSs 0.61 cm LV Diastology E Decel Time 203.00 (160-240 msec) E/A Ratio 2.03 MED E' 9.40 (< 7 cm/sec) MED A' 14.30 cm/s E'/MED E' Ratio 16.12 (>14) LAT E' 10.40 (<10 cm/sec) LAT A' 14.40 cm/s E/LAT E' Ratio 14.57 (>14) Pulm Vein s 51.00 cm/sec Pulm Vein d 29.00 cm/sec Ar-A Duration 203.00 msec Aortic Valve AoV Peak [place]. 180.00 (50-130 cm/s) AO Peak GR. 12.90 mmHg AO Mean GR. 6.50 (<5 mmHg) AO VTI 30.84 (18-25 cm) Mitral Valve MV E Max [place]. 151.00 (40-130 cm/s) MV A Velocity 74.00 (40-130 cm/s) E/A Ratio 2.03 MV Decel. Time 203.00 (160-240 ms) MV PHT 60.00 ms Pulmonary Valve PV Peak Velocity 108.00 (50-150 cm/s) Tricuspid Valve TR P. Velocity 349.00 cm/s RAP Estimate 10.00 mmHg RVSP 58.70 mmHg Left Ventricle Left atrium is mildly enlarged, left ventricle is normal size, mild concentric left ventricular hypertrophy, visually estimated ejection fraction 55% with no regional wall motion abnormality, diastolic parameters are inconclusive. Right Ventricle Right atrium and right ventricle moderately enlarged with normal contractility. Aortic Valve Aortic valve is minimally thickened and fibrosed, there is no aortic stenosis or aortic insufficiency. Mitral Valve Mitral valve is grossly normal, there is mild mitral regurgitation. Tricuspid Valve Tricuspid valve is grossly normal, there is moderate tricuspid regurgitation, calculated right ventricular systolic pressure is 58 mmHg. Pulmonic Valve Pulmonic valve is poorly visualized. Great Vessels Aortic root is normal size. Pericardium No significant pericardial effusion noted. Conclusion 1. Normal left ventricular size, mild concentric left ventricular hypertrophy, visually estimated ejection fraction 55% with no regional wall motion abnormality, diastolic parameters are inconclusive. 2. Moderately enlarged right atrium and right ventricle, contractility of the right ventricle is normal. 3. Mild mitral and moderate tricuspid regurgitation, calculated right ventricular systolic pressure is 58 mmHg. 4. No significant pericardial effusion noted. Electronically signed by : Arturo Tatum, 10/21/2020 14:51:04
--- NOTE | 2020-10-21 09:37 | FL_ITS ---
PROCEDURE: FL UPPER GI ESOPHAGUS W/AIR CLINICAL INDICATION: COMPARISON: No exams were available for comparison TECHNIQUE: FLUOROSCOPY TIME : Dysphagia FINDINGS: The esophagus, stomach, and duodenum have an unremarkable appearance.There is no evidence of hiatal hernia. No ulcer or mass evident. No mucosal abnormalities apparent. There is normal peristalsis. The duodenal C-loop is nondisplaced. IMPRESSION: Negative barium swallow and upper GI. Dictated by: Ron Long MD 10/21/2020 14:33 Ron Long MD in [place] 10/21/2020 14:33
--- NOTE | 2020-10-21 09:51 | PC.NURSE ---
PHYLLIS NOTIFIED AT THIS TIME THAT PT MEETS CRITERIA FOR SEVERE SEPSIS RISK. STATES THAT [facility] IS GOING TO REVIEW PT'S CHART WITH DR. ONEAL. IF NEW ORDERS RN WILL BE NOTIFIED.
--- NOTE | 2020-10-21 10:06 | FL_ITS ---
PROCEDURE: FL BARIUM SWALLOW MODIFIED CLINICAL INDICATION: Dysphagia COMPARISON: No exams were available for comparison TECHNIQUE: Patient administered varying consistencies of barium contrast, while viewed in lateral position under real-time fluoroscopy with cine recording. FLUOROSCOPY TIME:3 minutes and 27 seconds The study was performed in conjunction with speech pathologist. Please see that report & recommendations. FINDINGS: Patient was given varying consistencies of barium. No evidence of a stable penetration or tracheal aspiration. No significant residual. There was some difficulty in mastication and early spillage with mechanical soft and mild residual with mechanical.. IMPRESSION: No aspiration or penetration. There was some early spillage with mechanical soft and mild residual with mechanical soft. Please see speech pathologist report and recommendations. Dictated by: Ron Long MD 10/21/2020 16:11 Ron Long MD in [place] 10/21/2020 16:11
--- NOTE | 2020-10-21 10:14 | PC.NURSE ---
Neil STRATTON CALLED RN AT THIS TIME TALKED TO RN STATED THAT CONSULT WITH DR. MURILLO IS AWARE THAT PT IS VERY ILL.
--- NOTE | 2020-10-21 11:22 | PC.NURSE ---
Cup given to pt with instruction and repeated for understanding.
[2020-10-21 12:12] LABS: POC Glucose,Bedside 119 (70-110)
--- NOTE | 2020-10-21 12:18 | HMH.CONS ---
*Admission Date: 10/19/20 *Reason for consult:: leukocytosis and thrombocytopenia *History of present illness: 60 yo presents with sob and chest pain. he was admitted last week for pna and copd and left ama. labs reveal leukocytosis wbc 38-47, anemia hgb 8.0, and thrombocytopenia with plts 15K. on diff today there is noted 15% blasts. pt reports he is sob. he does not feel well. per chart there is a h/o cirrhosis. pt and son were at bedside. [facility] History Medical History: Reports:: Chronic Obstructive Pulmonary Disease (COPD), Congenital Heart Disease, Coronary Artery Disease, Hyperlipidemia, Hypertension, Lung Disease, Myocardial Infarction, Palpitations Denies:: Cancer, Diabetes Mellitus Type 1, Diabetes Mellitus Type 2, Internal Pacemaker, MRSA, Seizures *Have you ever received a pneumonia vaccine?: Yes *Have you received a flu vaccine this season?: Yes Other Medical History: Reports: Anemia, Sinus Problems Other Surgeries: Yes: Cardiac Catheterization, Colonoscopy, Other (back surgery). No: Pacemaker Amputation: No Fractures: No - *Social History Last grade of school completed: 11th or 12th Smoking Status: Current every day smoker Tobacco Type: cigarettes # Packs/Day (cigarettes): 1 Alcohol Intake: never Substance Use Type: denies use *Occupational Status:: retired Housing: house Household Members: spouse, children *Travel in the last 8 weeks: None Family Hx:: Cancer, Heart Attack, Hyperlipidemia, Hypertension Review of Systems - Constitutional Reports fatigue, Reports lack of energy, Reports weakness - *Cardiovascular Reports chest pain, Reports shortness of breath - *Respiratory Reports cough, Reports shortness of breath - *Neurologic Reports weakness, Denies headache(s) - Hematologic/Lymphatic Reports easy bruising Meds Home Medications Medication Instructions Recorded Confirmed Type Fluticasone Propionate 1 spray NS DAILY 10/12/20 10/20/20 History Loratadine 10 mg PO DAILY 10/12/20 10/19/20 History Sotalol HCl [Sotalol] 80 mg PO BID 10/12/20 10/19/20 History Spironolactone [Spironolactone 25 mg PO DAILY 10/12/20 10/19/20 History 25mg Tablet] Tiotropium [place] [Spiriva 1 puff IH DAILY 10/12/20 10/19/20 History 18mcg/puff inhaler] Furosemide [Furosemide 20mg Tab*] 20 mg PO DAILY 10/13/20 10/19/20 History Pantoprazole Sodium [Protonix 40mg 40 mg PO HS 10/13/20 10/19/20 History tablet] lisinopriL [Lisinopril 2.5mg Tab] 2.5 mg PO DAILY 10/13/20 10/19/20 History kedbfkavfvukplm-yveeicyxozysxsy-HV 5 ml PO BID PRN #118 ml 10/15/20 10/19/20 Rx 2 mg-30 mg-10 mg/5 mL oral syrup Azithromycin See Rx Instructions PO .COMPLEX 10/19/20 10/19/20 History Albuterol Sulfate [Proventil Hfa] 2 puff IH Q4-6H PRN 10/20/20 10/20/20 History Allergies Allergy/AdvReac Type Severity Reaction Status Date / Time No Known Allergies Allergy Verified 10/15/20 14:48 Exam Vital signs and Labs for Last 24 Hours: Temp Pulse Resp BP Pulse Ox 98.1 F 102 H 18 117/69 89 L 10/21/20 11:34 10/21/20 11:34 10/21/20 11:34 10/21/20 11:34 10/21/20 11:34 Laboratory Results - last 24 hr 10/20/20 19:49: POC Glucose 159 H 10/21/20 05:50: POC Glucose 128 H 10/21/20 05:57: WBC 48.1 H* D, Corrected WBC 41.8 H*, RBC 3.39 L, Hgb 8.0 L, Hct 29.2 L, MCV 86.2, MCH 23.7 L, MCHC 27.4 L, RDW 19.8 H, Plt Count 14 L*, MPV 8.5, Neut % (Auto) 93.2 H, Lymph % (Auto) 4.9 L, [place] % (Auto) 1.2 L, Eos % (Auto) 0.7, Baso % (Auto) 8.7 H, Neut # (Auto) 44.8 H, Lymph # (Auto) 2.4, [place] # (Auto) 0.6, Eos # (Auto) 0.4, Baso # (Auto) 4.2 H, Total Counted 100, Neutrophils % (Manual) 33 L, Band Neutrophils % 10.0 H, Lymphocytes % (Manual) 6 L, Monocytes % (Manual) 2, Metamyelocytes % 34.0 H, Myelocytes % 15 H, Nucleated RBCs 15, Platelet Estimate Marked decrease, Hypochromasia 3+, Stomatocytes 3+ 10/21/20 05:57: Sodium 138, Potassium 5.2 H, Chloride 108 H, Carbon Dioxide 27, Anion Gap 8.2, BUN 24 H D, Creatinine 0.90 D, Estim
--- NOTE | 2020-10-21 13:51 | HMH.DCSUM ---
General - General Admission date:: 10/19/20 Discharge date: 10/21/20 HPI HPI: 60-year-old male presented to the emergency department with nonspecific complaints. Patient was recently admitted to the hospital last week secondary to pneumonia, COPD as well as chronic liver issues. The patient left AGAINST MEDICAL ADVICE because he did not want to stay in the hospital. Pt states over the last few days his weakness and slight soa. Patient admitted with elevated wbc and low plts. consult hematology. Hospital Course Hospital Course: 60-year-old male presented to the emergency department with nonspecific complaints. Patient was recently admitted to the hospital last week secondary to pneumonia, COPD as well as chronic liver issues. The patient left AGAINST MEDICAL ADVICE because he did not want to stay in the hospital. Pt states over the last few days his weakness and slight soa. Patient admitted with elevated wbc and low plts. consult hematology. 10/19/20 CXR: FINDINGS: The cardiomediastinal silhouette and pulmonary vascularity are within normal limits. Faint ground-glass attenuation present in right upper and right lower lobe which appears slightly worse. Bilateral septal thickening slightly worse on the left. No acute bony abnormalities. IMPRESSION: Slight worsening right-sided pneumonia and left-sided septal thickening Dictated by: Ethan, 60-year-old male patient lying in bed he is short of breath at present, and reports he was up to side of bed urinating. He reports it takes him a little while for shortness of breath to exertion. Today he also voices complaints of unable to swallow solids and liquids for several months. He reports he feels like they are catching in his throat and has to double and triple swallow at times, he reports his does not happen with every swallow but it does happen it virtually every meal. We will order a echo today for continued shortness of breath We will order an upper GI and a GI consult for possible EGD tomorrow Lab work today white blood cell count 48.1, hemoglobin 8.0, hematocrit 29.2, platelets 14, metamyelocytes 34 myelocytes 15. Sodium 138, potassium 5.2, BUN 24, and creatinine 0.9 Dr. Nye to see today Onc has seen and Rec: pt admitted with sob/chest pain. being treated for pna and copd exacerbation. on rocephin/doxycycline. counts concerning for primary bone marrow process and my concern with 15% blasts noted on diff we are dealing with leukemia ie either acute leukemia or perhaps cml in blast phase. he needs urgent bone marrow and eval from [facility]. I have recommended referral to . family and pt are agreeable. d/w Dr. Swift. Plan: Transfer to [facility] in [place], [place] when bed available Objective Vital signs: Temp Pulse Resp BP Pulse Ox 98.1 F 102 H 18 117/69 89 L 10/21/20 11:34 10/21/20 11:34 10/21/20 11:34 10/21/20 11:34 10/21/20 11:34 mild distress, chronically ill appearing - *Routine HEENT Exam Head: Present: normocephalic Eye: Present: EOMI ENT: Present: mucous membranes dry - *Routine Neck Exam Present: trachea midline. Absent: tracheal deviation - *Routine Respiratory Exam Present: rhonchi, wheezes. Absent: accessory muscle use - *Routine Cardiovascular Exam Present: RRR. Absent: bradycardia - *Routine Abdominal Exam Present: soft, normoactive bowel sounds. Absent: tenderness, firm - *Routine Extremities Exam Present: full ROM, pulses intact, normal capillary refill. Absent: cyanosis, clubbing, calf tenderness - *Routine Skin Exam Present: intact, dry, warm. Absent: cyanosis, erythema - *Routine Neurological Exam Present: alert, oriented X3. Absent: altered mental status - Routine Psychiatric Exam Present: normal affect, normal thought process, cooperative. Absent: auditory hallucinations, visual hallucinations Results Labs on day of discharge: Labs fro
--- NOTE | 2020-10-21 14:19 | HMH.SLMBS2 ---
Speech & Language Evaluation Speech/Language Mod Barium Swallow Start: 10/21/20 14:05 Freq: once Status: Complete Protocol: Document 10/21/20 14:05 MARIANELA (Rec: 10/21/20 14:19 MARIANELA [id number]) General Information General Current Food Consistancy NPO Dentition Good Dentition Oxygen Status Nasal Cannula Facial Symmetry Symmetrical Patient Orientation Person,Place,Time Ability to Follow Directions Excellent Communication Ability No Impairment MBS Recommendations Diet Dietary Recommendations Regular,Thin Liquids Treatment/Strategies Strategy/Precaution Recommend Sitting Upright (90 deg), Double Swallow,Small Bites and Sips,Alternate Liquids/Solids Referrals/Other Recommended Referrals GI Consult Mod Barium Swallow Impressions Summary and Impressions Oral Phase Impression Minimal Impairment Oral Phase Summary Due to lack of dentition, Mr. Bruner required the use of munching food to get food prepared for swallow. He exhibited minimal lingual residue that required a second (dry) swallow. Pharyngeal Phase Impression Mild Impairment Pharyngeal Phase Summary Mr. Banks exhibited premature spillage into laryngeal vesibule with mechanical soft and mixed consistency. It was cleared with a dry swallow. Speech/Language MBS Assessment/Goals/Plan Assessment Date of Evaluation: 10/21/20 Evaluation Type Initial Certification Does Patient Qualify for Service No Qualify/Failure Comment Compensatory strategies reviewed with patient. Plan Pt/Guardian verbally ack understanding Yes of dx/prognosis/goals G -code Required No Mod Barium Swallow Setup Exam Setup Radiologist Ron Long Level of Consciousness Awake,Alert,Appropriate Position (degrees) 90 Mod Barium Swallow-Lat View Textures Lateral View Food Presentation Thin Liquid via Spoon,Thin Liquid via Cup,Thin Liquid via Straw,Pureed Food- Thick, Ground Food- Regular,Barium Tablet,Regular Food,Pudding Oral Phase Labial Closure No Impairment (WFL) Bolus Formation Pooling L/R No Impairment (WFL) Bolus Formation under Tongue No Impairment (WFL) Bolus Formation Scattered Loss No Impairment (WFL)
[2020-10-21 17:27] LABS: POC Glucose,Bedside 140 (70-110)
--- NOTE | 2020-10-21 18:35 | PC.NURSE ---
PT SPO2 88% ON 4L NC. WILL CONTINUE TO OBSERVE.
--- NOTE | 2020-10-21 19:51 | PC.NURSE ---
REPORT GIVEN TO Ziyad GARCIA RN
[2020-10-21 22:40] LABS: POC Glucose,Bedside 134 (70-110)
--- NOTE | 2020-10-21 23:56 | PC.NURSE ---
2100 COURTESY ROUND PT AWAKE. TRASH AND LINENS EMPTIED . PT STATED NO OTHER NEEDS
[2020-10-22] VITALS (8 sets, daily range): BP systolic 78–115; BP diastolic 54–72; PULSE 83–114; RESP 19–28; TEMP 36.6–37.1; O2SAT 85–93; BMI 30.7
--- NOTE | 2020-10-22 04:30 | PC.NURSE ---
PT RESTED FAIR,RESP.RATE HAS BEEN ELEVATED ALONG WITH PEIRCED LIP BREATHING,PT REMAINS ON 4 LITERS OF OXYGEN PER NC WHICH IS HUMIDIFIED,LUNGS -WHEEZING NOTED WITH INSPIRTORY AND EXSPIRTORY,NORMAL BOWEL SOUNDS X4 QUADS,.PT USING A URINAL-DARK YELLOW URINE NOTED
[2020-10-22 06:23] LABS: POC Glucose,Bedside 117 (70-110)
[2020-10-22 07:11] LABS: Anion Gap 6.8 mEq/L (5-15); Blood Urea Nitrogen 16 mg/dl (9-20); Calcium 8.6 mg/dl (8.4-10.2); Carbon Dioxide 29 mmol/L (22.0-30.0); Chloride 110 mmol/L (98-107); Creatinine Clearance Estimated 90 mL/min (50-200); Estimated Glomerular Filt Rate 115 ml/min (>60); GFR (African American) 139 ML/MIN (>60); Glucose 113 mg/dl (74-100); Potassium 4.8 mmoL/L (3.5-5.1); Sodium 141 mmol/L (136-145)
[2020-10-22 07:54] LABS: Basophils # 3.9 K/mm3 (0-0.2); Basophils % 7.3 % (0.1-2.0); Eosinophils # 0.5 K/mm3 (0.0-0.4); Eosinophils % 0.8 % (0.1-12.0); Hematocrit 26.9 % (42.0-52.0); Lymphocytes # 2.7 K/mm3 (0.7-4.5); Mean Corpuscular HGB Conc 26.7 g/dL (31.8-35.4); Mean Corpuscular Hemoglobin 23.2 pg (27.0-31.2); Mean Corpuscular Volume 86.9 fl (80-94); Mean Platelet Volume 14.8 fl (7.4-10.4); Monocytes # 0.6 K/mm3 (0.1-1.0); Neutrophils # 49.8 K/mm3 (1.8-7.8); Neutrophils % 93.2 % (37.0-80.0); Red Blood Count 3.09 M/mm3 (4.60-6.20); Red Cell Distribution Width 19.4 % (11.5-17.5)
[2020-10-22 07:58] LABS: White Blood Count 53.5 K/mm3 (4.8-10.8)
[2020-10-22 07:59] LABS: Hemoglobin 7.2 g/dL (14.1-18.0); Platelet Count 22 K/mm3 (142-424)
[2020-10-22 08:01] LABS: MANUAL DIFFERENTIAL MANUAL DIFFERENTIAL (MANUAL DIFF)
--- NOTE | 2020-10-22 08:30 | HMH.ACPN ---
Internal Medicine - PN: Subj *Date: 10/22/20 *Time: 08:30 Exam Vital signs and Labs for Last 24 Hours: Temp Pulse Resp BP Pulse Ox 97.9 F 111 H 24 103/66 L 89 L 10/22/20 08:00 10/22/20 08:00 10/22/20 08:00 10/22/20 08:00 10/22/20 08:00 Laboratory Results - last 24 hr 10/21/20 05:57: Corrected WBC 41.8 H*, Total Counted 100, Neutrophils % (Manual) 33 L, Band Neutrophils % 10.0 H, Lymphocytes % (Manual) 6 L, Monocytes % (Manual) 2, Metamyelocytes % 34.0 H, Myelocytes % 15 H, Nucleated RBCs 15, Platelet Estimate Marked decrease, Hypochromasia 3+, Stomatocytes 3+ 10/21/20 11:30: POC Glucose 119 H 10/21/20 16:39: POC Glucose 140 H 10/21/20 22:32: POC Glucose 134 H 10/22/20 06:08: POC Glucose 117 H 10/22/20 06:11: WBC 53.5 H*, RBC 3.09 L, Hgb 7.2 L*, Hct 26.9 L, MCV 86.9, MCH 23.2 L, MCHC 26.7 L, RDW 19.4 H, Plt Count 22 L* D, MPV 14.8 H, Neut % (Auto) 93.2 H, Lymph % (Auto) 5.0 L, [place] % (Auto) 1.0 L, Eos % (Auto) 0.8, Baso % (Auto) 7.3 H, Neut # (Auto) 49.8 H, Lymph # (Auto) 2.7, [place] # (Auto) 0.6, Eos # (Auto) 0.5 H, Baso # (Auto) 3.9 H 10/22/20 06:11: Sodium 141, Potassium 4.8, Chloride 110 H, Carbon Dioxide 29, Anion Gap 6.8, BUN 16 D, Creatinine 0.70 D, Estimated Creat Clear 90, Estimated GFR 115, Est GFR ( Amer) 139 D, Glucose 113 H, Calcium 8.6 I & O for Last 24 hours: Intake & Output 10/19/20 10/20/20 10/21/20 10/22/20 23:59 23:59 23:59 23:59 Intake Total 240 / 600 1560 / 1560 3024 / 3024 494 / 494 Output Total 2220 / 2595 600 / 800 200 / 200 Balance 240 / 600 -660 / -1035 2424 / 2224 294 / 294 Weight 69.853 kg 72.603 kg 72.688 kg 81.647 kg Microbiology Reports for the Last 24 Hours: Microbiology 10/21/20 16:40 Sputum - Expectorated Sputum Gram Stain - Final 10/21/20 16:40 Sputum - Expectorated Sputum Sputum Culture - Final Assessment and Plan (1) Cirrhosis Status: Acute Qualifiers: Hepatic cirrhosis type: other cirrhosis Qualified Code(s): K74.69 - Other cirrhosis of liver Category: Medical Code(s): K74.60 - Unspecified cirrhosis of liver (2) Elevated liver enzymes Status: Acute Category: Medical Code(s): R74.8 - Abnormal levels of other serum enzymes (3) Thrombocytopenia Status: Acute Category: Medical Code(s): D69.6 - Thrombocytopenia, unspecified (4) Leukocytosis Status: Acute Qualifiers: Leukocytosis type: unspecified Qualified Code(s): D72.829 - Elevated white blood cell count, unspecified Category: Medical Code(s): D72.829 - Elevated white blood cell count, unspecified (5) CAD (coronary artery disease) Status: Chronic Qualifiers: Coronary Disease-Associated Artery/Lesion type: [place] artery [place] vs. transplanted heart: [place] heart Associated angina: without angina Qualified Code(s): I25.10 - Atherosclerotic heart disease of [place] coronary artery without angina pectoris Category: Medical Code(s): I25.10 - Atherosclerotic heart disease of [place] coronary artery without angina pectoris (6) Carotid artery stenosis Status: Chronic Qualifiers: Laterality: bilateral Qualified Code(s): I65.23 - Occlusion and stenosis of bilateral carotid arteries Category: Medical Code(s): I65.29 - Occlusion and stenosis of unspecified carotid artery (7) HLD (hyperlipidemia) Status: Chronic Qualifiers: Hyperlipidemia type: other hyperlipidemia Qualified Code(s): E78.49 - Other hyperlipidemia Category: Medical Code(s): E78.5 - Hyperlipidemia, unspecified (8) Hypertension Status: Chronic Qualifiers: Hypertension type: essential hypertension Qualified Code(s): I10 - Essential (primary) hypertension Category: Medical Code(s): I10 - Essential (primary) hypertension (9) Tobacco abuse Status: Chronic Category: Medical Code(s): Z72.0 - Tobacco use (10) COPD (chronic obstructive pulmonary disease) Status: Chronic Qualifiers: COPD type: unspecified [employer]
--- NOTE | 2020-10-22 08:47 | HMH.ACPN2 ---
Internal Medicine - PN: Subj *Date: 10/22/20 *Time: 09:18 Interval history: 60-year-old man sitting up in bed in no respiratory distress. He reports he is feeling better with less short of breath but still remains short of breath when getting up to side of bed to urinate. Oxygen saturations 90% on 3 L per nasal cannula. Explained to patient we are waiting for an open bed at to transfer for heme-onc services, he verbalizes understanding. GI to see today Exam Vital signs and Labs for Last 24 Hours: Temp Pulse Resp BP Pulse Ox 97.9 F 111 H 24 103/66 L 89 L 10/22/20 08:00 10/22/20 08:00 10/22/20 08:00 10/22/20 08:00 10/22/20 08:00 Laboratory Results - last 24 hr 10/21/20 05:57: Corrected WBC 41.8 H*, Total Counted 100, Neutrophils % (Manual) 33 L, Band Neutrophils % 10.0 H, Lymphocytes % (Manual) 6 L, Monocytes % (Manual) 2, Metamyelocytes % 34.0 H, Myelocytes % 15 H, Nucleated RBCs 15, Platelet Estimate Marked decrease, Hypochromasia 3+, Stomatocytes 3+ 10/21/20 11:30: POC Glucose 119 H 10/21/20 16:39: POC Glucose 140 H 10/21/20 22:32: POC Glucose 134 H 10/22/20 06:08: POC Glucose 117 H 10/22/20 06:11: WBC 53.5 H*, RBC 3.09 L, Hgb 7.2 L*, Hct 26.9 L, MCV 86.9, MCH 23.2 L, MCHC 26.7 L, RDW 19.4 H, Plt Count 22 L* D, MPV 14.8 H, Neut % (Auto) 93.2 H, Lymph % (Auto) 5.0 L, [place] % (Auto) 1.0 L, Eos % (Auto) 0.8, Baso % (Auto) 7.3 H, Neut # (Auto) 49.8 H, Lymph # (Auto) 2.7, [place] # (Auto) 0.6, Eos # (Auto) 0.5 H, Baso # (Auto) 3.9 H 10/22/20 06:11: Sodium 141, Potassium 4.8, Chloride 110 H, Carbon Dioxide 29, Anion Gap 6.8, BUN 16 D, Creatinine 0.70 D, Estimated Creat Clear 90, Estimated GFR 115, Est GFR ( Amer) 139 D, Glucose 113 H, Calcium 8.6 I & O for Last 24 hours: Intake & Output 10/19/20 10/20/20 10/21/20 10/22/20 23:59 23:59 23:59 23:59 Intake Total 240 / 600 1560 / 1560 3024 / 3024 494 / 494 Output Total 2220 / 2595 600 / 800 200 / 200 Balance 240 / 600 -660 / -1035 2424 / 2224 294 / 294 Weight 154 lb 160 lb 1 oz 160 lb 4 oz 180 lb Microbiology Reports for the Last 24 Hours: Microbiology 10/21/20 16:40 Sputum - Expectorated Sputum Gram Stain - Final 10/21/20 16:40 Sputum - Expectorated Sputum Sputum Culture - Final - Constitutional no acute distress, chronically ill appearing - *Routine HEENT Exam Head: Present: normocephalic Eye: Present: EOMI ENT: Present: mucous membranes dry - *Routine Neck Exam Present: trachea midline. Absent: tracheal deviation - *Routine Respiratory Exam Present: wheezes. Absent: accessory muscle use - *Routine Cardiovascular Exam Present: RRR. Absent: bradycardia - *Routine Abdominal Exam Present: soft, normoactive bowel sounds. Absent: tenderness, firm - *Routine Extremities Exam Present: full ROM, pulses intact. Absent: cyanosis, clubbing, calf tenderness - *Routine Skin Exam Present: intact, dry, warm. Absent: cyanosis, erythema - *Routine Neurological Exam Present: alert, oriented X3. Absent: altered mental status - Routine Psychiatric Exam Present: normal affect, normal thought process. Absent: auditory hallucinations, visual hallucinations Assessment and Plan (1) Cirrhosis Status: Acute Qualifiers: Hepatic cirrhosis type: other cirrhosis Qualified Code(s): K74.69 - Other cirrhosis of liver Category: Medical Code(s): K74.60 - Unspecified cirrhosis of liver (2) Elevated liver enzymes Status: Acute Category: Medical Code(s): R74.8 - Abnormal levels of other serum enzymes (3) Thrombocytopenia Status: Acute Category: Medical Code(s): D69.6 - Thrombocytopenia, unspecified (4) Leukocytosis Status: Acute Qualifiers: Leukocytosis type: unspecified Qualified Code(s): D72.829 - Elevated white blood cell count, unspecified Category: Medical Code(s): D72.829 - Elevated white blood cell count, unspecified (5) CAD (coronary artery disease) Status: Chronic Qualifiers:
[2020-10-22 10:36] LABS: Lymphocytes % 5 % (10-50); Myelocytes % 13 (0-1); Neutrophils % 5 % (42-76); Nucleated Red Blood Cells 23; Promyelocytes % 66 %; Total Cells Counted 100
[2020-10-22 10:37] LABS: Corrected White Blood Count 43.5 K/mm3 (4.8-10.8)
--- NOTE | 2020-10-22 10:37 | PC.NURSE ---
LATE ENTRY DR MAHAJAN MADE AWARE OF CRITICAL LABS THIS AM
[2020-10-22 10:38] LABS: Poikilocytosis 3+
[2020-10-22 10:39] LABS: Stomatocytes 3+
[2020-10-22 10:40] LABS: Platelet Estimate Marked Decrease
[2020-10-22 12:03] LABS: POC Glucose,Bedside 97 (70-110)
--- NOTE | 2020-10-22 14:11 | HMH.GEROBB ---
Gastroenterology Consult Consult:: S: Patient with pneumonia, COPD and reported liver issues and primary complaints GI are dysphagia. He is having difficulty swallowing solids and sometimes even liquids. He has lost 15 pounds. He reports some epigastric abdominal burning and soreness. The patient had seen me for an inpatient upper endoscopy in August 2019. At that time he had a large upper GI bleed and had been transferred to the [facility] on a weekend. The patient left that hospital and went to [facility] and I was consulted. He had received 4 units of PRBCs. 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 Biopsies did not show any evidence of dysplasia. He did have superficial gastric ulceration. Presently the patient reports dysphagia. He reports no prior liver disease. He reports no melena or hematochezia. He does have moderate anemia now with hemoglobin 8.0 and hematocrit 29.2. His platelet count today was 14,000 and his white blood cell count is up to 48,000 yesterday and then today his WBC was up over 50,000. O: Afebrile vital signs stable Cardiovascular regular rate and rhythm Abdomen: Normoactive bowel sounds, soft, very mild tenderness in the epigastrium, nondistended A/P: 1. Dysphagia. The patient did previously have Razo's esophagus identified just over 1 year ago (short segment) but biopsies failed to show dysplasia. Given his progressive dysphagia, he will need an EGD. However, he has significant thrombocytopenia and I do feel that there is some risk (sedation and procedural) with EGD. He can still tolerate liquids. I would favor that he have a hematologic evaluation of his marked leukocytosis to ensure that he does not have a hematologic disease or leukemia. He is due to be transferred to the [facility]. I would recommend an EGD when platelet count improves or with possible platelet infusion or Nplate or Promacta. If the patient not transferred over weekend, may try to do EGD on Sunday if platelet count improves. I do feel that he poses some risk for the endoscopy and sedation until we can determine etiology of his marked leukocytosis and thrombocytopenia.
--- NOTE | 2020-10-22 17:49 | PC.NURSE ---
CALLED REPORT TO [facility] AT THIS TIME.
--- NOTE | 2020-10-22 18:08 | PC.NURSE ---
REPORT HAS BEEN CALLED TO [facility], AT THIS TIME PT IS AOX4, ABLE TO MAKE NEEDS KNOWN TO STAFF, HE IS REQUIRING 3LNC FOR O2 SUPPORT, HE USES THE URINAL AT THE BEDSIDE FOR ELIMINATION, HE HAS RESTED IN BED FOR MOST OF SHIFT, GI CONSULT COMPLETED, PT TOLERATING CLEAR LIQUIDS AND WAS ADVANCED TOLERATED LAST PO INTAKE WAS SOUP THAT HE TOLERATED WELL, NO NEEDS AT THIS TIME.
--- NOTE | 2020-10-22 18:53 | PC.NURSE ---
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
--- NOTE | 2020-10-22 20:18 | PC.NURSE ---
Report given to EMS personnel.
--- NOTE | 2020-10-22 20:22 | PC.NURSE ---
patient left floor with EMS at this time.
--- NOTE | 2020-10-22 20:27 | PC.NURSE ---
Leaving facility with EMS to be transferred to [facility].
[2020-10-23 06:11] LABS: Peripheral Smear Review Scanned Result
== END 2020-10-22 20:30 | disposition short-term general hospital (02) | DRG 194 ==
LOC: ER 11:51 → 2ND 13:37
PROVIDERS: Nurse Practitioner Family; Admitting Provider Emergency Medicine; Emergency Provider Emergency Medicine; PCP Emergency Medicine; Visit Provider Emergency Medicine
DX: J18.9 Pneumonia, unspecified organism (principal); C95.90 Leukemia, unspecified not having achieved remission; C92.10 Chronic myeloid leukemia, BCR/ABL-positive, not having achieved remission; J44.9 Chronic obstructive pulmonary disease, unspecified; K74.69 Other cirrhosis of liver; I25.10 Atherosclerotic heart disease of native coronary artery without angina pectoris; I65.23 Occlusion and stenosis of bilateral carotid arteries; I10 Essential (primary) hypertension; Z79.51 Long term (current) use of inhaled steroids; Z79.899 Other long term (current) drug therapy
CPT/HCPCS: 36415; 70371; 71045; 74221; 74246; 80048; 80053; 82803; 82962; 83690; 84484; 85007; 85025; 85610; 85730; 86328; 87205; 92611; 93005; 93306; 94640; 94761; 96365; 96367; 96375; 99285; G0378